=== PATIENT | female | born 1960 | race Caucasian/White ===

== ENCOUNTER → 2018-07-11 13:17 | Outpatient (BNVA) | payer MEDICARE, MEDICAID, SELFPAY | PROVIDERS: PCP Family Medicine; Visit Provider Psychiatry & Neurology Neurology | DX: G40.109 Localization-related (focal) (partial) symptomatic epilepsy and epileptic syndromes with simple partial seizures, not intractable, without status epilepticus (principal); Q04.6 Congenital cerebral cysts; N20.0 Calculus of kidney | CPT/HCPCS: 99214 ==

== ENCOUNTER 2018-10-03 09:11 | Outpatient (CLI) | payer MEDICARE, MEDICAID, SELFPAY ==
--- NOTE | 2018-10-03 13:34 | DI.RAD_ITS ---
SYMPTOMS/DIAGNOSIS: MONITOR KIDNEY STONE, CALCULUS OF KIDNEY, NEPHROLITHIASIS, N20.0 FLAT PLATE ABDOMEN: Comparison is 05/04/16. The kidneys are largely obscured by overlying bowel. No urinary tract calculi are identified. Calcifications in the pelvis appear stable compared to 2016 and likely are vascular in nature. There is a moderate amount of retained stool in the colon. There is again seen a mild left convex scoliosis of the lumbar spine. The bones appear intact. IMPRESSION: 1. No obvious urinary tract calculi. 2. Moderate amount of retained stool.
== END 2018-10-03 09:31 ==
PROVIDERS: PCP Family Medicine; Visit Provider Psychiatry & Neurology Neurology
DX: N20.0 Calculus of kidney (principal); K59.00 Constipation, unspecified
CPT/HCPCS: 74018

== ENCOUNTER 2018-10-10 16:51 | Outpatient (REF) | payer MEDICARE, MEDICAID, SELFPAY ==
--- NOTE | 2018-10-10 15:30 | PAPFT_PTH ---
PATIENT: Navya Barron LOC: [facility] U#:[id number] AGE/SX: 58/F ROOM: RE10/10/[address]: Angelique Cardona MD : 1960 BED: DIS: 10/10/2018 SPEC #: [id number] RECD: 10/11/18 12:47 STATUS: LOU GOLDMAN #: [id number] SRIRAM: 10/10/18 15:[address]: Angelique Cardona DEPT: [facility] Cytology RECD BY: Esthela Escobar Tissues: 1 - CX/ENDOCX FOR PAP SMEARS Procedures: PAP THIN PREP/UVM Screening HPV DNA PROBE Comments: [id number]
== END 2018-10-10 17:11 ==
LOC: LBN 16:51
PROVIDERS: PCP Family Medicine; Visit Provider Family Medicine
DX: Z12.4 Encounter for screening for malignant neoplasm of cervix (principal); Z11.51 Encounter for screening for human papillomavirus (HPV)
CPT/HCPCS: 88142; 87624

== ENCOUNTER 2018-10-15 00:19 | Outpatient (CLI) | payer MEDICARE, MEDICAID, SELFPAY ==
--- NOTE | 2018-10-15 15:30 | DI.MAMMO_ITS ---
SYMPTOM/DIAGNOSIS: SCREENING MAMMOGRAMS: Mammograms were interpreted according to the usual protocol including computer analysis with CAD system, tomosynthesis and C view imaging. Comparison is made with exams from [id number]. The breasts are composed of scattered fibroglandular densities, breast density, Category B. The patient was difficult to position due to immobility of the right arm and shoulder. The pectoral muscle was unable to sufficiently included on the right MLO view. No suspicious masses or suspicious microcalcifications are seen. There has been no significant change. IMPRESSION: Category 1, negative mammogram. Yearly screening mammography is recommended. [facility] ASSESSMENT OF FINDINGS: Negative. Category 1. Patient will receive a letter notifying them of these results. BI-RADS category B. There are scattered areas of fibroglandular density.
== END 2018-10-15 00:39 ==
PROVIDERS: PCP Family Medicine; Visit Provider Family Medicine
DX: Z12.31 Encounter for screening mammogram for malignant neoplasm of breast (principal)
CPT/HCPCS: 77063; 77067

== ENCOUNTER → 2019-01-14 13:59 | Outpatient (BNVA) | payer MEDICARE, MEDICAID, SELFPAY | PROVIDERS: PCP Family Medicine; Visit Provider Psychiatry & Neurology Neurology | DX: G40.109 Localization-related (focal) (partial) symptomatic epilepsy and epileptic syndromes with simple partial seizures, not intractable, without status epilepticus (principal); N20.0 Calculus of kidney; R25.2 Cramp and spasm | CPT/HCPCS: 99214 ==

== ENCOUNTER → 2019-01-21 11:30 | Outpatient (BNVA) | payer MEDICARE, MEDICAID, SELFPAY | PROVIDERS: PCP Family Medicine; Referring Provider Family Medicine; Visit Provider Physical Therapy Assistant | DX: K21.9 Gastro-esophageal reflux disease without esophagitis (principal); Z12.11 Encounter for screening for malignant neoplasm of colon | CPT/HCPCS: 99213 ==

== ENCOUNTER 2019-02-26 06:44 | Day surgery (SDC) | payer MEDICARE, MEDICAID, SELFPAY ==
--- NOTE | 2019-02-26 06:50 | ENDO_ITS ---
Date of service: 02/26/19 Time of Service: :43 Endoscopy Report DATE OF PROCEDURE: 02/26/19 PRE-OP DIAGNOSIS: Colon CAncer Screening/ Breakthrough GERD symptoms POST-OP DIAGNOSIS: other (Gastritis and esophagitis, normal colonoscopy) PROCEDURE: 1. EGD with bx 2. Colonoscopy SURGEON: Marly Sterling ANESTHESIA: other (General/ ASA 2/Harris Carlos CRNA and Valente Bolton CRNA) ESTIMATED BLOOD LOSS: 3 PATHOLOGY: other (Antrum bx, GE junction bx) COMPLICATIONS: None DISPOSITION: same day INDICATIONS: Mrs. Barron is a pleasant 58 year old female seen in the office for a screening colonoscopy as well as an EGD for Breakthrough GERD symptoms. She is on 40 mg of omeprazole per day. Risks, benefits and complications have been reviewed. Complications include but are not limited to bleeding, pain, perforation, missed small lesion/polyp, sore throat, aspiration and adverse reaction to the medications. Questions were entertained and answered to their satisfaction and they wished to proceed. No guarantees were given or implied. PREP: Miralax/Dulcolax PROCEDURE START TIME: PROCEDURE END TIME: 08:15 FINDINGS: Moderate GAstritis and esophagitis Small Hiatral hernia Normal colonoscopy PROCEDURE DESCRIPTION: After informed consent was obtained the patient was take to the procedure room and placed in a supine position. Monitors were applied and a time out was done. The patients name, date of , procedure type, allergies to medications and metal in their body was reviewed. A bite block was placed and the patient was sedated. Once sedated and comfortable the gastroscope was advanced through the oropharynx which was grossly normal into the esophagus. The proximal and mid- esophagus were normal. In the distal esophagus there was mild inflammation noted. The scope was advanced into the stomach and through the pylorus into the 3rd portion of the duodenum. The duodenum was noted to be normal. The scope was retracted back into the stomach and biopsies were done to rule out H. pylori. There were no ulcers. The scope was retro-flexed. The cardia and fundus were noted to be normal. There was a small hiatal hernia noted. The scope was retracted back into the esophagus and biopsies were done of the GE junction to rule out Delgado's. The Z line was regular. The GE junction was at 33 cm. While the patient was still sedated they were placed in a left decubitous position. A rectal exam was done. External exam was normal. Internal exam revealed a normal sphincter tone and no palpable masses. The scope was then introduced and retro-flexed. No internal hemorrhoids, masses or polyps were identified. The scope was then advanced to the cecum without difficulty. The TI and appendiceal orifice were identified. The prep was adequate. The scope was then slowly retracted over 15 minutes back into the rec anupama. The scope was removed and the patient was woken up and taken back to Same day surgery in stable condition. The patient tolerated the procedure well and there were no immediate complications. Follow up: with PCP in 2 weeks. I will add Ranitidine at night.
--- NOTE | 2019-02-26 06:53 | W.PM.HP.N ---
Date of service: 02/26/19 Assessment and Plan Assessment and plan (1) Encounter for colonoscopy due to history of adenomatous colonic polyps: Status: Acute Assessment and plan: P\\ Colonoscopy under sedation Risks, benefits and complications have been reviewed. Complications include but are not limited to bleeding, pain, perforation, missed small lesion/polyp, sore throat, aspiration and adverse reaction to the medications. Questions were entertained and answered to their satisfaction and they wished to proceed. No guarantees were given or implied. (2) GERD (gastroesophageal reflux disease): Status: Chronic Assessment and plan: P\\ EGD Risks, benefits and complications have been reviewed. Complications include but are not limited to bleeding, pain, perforation, sore throat, aspiration, and adverse reaction to the medications. Questions were entertained and answered to their satisfaction and they wished to proceed. No guarantees were given or implied. Qualifiers: Esophagitis presence: esophagitis presence not specified Qualified Code(s): K21.9 - Gastro-esophageal reflux disease without esophagitis History of Present Illness Narrative: 58 y/o female with history of cerebral palsy, partial epilepsy and right hemiparesis presents for colonoscopy screening pre-op. Her last screening was in 2008, which was unremarkable. She denies a family history of colon cancer. She denies any changes in bowel habits including bloody or black tarry stools, abdominal pain, diarrhea or constipation. She denies constitutional symptoms. Denies use of marijuana or any other recreational or illegal drugs. Of note she does reports complaints of burning in the throat at times. She has been taking Omeprazole with mild improvement in her symptoms. She denies dysphagia. She denies chest pain, palpitations, dyspnea or dyspnea with exertion. She denies family history of adverse reactions or complications with anesthesia. Of note she reports following a procedure under sedation for the excision of a lipoma, while recovering from anesthesia she had seizures. Review of Systems Constitutional Constitutional: Denies fever(s) Cardiovascular Cardiovascular: Denies chest pain, Denies palpitations and Denies dyspnea Respiratory Respiratory: Denies dyspnea Endocrine Endocrine: Denies palpitations [facility] Medical History (Updated 02/26/19 @ 06:56 by Marly Sterling MD) Anxiety Cerebral palsy Depression GERD (gastroesophageal reflux disease) (Chronic) Nephrolithiasis (Chronic) Seizure disorder Surgical History BENIGN-tumor removed (04/14/15) Bilateral salpingectomy with oophorectomy bilateral salpingo oophorectomy (benign tumor) -2014 [facility] [place] Breast, Cyst Aspiration (11/22/04) CLAVICLE FX (06/05/06) LEFT Colonoscopy - MAC 10/20/08 Ligation of fallopian tube RIB FX (06/27/07) 10TH RIGHT RIB Family History Mother , AGE 65 Substance abuse Diabetes Heart disease Father Heart disease Alcohol abuse Stroke Sister Diabetes Depression Sister Alcohol abuse Daughter No problems noted. Daughter Asthma Social History Smoking/Tobacco Use Status: Never Alcohol Intake: former Drug use: Never Substance use type: does not use Duration: 30-45 minutes/day Frequency: 3-4 times per week Cherelle/Quaker: None Special cherelle needs: No Do you feel safe at home: Yes Do you feel safe in your relationship?: Yes Meds Home Medications and Allergies Home Medications Medication Instructions Recorded Confirmed Type calcium citrate-vitamin D3 1 ea PO BID #90 tab-cap 02/20/14 02/21/19 History [Calcitrate-Vitamin D] folic acid 1 mg tablet 1 mg PO DAILY #90 tab-cap 04/12/18 02/21/19 Rx paroxetine HCl 30 mg tablet 60 mg PO DAILY #180 tab-cap 04/12/18 02/21/19 Rx omeprazole 40 mg capsule,delayed 20 mg PO DAILY tab-cap 07/11/18 02/21/19 History release zonisamide 100 mg capsule 400 mg PO HS #360 tab-cap 01/14/19 02/21/19 Rx bisacodyl 5 mg tablet,delayed 5 mg PO ONCE #4 tab 01/21/19 01/21/19 Rx release magnesium hydroxide 400 mg (170 mg mg PO DAILY tab 01/21/19 01/21/19 History magnesium) chewable tablet polyethylene glycol 3350 17 238 g PO ONCE #238 gm 01/21/19 01/21/19 Rx gram/dose oral powder Allergies Allergy/AdvReac Type Severity Reaction Status Date / Time rizatriptan benzoate Allergy Unknown Verified 02/21/19 15:34 [From [facility]] Silk Tape AdvReac Unknown Skin Rash Uncoded 02/21/19 15:34 Exam HENMT Head: normocephalic and atraumatic Resp Effort & Inspection: normal respiratory effort Auscultation: clear to auscultation bilaterally Cardio Rate: regular rate Rhythm: regular rhythm
[2019-02-26 06:54] VITALS: BP 99/66; PULSE 81; RESP 18; TEMP 36.6; O2SAT 95
--- NOTE | 2019-02-26 06:58 | W.PM.DSUDISC ---
Discharge Plan Disposition Patient Disposition: HOME Condition: Good Discharge Details Reason For Visit: Colon Cancer Screening/ GERD Attending Provider: Marly Sterling Primary Care Provider: Angelique Cardona Home Meds and New Rx's Prescriptions: New omeprazole 40 mg capsule,delayed release(DR/EC) 40 mg PO QAM Qty: 30 RF: 0 ranitidine HCl [Heartburn Relief (ranitidine)] 150 mg tablet 150 mg PO QHS Qty: 30 RF: 0 Continued zonisamide [Zonegran] 100 mg capsule 400 mg PO HS Qty: 360 RF: 3 paroxetine HCl [Paxil] 30 mg tablet 60 mg PO DAILY Qty: 180 RF: 3 folic acid 1 mg tablet 1 mg PO DAILY Qty: 90 RF: 4 magnesium hydroxide 400 mg (170 mg magnesium) tablet,chewable PO DAILY RF: 0 calcium citrate-vitamin D3 [Calcitrate-Vitamin D] 1 EACH tablet 1 ea PO BID Qty: 90 RF: 11 Discontinued omeprazole 40 mg capsule,delayed release(DR/EC) 20 mg PO DAILY RF: 0 polyethylene glycol 3350 17 gram/dose powder 238 g PO ONCE Qty: 238 RF: 0 bisacodyl [Dulcolax (bisacodyl)] 5 mg tablet,delayed release (DR/EC) 5 mg PO ONCE Qty: 4 RF: 0 Discharge Instructions Instructions: Colonoscopy (DC), Upper Endoscopy (DC), Diet for Stomach Ulcers and Gastritis (GEN), Gastritis (DC) Additional Instructions: Findings: mild to moderate gastritis and esophagitis Follow up: with PCP in 2 weeks Colonoscopy in 10 years Please call if you develop: fevers >101.5 Nausea or Vomiting Abdominal pain that is not transient DAY SURGERY UNIT POST ENDOSCOPY INSTRUCTIONS 1. Because there will be medication in your system for the next 24 hours, you may feel a little sleepy. Your coordination will be affected. Therefore: a. Do not drive or operate dangerous equipment for 24 hours. b. Do not drink alcohol beverages for 24 hours (not even beer). c. Plan to go home and rest for the day. 2. Generally there are no restrictions on your activity after a day or so has gone by, but you may feel a bit fatigued for a few days. 3 After you arrive home you may have a light meal and return to a normal diet as you can tolerate it without feeling sick to your stomach. 4. After surgery, you may feel pain or discomfort. This should be only transient, but if it persists please contact your doctor. 5. If there are any questions regarding the findings of your procedure, please feel free to contact your doctor. 6. If you are unable to contact your doctor with a problem, contact the hospital at [phone]. 7. Continue all your regular medications unless directed otherwise. I understand the above instructions and have no questions. Signature of Patient or Responsible Adult Escort Date/Time Name of Responsible Adult Escort Signature of Nurse Date/Time Referrals: Angelique Cardona MD [Primary Care Provider] - (2 weeks) Activity:: Activity as Tolerated Diet:: low acid Discharge Orders Discharge Orders: Discharge Order (Routine); Ordered 02/26/19 Ordered By: Marly Sterling DS: Diagnosis Discharge Diagnosis (1) Encounter for colonoscopy due to history of adenomatous colonic polyps: Status: Acute (2) GERD (gastroesophageal reflux disease): Status: Chronic (3) Gastritis: Status: Acute (4) Esophagitis: Status: Acute (5) H/O esophagogastroduodenoscopy: Status: Chronic
[2019-02-26] MEDS: Lactated Ringers 1,000 ML 80 ML IV (07:30)
--- NOTE | 2019-02-26 07:45 | STOM_PTH ---
PATIENT: Navya Barron LOC: [facility] U#:[id number] AGE/SX: 58/F ROOM: RE02/26/[address]: Marly Sterling MD : 1960 BED: DIS: 02/26/2019 SPEC #: [id number] RECD: 02/26/19 12:42 STATUS: LOU RE #: [id number] SRIRAM: 02/26/19 07:[address]: Marly Sterling DEPT: Surgical Specimen RECD BY: Esthela Escobar ENTERED: 02/26/19 12:43 SP TYPE: STOMACH OTHR DR: Angelique Cardona MD Tissues: 1 - STOMACH BIOPSY 2 - ESOPHAGUS BIOPSY Procedures: GROSS AND MICRO LEVEL 4 Comments: [id number]
[2019-02-26 09:01] VITALS: BP 113/71; PULSE 78; RESP 16; TEMP 36.3; O2SAT 99
== END 2019-02-26 09:20 | disposition home or self-care (01) ==
PROVIDERS: PCP Family Medicine; Visit Provider Surgery
PROC: (CPT 43239; principal; 2019-02-26 07:30)
DX: Z12.11 Encounter for screening for malignant neoplasm of colon (principal); K21.0 Gastro-esophageal reflux disease with esophagitis; K31.89 Other diseases of stomach and duodenum; K44.9 Diaphragmatic hernia without obstruction or gangrene; G80.9 Cerebral palsy, unspecified
CPT/HCPCS: 43239; G0121; 88305; NC

== ENCOUNTER 2019-03-16 14:44 | Emergency (ER) | payer MEDICARE, MEDICAID, SELFPAY ==
--- NOTE | 2019-03-16 15:55 | DI.RAD_ITS ---
EXAM: XR FOOT LT COMPLETE INDICATION: left foot pain. COMPARISON: No exams were available for comparison TECHNIQUE: 2D digital imaging was performed. FINDINGS: Three views were obtained. There is a fracture of the 5th metatarsal with moderate displacement. Th e fracture involves the distal diaphysis and metaphysis. The articulation with the proximal phalanx of the 5th toe appears intact. No additional fracture seen. IMPRESSION:
--- NOTE | 2019-03-16 17:11 | DI.VRAD_ITS ---
PROCEDURE INFORMATION: Exam: XR Left Foot Complete Exam date and time: 03/16/2019 4:51 PM Clinical history: 58 years old, female; Injury or trauma; Fall; Initial encounter; Blunt trauma; Foot; Left TECHNIQUE: Imaging protocol: XR Left foot. Views: 3 or more views. COMPARISON: No relevant prior studies available. FINDINGS: Bones/joints: Fracture dislocation left fifth distal metatarsal. Soft tissues: Soft tissue swelling left foot. IMPRESSION: Fracture dislocation of the left metatarsal. Dictated and Authenticated by: Cherrie Moseley MD. Ordering:ELBERT Boyd MD
--- NOTE | 2019-03-16 17:12 | W.ED.GENAD ---
Discharge Plan Discharge Details Chief Complaint: Orthopedic Clinical Impression: Closed fracture of fifth metatarsal bone of left foot Primary Care Provider: Angelique Cardona ED Provider: Tru Leong Home Meds and New Rx's Prescriptions: No Action zonisamide [Zonegran] 100 mg capsule 400 mg PO HS Qty: 360 RF: 3 paroxetine HCl [Paxil] 30 mg tablet 60 mg PO DAILY Qty: 180 RF: 3 folic acid 1 mg tablet 1 mg PO DAILY Qty: 90 RF: 4 magnesium hydroxide 400 mg (170 mg magnesium) tablet,chewable 400 mg PO DAILY RF: 0 calcium citrate-vitamin D3 [Calcitrate-Vitamin D] 1 EACH tablet 1 ea PO BID Qty: 90 RF: 11 ranitidine HCl [Heartburn Relief (ranitidine)] 150 mg tablet 150 mg PO QHS Qty: 30 RF: 0 omeprazole 40 mg capsule,delayed release(DR/EC) 20 mg PO QAM RF: 0 Discharge Instructions Additional Instructions: Your x-rays confirm a fracture of the outside bone in your left foot. I spoke to Dr. Lyle from orthopedics who recommends girish taping the fifth and fourth toes together and wearing a orthopedic boot until follow-up. You can weight-bear over the left foot as tolerated while using a cane and/or walker. Take Tylenol and/or Motrin for pain. Ice and elevate the limb for swelling. Return should symptoms of pain or swelling significantly increased. Referrals: Sameer Lyle MD [ [facility] STAFF PHYSICIAN] - 3 days Discharge Data Discharge Date/Time-TO BE ENTERED AT DEPARTURE: 03/16/19 17:43 Medical Decision Making This is a nontoxic-appearing 4-year-old female with a significant history for cerebral palsy who presents to the emergency department with left foot injury. X-rays confirm distal fifth metatarsal fracture. Minimal displacement. No significant angulation. No tenting or open lesion on exam. Discussed case with Dr. Lyle from orthopedics who states based on the x-ray read girish taping of the fifth and fourth digit along with stiff soled shoe and/or orthopedic boot with weight bearing as tolerated indicated. We will follow-up with the office in the next 1 to 2 weeks. HPI General Date/Time Provider Initiated Documentation: 03/16/19 15:10. HPI Narrative: Patient is a 58-year-old female with a significant history for cerebral palsy who presents to the emergency department status post left foot injury. Patient states that she struck her left foot on the hot tub at home. She had pain and swelling along the distal lateral aspect of the left foot. She denies any numbness or tingling. She is been unable to place full weight over the area since the injury. Related Data Home Medications Medication Instructions Recorded Confirmed calcium citrate-vitamin D3 1 ea PO BID #90 tab-cap 02/20/03/16/19 [Calcitrate-Vitamin D] folic acid 1 mg tablet 1 mg PO DAILY #90 tab-cap 04/12/18 03/16/19 paroxetine HCl 30 mg tablet 60 mg PO DAILY #180 tab-cap 04/12/18 03/16/19 zonisamide 100 mg capsule 400 mg PO HS #360 tab-cap 01/14/19 03/16/19 magnesium hydroxide 400 mg (170 mg 400 mg PO DAILY tab 01/21/19 03/16/19 magnesium) chewable tablet ranitidine HCl [Heartburn Relief 150 mg PO QHS #30 tab 02/26/19 03/16/19 (ranitidine)] omeprazole 20 mg PO QAM 03/16/19 03/16/19 Previous Rx's Medication Instructions Recorded folic acid 1 mg tablet 1 mg PO DAILY #90 tab-cap 04/12/18 paroxetine HCl 30 mg tablet 60 mg PO DAILY #180 tab-cap 04/12/18 zonisamide 100 mg capsule 400 mg PO HS #360 tab-cap 01/14/19 ranitidine HCl [Heartburn Relief 150 mg PO QHS #30 tab 02/26/19 (ranitidine)] Allergies Allergy/AdvReac Type Severity Reaction Status Date / Time rizatriptan benzoate Allergy Unknown Verified 03/16/19 14:56 [From [facility]] Silk Tape AdvReac Unknown Skin Rash Uncoded 03/16/19 14:56 General Stated Complaint: Orthopedic CORY: 4 Review of Systems Constitutional Constitutional: Denies lethargy and Denies weakness ENT Ears, Nose, Mouth, and Throat: Denies dizziness Musculoskeletal Musculoskeletal: Reports abnormal gait, Reports deformity, Denies muscle weakness, Denies numbness and Denies stiffness Neurologic Neurologic: Reports abnormal gait, Denies dizziness, Denies focal weakness, Denies numbness and Denies weakness [facility] Medical History Anxiety Cerebral palsy Depression GERD (gastroesophageal reflux disease) (Chronic) Nephrolithiasis (Chronic) Seizure disorder Surgical History BENIGN-tumor removed (04/14/15) Bilateral salpingectomy with oophorectomy bilateral salpingo oophorectomy (benign tumor) [facility] [place] Breast, Cyst Aspiration (11/22/04) CLAVICLE FX (06/05/06) LEFT Colonoscopy - MAC (~02/26/19) 10/20/08 H/O esophagogastroduodenoscopy (Chronic ~02/26/19) Ligation of fallopian tube RIB FX (06/27/07) 10TH RIGHT RIB Family History Mother , AGE 65 Substance abuse Diabetes Heart disease Father Heart disease Alcohol abuse Stroke Sister Diabetes Depression Sister Alcohol abuse Daughter No problems noted. Daughter Asthma Social History Smoking/Tobacco Use Status: Never Alcohol Intake: former Drug use: Never Substance use type: does not use Duration: 30-45 minutes/day Frequency: 3-4 times per week Cherelle/Baptism: None Special cherelle needs: No Do you feel safe at home: Yes Exam Const General: cooperative, healthy appearing, comfortable and no acute distress Orientation: alert, awake and oriented x3 HENMT Head: normal to inspection Resp Effort & Inspection: normal respiratory effort Extrem Left lower extremity: foot Details: tenderness and ecchymosis (distal dorsal lateral left foot) Course Vital Signs Vital signs: Respiratory Effort Non-Labored 03/16/19 14:52
[2019-03-16 17:24] VITALS: BP 110/61; PULSE 66; RESP 16; TEMP 36.6
== END 2019-03-16 17:43 ==
PROVIDERS: Emergency Provider Physician Assistant; PCP Family Medicine
DX: S92.352A Displaced fracture of fifth metatarsal bone, left foot, initial encounter for closed fracture (principal); W22.8XXA Striking against or struck by other objects, initial encounter
CPT/HCPCS: 26600; 28470; 73630; L4361

== ENCOUNTER 2019-04-09 10:11 | Outpatient (CLI) | payer MEDICARE, MEDICAID, SELFPAY ==
--- NOTE | 2019-04-09 09:23 | DI.RAD_ITS ---
EXAM: XR FOOT LT COMPLETE INDICATION: F/U FRACTURE. TECHNIQUE: 2D digital imaging was performed. FINDINGS: There has been no change in alignment of the distal 5th metatarsal fracture.
== END 2019-04-09 10:31 ==
PROVIDERS: PCP Family Medicine; Visit Provider Student in an Organized Health Care Education/Training Program
DX: S92.352A Displaced fracture of fifth metatarsal bone, left foot, initial encounter for closed fracture (principal); W19.XXXA Unspecified fall, initial encounter; G40.909 Epilepsy, unspecified, not intractable, without status epilepticus; Z79.899 Other long term (current) drug therapy; G80.9 Cerebral palsy, unspecified
CPT/HCPCS: 99204; 99215; 73630

== ENCOUNTER 2019-04-23 08:39 | Outpatient (CLI) | payer MEDICARE, MEDICAID, SELFPAY ==
--- NOTE | 2019-04-23 14:00 | DI.US_ITS ---
EXAM: US LOWER EXTREMITY VENOUS RT US LOWER EXTREMITY VENOUS RT CLINICAL HISTORY: injury right leg R60.9 EDEMA, R22.9 SWELLING. injury right leg R60.9 EDEMA, R22.9 SWELLING TECHNIQUE: Lower extremity venous ultrasound performed using grayscale, color-flow, and spectral Dop pler analysis. COMPARISON: No exams were available for comparison FINDINGS: The common femoral, femoral and popliteal veins demonstrate normal compressibility, augmentation, and color Doppler. The posterior tibial veins are patent. The saphenous vein appears free of thrombus. No Leiva's cyst or hematoma is seen. IMPRESSION: No evidence of DVT.
== END 2019-04-23 08:59 ==
PROVIDERS: PCP Family Medicine; Visit Provider Nurse Practitioner
DX: R22.41 Localized swelling, mass and lump, right lower limb (principal); R60.0 Localized edema; S89.91XA Unspecified injury of right lower leg, initial encounter
CPT/HCPCS: 93971

== ENCOUNTER 2019-05-14 09:09 | Outpatient (CLI) | payer MEDICARE, MEDICAID, SELFPAY ==
--- NOTE | 2019-05-14 09:30 | DI.RAD_ITS ---
EXAM: XR FOOT LT COMPLETE INDICATION: f/u left fifth metatarsal bone of left foot.. COMPARISON: XR FOOT LT COMPLETE from 04/09/2019 TECHNIQUE: 2D digital imaging was performed. FINDINGS: There has been no change in the alignment of the previously noted fracture at the distal 5th metatars al. There is increased callus formation when compared with the previous exam. No new abnormalities a re seen. IMPRESSION
== END 2019-05-14 09:29 ==
PROVIDERS: PCP Family Medicine; Referring Provider Family Medicine; Visit Provider Student in an Organized Health Care Education/Training Program
DX: S92.352D Displaced fracture of fifth metatarsal bone, left foot, subsequent encounter for fracture with routine healing (principal); W01.0XXD Fall on same level from slipping, tripping and stumbling without subsequent striking against object, subsequent encounter
CPT/HCPCS: 99213; 73630

== ENCOUNTER → 2019-07-15 12:09 | Outpatient (BNVA) | payer MEDICARE, MEDICAID, SELFPAY | PROVIDERS: PCP Family Medicine; Referring Provider Family Medicine; Visit Provider Psychiatry & Neurology Neurology | DX: R69 Illness, unspecified (principal) | CPT/HCPCS: 99213 ==

== ENCOUNTER 2019-07-15 14:05 | Outpatient (CLI) | payer MEDICARE, MEDICAID, SELFPAY ==
--- NOTE | 2019-07-15 12:57 | DI.RAD_ITS ---
EXAM: XR ABDOMEN FLAT PLATE INDICATION: NEPHROLITHIASIS, N20.0, MONITORING WHILE ON ZONEGRAN. COMPARISON: No exams were available for comparison TECHNIQUE: 2D digital imaging was performed. FINDINGS: The lung bases are clear. There is stool seen throughout the colon. There is no bowel distension or air-fluid levels. No urinary tract calculi are visible; however, stones could be obscured due to th e quantity of stool. Scoliosis and degenerative changes are seen in the spine. Hip joints are unrem arkable. IMPRESSION: Increased quantity of fecal material. No visible urinary tract calculi.
== END 2019-07-15 14:25 ==
PROVIDERS: PCP Family Medicine; Visit Provider Psychiatry & Neurology Neurology
DX: N20.0 Calculus of kidney (principal); K59.00 Constipation, unspecified; G40.109 Localization-related (focal) (partial) symptomatic epilepsy and epileptic syndromes with simple partial seizures, not intractable, without status epilepticus
CPT/HCPCS: 99213; 74018

== ENCOUNTER 2019-07-30 02:29 | Outpatient (CLI) | payer MEDICARE, MEDICAID, SELFPAY ==
[2019-07-30 12:57] LABS: ALT 19 U/L (14-59); AST 12 U/L (15-37); Albumin 3.8 g/dL (3.4-5.0); Alkaline Phosphatase 58 U/L (46-116); BUN 13 mg/dL (7-18); Bilirubin, Total 0.4 mg/dL (0.2-1.0); CREATININE 1.08 mg/dL (0.55-1.02); Calcium 9.1 mg/dL (8.5-10.1); Calculated LDL 164 mg/dL (<100); Chloride 107 mmol/L (98-107); Cholesterol 261 mg/dL (<200); Estimated GFR 51.58 (mL/min/1.73m2); Glucose 87 mg/dL (74-106); HDL Cholesterol 79 mg/dL (40-60); Potassium 3.9 mmol/L (3.5-5.1); Sodium 143 mmol/L (136-145); Triglyceride 93 mg/dL (<150)
== END 2019-07-30 02:49 ==
PROVIDERS: PCP Family Medicine; Visit Provider Family Medicine
DX: E78.5 Hyperlipidemia, unspecified (principal); E83.42 Hypomagnesemia
CPT/HCPCS: 36415; 80053; 80061; 83735

== ENCOUNTER → 2020-01-13 10:35 | Outpatient (BNVA) | payer MEDICARE, MEDICAID, SELFPAY | PROVIDERS: PCP Family Medicine; Referring Provider Family Medicine; Visit Provider Psychiatry & Neurology Neurology | DX: G40.109 Localization-related (focal) (partial) symptomatic epilepsy and epileptic syndromes with simple partial seizures, not intractable, without status epilepticus (principal); N20.0 Calculus of kidney | CPT/HCPCS: 99213 ==

== ENCOUNTER 2020-06-29 02:35 | Outpatient (CLI) | payer MEDICARE, MEDICAID, SELFPAY ==
--- NOTE | 2020-06-29 08:45 | DI.RAD_ITS ---
EXAM: XR ABDOMEN FLAT PLATE CLINICAL HISTORY: monitoring for renal stones,NEPHROLITHIASIS,N20.0. TECHNIQUE: 2D digital imaging was performed. COMPARISON: CR XR ABDOMEN FLAT PLATE from 07/15/2019 FINDINGS: Bowel gas pattern is nonspecific in the supine position. Visualized lung bases are clear. There is scoliosis convex left in the lumbar spine again noted. Does not appear progressed when compared to 1 year ago. No calcifications seen over the right kidney. There may be a tiny 1 millimeter calcifica tion at the midpole of the left kidney. Phleboliths are again noted in the lower pelvis, unchanged. Sacroiliac joints unremarkable. IMPRESSION: Possible tiny 1 millimeter calculus at the midpole level of the left kidney. No obvious calculi evid ent within the ureters. Scoliosis again noted, unchanged from 1 year ago. DATA REPOSITORY: RADIATION DOSE DELIVERED:
== END 2020-06-29 02:55 ==
PROVIDERS: PCP Family Medicine; Visit Provider Psychiatry & Neurology Neurology
DX: N20.0 Calculus of kidney (principal)
CPT/HCPCS: 74018

== ENCOUNTER → 2020-07-06 11:14 | Outpatient (BNVA) | payer MEDICARE, MEDICAID, SELFPAY | PROVIDERS: PCP Family Medicine; Referring Provider Family Medicine; Visit Provider Psychiatry & Neurology Neurology | DX: G40.109 Localization-related (focal) (partial) symptomatic epilepsy and epileptic syndromes with simple partial seizures, not intractable, without status epilepticus (principal); N20.0 Calculus of kidney | CPT/HCPCS: 99213 ==

== ENCOUNTER 2021-01-04 01:22 | Outpatient (CLI) | payer MEDICARE, MEDICAID, SELFPAY ==
--- NOTE | 2021-01-04 08:15 | DI.MAMMO_ITS ---
Exam(s) MAMMO SCREENING EXAM: MAMMO SCREENING CLINICAL HISTORY: screening,Z12.39. TECHNIQUE: Bilateral full field digital CC and MLO mammographic images were obtained with 3D tomosyn thesis and utilizing computer aided detection (CAD). COMPARISON: Prior mammograms dating back to 2011, the most recent being October 2018.. FINDINGS: There has been no significant change in the appearance and distribution of the fibroglandular tissue. Asymmetric tissue in the upper-outer quadrant of the left breast is unchanged from prior studies. There is no significant architectural distortion nor skin thickening-retraction. IMPRESSION: No radiographic evidence of malignancy. BI-RADS Category 1 - Negative Breast Density - Category C - Heterogeneously dense Breast density Category C or D implies that the patient has dense breast tissue. Dense breast tissue can make it harder to find cancer on a mammogram. Dense breast tissue is also associated with an incr eased risk of breast cancer. This information about the result of the mammogram report was provided to the patient to raise their awareness. Use this report when you speak with the patient about their risks for breast cancer, which includes their family history. At that time, you may recommend additional screening tests (Ultrasoun d or MRI) as these tests may add significant information. A negative radiographic report should not delay biopsy if a dominant or clinically suspicious mass is present. Up to ten percent of cancers are not identified on mammography. A negative report may reinforce clinical impression. Adenosis and dense breasts may obscure an underlying neoplasm. False positive reports average 6 to 10%. Patient will receive a letter notifying them of these results.
== END 2021-01-04 01:42 ==
PROVIDERS: PCP Family Medicine
DX: Z12.31 Encounter for screening mammogram for malignant neoplasm of breast (principal)
CPT/HCPCS: 77063; 77067

== ENCOUNTER 2021-01-28 18:38 | Outpatient (CLI) | payer MEDICARE, MEDICAID, SELFPAY ==
--- NOTE | 2021-01-28 | DI.US_ITS ---
Exam(s) US RENAL EXAM: US RENAL CLINICAL HISTORY: R flank pain, blood in urine TECHNIQUE: Ultrasound performed using standard protocol. COMPARISON: CT RENAL COLIC WO CONTRAST from 10/31/2017 CT RENAL COLIC WO CONTRAST from 10/31/2017 US US LOWER EXTREMITY VENOUS RT from 04/23/2019 FINDINGS: The left kidney is normal in appearance with no evidence of hydronephrosis or nephrolithiasis. On the right there is moderate hydronephrosis. There is a nonobstructing upper pole renal calculus m easuring about 2-3 millimeters. Urinary bladder is essentially empty. Ureteral jets were noted bilaterally. IMPRESSION: Right hydronephrosis of uncertain etiology. Additional evaluation with CT urogram may be considered if clinically appropriate. DATA REPOSITORY:
--- NOTE | 2021-01-28 19:42 | DI.VRAD_ITS ---
PROCEDURE INFORMATION: Exam: US Retroperitoneal; Complete; Kidneys and Bladder Exam date and time: 01/28/2021 6:49 PM Age: 60 years old Clinical indication: Other: R flank pain; Patient HX: Blood in urine TECHNIQUE: Imaging protocol: Real-time ultrasound of the retroperitoneum with image documentation. Complete exam focused on the kidneys and bladder. COMPARISON: CT RENAL COLIC WO CONTRAST 10/31/2017 7:55 PM FINDINGS: Right kidney: Right kidney is 11 x 3.6 x 7.8 cm. There appears to be prominent dilatation of the right renal pelvis. This is also evident on a previous CT from 2018. There also appears to be caliectasis of the right kidney suggesting severe hydronephrosis. Some echogenic foci are seen within calyceal structures of the upper collecting system the right kidney suggesting stones. One measuring 2.[address] does show a distal obstructing ureteral calculus. Recurrent stone disease and obstructive changes suggested by this ultrasound. Left kidney: Left kidney is 8 x 3.4 x 3 cm. No hydronephrosis. No calculi. Urinary bladder: Urinary bladder is under distended. IMPRESSION: 1. Right hydronephrosis with severe renal pelvis distension. This is also seen on prior CT from 2018. There are current calculi seen in the upper pole calyx of the right kidney measuring up to approximately 2 mm. Patient does have a history of obstructive ureteral calculi. There is a obstructing calculus on prior CT in the intramural portion of the distal right ureter. Patient may have a recurrent right obstructive ureteral calculus. 2. Left kidney unremarkable in contour and echogenicity. No hydronephrosis. No calculi. 3. Urinary bladder is under distended. Limited evaluation. Grossly normal as visualized. Dictated and Authenticated by: Marshall Henry MD. Ordering:JOSE Darling MD
== END 2021-01-28 18:58 ==
LOC: NCHCN 18:46 → DI 18:48
PROVIDERS: PCP Family Medicine; Visit Provider Nurse Practitioner Family
DX: N13.2 Hydronephrosis with renal and ureteral calculous obstruction (principal); R10.9 Unspecified abdominal pain; R31.9 Hematuria, unspecified; Z87.442 Personal history of urinary calculi
CPT/HCPCS: 76770

== ENCOUNTER 2021-02-01 02:00 | Outpatient (CLI) | payer MEDICARE, MEDICAID, SELFPAY ==
--- NOTE | 2021-02-01 07:37 | DI.CT_ITS ---
Exam(s) CT ABDOMEN PELVIS WO/W EXAM: CT ABDOMEN PELVIS WO/W CLINICAL HISTORY: Hydronephrosis unknown etiology,n13.30 TECHNIQUE: Imaging Protocol: Axial computed tomography images with coronal and sagittal reformatted images were created and reviewed CONTRAST MATERIAL: Intravenous: Omnipaque 350 Contrast volume:100 mL Oral: No COMPARISON: CT ABD PELVIS WITH CONTRAST from 03/09/2015 CT ABD PELVIS WITH CONTRAST from 03/09/2015 CT RENAL COLIC WO CONTRAST from 10/31/2017 FINDINGS: ABDOMEN: Lung Bases: Normal where visualized. Liver: Normal density. Stable bilateral cysts. Portal, Superior Mesenteric, and Splenic Veins: Unremarkable. Gallbladder and Biliary Tract: No radiodense calculus or dilation. Pancreas: Normal density, no abnormal calcifications or inflammatory process. Spleen: Normal. Adrenals: No masses seen. Kidneys: Normal size, contour and axis. Left nephrolithiasis. No left ureterolithiasis or hydronephr osis. No masses seen. There is mild dilatation of the right renal collecting system throughout its entire length. There is thickening and enhancement of the wall of the collecting system throughout. There is mild infiltration of the fat surrounding the renal collecting system on the right. On the delayed images, there is IJ to contrast in the right renal pelvis. Abdominal Aorta: Abdominal portion non-dilated. Bowel: No obstruction or bowel wall thickening. Appendix is unremarkable. Peritoneal Cavity: No ascites, collection or mesenteric inflammatory response. No free air. Lymph Nodes: Within normal limits. Bones: Within normal limits for the patient's age. Soft Tissues: Unremarkable. PELVIS: Bladder: There is diffuse thickening of the wall of the urinary bladder. No intraluminal mass is see n Reproductive Organs: Unremarkable as visualized. Lymph Nodes: Within normal limits. Bones: Within normal limits for the patient's age. IMPRESSION: 1. Left nephrolithiasis but no evidence of hydronephrosis. 2. No evidence of right nephrolithiasis or ureterolithiasis. 3. [id number] dilatation of the right renal collecting system with thickening and enhancement o f the wall throughout its entire length. A non radiopaque stone may be considered. A mass or an inf ectious or inflammatory process cannot be excluded. A nuclear medicine renal scan may be considered for further evaluation. 4. Diffuse thickening of the wall of the urinary bladder without evident mass. This may be due to un derdistention. An infectious or inflammatory process cannot be excluded. Cystoscopy may be consider ed for further evaluation. RADIATION DOSE DELIVERED: 2,317.41mGy.cm Total DLP 2,317.41mGy.cm Total DLP DATA REPOSITORY: All CT scans at this facility are submitted to the National Radiology Data Registry (NRDR) Dose Index Registry (DIR) with the [employer] ([employer]). RADIATION OPTIMIZATION: All CT scans at this facility use at least one of these dose optimization te chniques: automated exposure control; mA and/or kV adjustment per patient size (includes targeted exa ms where dose is matched to clinical indication); or iterative reconstruction.
[2021-02-01 10:35] LABS: ALT 29 U/L (14-59); AST 17 U/L (15-37); Albumin 3.3 g/dL (3.4-5.0); Alkaline Phosphatase 63 U/L (46-116); Anion Gap 10.1 mmol/L (3-11); BUN 11 mg/dL (7-18); Bilirubin, Total 0.3 mg/dL (0.2-1.0); CO2 27.9 mmol/L (21.0-32.0); CREATININE 1.2 mg/dL (0.55-1.02); Calcium 9.6 mg/dL (8.5-10.1); Chloride 106 mmol/L (98-107); Estimated GFR 45.52 (mL/min/1.73m2); Glucose 91 mg/dL (74-106); Potassium 3.5 mmol/L (3.5-5.1); Sodium 144 mmol/L (136-145); Total Protein 7.8 g/dL (6.4-8.2)
[2021-02-01] MEDS: Omnipaque 350 MG/ML 100 ML BTL IV (11:27)
== END 2021-02-01 02:20 ==
PROVIDERS: PCP Family Medicine; Visit Provider Nurse Practitioner Family
DX: N13.30 Unspecified hydronephrosis; N20.0 Calculus of kidney; R93.5 Abnormal findings on diagnostic imaging of other abdominal regions, including retroperitoneum
CPT/HCPCS: 80053; 74178; J3490

== ENCOUNTER 2021-02-01 11:14 | Outpatient (CLI) | payer MEDICARE, MEDICAID, SELFPAY ==
--- NOTE | 2021-02-01 09:00 | DI.RAD_ITS ---
Exam(s) XR ABDOMEN FLAT PLATE EXAM: 2D digital imaging was performed. CLINICAL HISTORY: new kidney stone; on zonisamide; Ca rich?, N20.0. COMPARISON: CR XR ABDOMEN FLAT PLATE from 06/29/2020 TECHNIQUE: Supine views of the abdomen performed. FINDINGS: BOWEL GAS PATTERN: Nondistended. CALCIFICATIONS: The 1 mm calcification overlying the left renal shadow is unchanged. No other urinar y tract calculi are seen. Stable phleboliths are seen in the pelvis. OSSEOUS STRUCTURES: Stable left convex scoliosis of the lumbar spine. OTHER FINDINGS: None. IMPRESSION: 1. Nonobstructive bowel gas pattern. 2. Stable possible left nephrolithiasis. DATA REPOSITORY: RADIATION DOSE DELIVERED:
== END 2021-02-01 11:34 ==
PROVIDERS: PCP Family Medicine; Visit Provider Psychiatry & Neurology Neurology
DX: N20.0 Calculus of kidney (principal); R14.0 Abdominal distension (gaseous)
CPT/HCPCS: 80053; 74018; 74178; J3490

== ENCOUNTER → 2021-02-16 15:15 | Outpatient (BNVA) | payer MEDICARE, MEDICAID, SELFPAY | PROVIDERS: PCP Family Medicine; Referring Provider Family Medicine; Visit Provider Urology | DX: R31.29 Other microscopic hematuria (principal); R10.31 Right lower quadrant pain; N13.30 Unspecified hydronephrosis | CPT/HCPCS: 81003; 99204; 99215 ==

== ENCOUNTER → 2021-02-24 14:47 | Outpatient (BNVA) | payer MEDICARE, MEDICAID, SELFPAY | PROVIDERS: PCP Family Medicine; Referring Provider Family Medicine; Visit Provider Psychiatry & Neurology Neurology | DX: G40.109 Localization-related (focal) (partial) symptomatic epilepsy and epileptic syndromes with simple partial seizures, not intractable, without status epilepticus (principal); N20.0 Calculus of kidney | CPT/HCPCS: 99213 ==

== ENCOUNTER 2021-03-01 02:21 | Outpatient (CLI) | payer MEDICARE, MEDICAID, SELFPAY ==
--- NOTE | 2021-03-01 08:15 | DI.US_ITS ---
Exam(s) US RENAL EXAM: US RENAL CLINICAL HISTORY: check for resolution of hydronephrosis, FLANK PAIN, N13.30, R10.9 TECHNIQUE: Ultrasound of both kidneys performed using standard protocol. COMPARISON: CT CT ABDOMEN PELVIS WO/W from 02/01/2021 FINDINGS: RIGHT KIDNEY: Measures 8.8 cm in length. No cysts evident. Normal cortical thickness and corticomedullary different iation .No solid masses No intrarenal calculi nor hydronephrosis. LEFT KIDNEY: Measures 9.5 cm in length. No cysts evident. Normal cortical thickness and corticomedullary differen tiaion. No solids masses. There are 3 small calculi in the lower pole region of the left kidney, the largest measuring 3 millimeters. No hydronephrosis. URINARY BLADDER: Prevoid volume is 25 cc Postvoid volume is 8-9 cc Bladder cannot be adequately study because patient was not adequately prepped. Only 25 cc intraluminal time of this exam. IMPRESSION: 1. No significant ultrasound findings in the kidneys. 2. DATA REPOSITORY:
== END 2021-03-01 02:41 ==
PROVIDERS: PCP Family Medicine; Visit Provider Urology
DX: N13.39 Other hydronephrosis (principal); R10.32 Left lower quadrant pain
CPT/HCPCS: 76770

== ENCOUNTER → 2021-04-13 07:20 | Outpatient (BNVA) | payer MEDICARE, MEDICAID, SELFPAY | PROVIDERS: PCP Family Medicine; Referring Provider Family Medicine; Visit Provider Nurse Practitioner Gerontology | DX: N20.0 Calculus of kidney (principal) | CPT/HCPCS: 99443 ==

== ENCOUNTER → 2021-05-05 14:12 | Outpatient (BNVA) | payer MEDICARE, MEDICAID, SELFPAY | PROVIDERS: PCP Family Medicine; Referring Provider Family Medicine; Visit Provider Psychiatry & Neurology Neurology | DX: G40.109 Localization-related (focal) (partial) symptomatic epilepsy and epileptic syndromes with simple partial seizures, not intractable, without status epilepticus (principal); N20.0 Calculus of kidney | CPT/HCPCS: 99214 ==

== ENCOUNTER → 2021-06-30 13:48 | Outpatient (BNVA) | payer MEDICARE, MEDICAID, SELFPAY | PROVIDERS: PCP Family Medicine; Referring Provider Family Medicine; Visit Provider Psychiatry & Neurology Neurology | DX: G40.109 Localization-related (focal) (partial) symptomatic epilepsy and epileptic syndromes with simple partial seizures, not intractable, without status epilepticus (principal); N20.0 Calculus of kidney; L29.9 Pruritus, unspecified | CPT/HCPCS: 99213 ==

== ENCOUNTER 2021-08-20 10:56 | Emergency (ER) | payer MEDICARE, MEDICAID, SELFPAY ==
[2021-08-20] VITALS (31 sets, daily range): BP systolic 98–139; BP diastolic 59–91; PULSE 66–100; RESP 10–28; TEMP 36.7; O2SAT 92–98
--- NOTE | 2021-08-20 10:45 | RT.EKG_ITS ---
APPROVED REPORT Exam: Resting ECG Reason for Exam: SEIZURE Patient Location: E HR:81 bpm ECG Measurements Heart Rate 81 AXIS CA 141 P 25 QRSd 89 QRS 15 QT 394 T 52 QTc 457 Conclusion Sinus rhythm...normal P axis, V-rate 60- 99 normal sinus rhtyhm, normal axis, normal intervals, nonischemic
--- NOTE | 2021-08-20 11:15 | DI.CT_ITS ---
Exam(s) CT HEAD WO EXAM: CT HEAD WO CLINICAL HISTORY: seizure TECHNIQUE: COMPARISON: CT HEAD WITHOUT CONTRAST from 02/13/2017 FINDINGS: Noncontrast cranial CT was performed. 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 No change in appearance comparison with prior examination. No evidence of acute intracranial he morrhage, mass effect, or midline shift. IMPRESSION: No evidence of acute intracranial process. RADIATION DOSE DELIVERED: 603.8mGy.cm Total DLP !Error CTDIvol RADIATION OPTIMIZATION: All CT scans at this facility use at least one of these dose optimization te chniques: automated exposure control; mA and/or kV adjustment per patient size (includes targeted exa ms where dose is matched to clinical indication); or iterative reconstruction.
[2021-08-20 11:40] LABS: Abs Immature Grans 0.01 10^3/uL (0.0-0.06); Absolute Basophil Count 0.08 10^3/uL (0.0-0.2); Absolute Eosinophil Count 0.14 10^3/uL (0.0-0.7); Absolute Monocyte Count 0.28 10^3/uL (0.1-0.8); Absolute Neutrophil Count 2.86 10^3/uL (1.2-6.7); Basophils % 1.7; HCT 42.6 % (36.0-46.0); HGB 13.7 g/dL (11.2-15.7); Immature Grans % 0.2; Lymphocytes % 27.8; MCH 28.9 pg (27.0-33.0); MCHC 32.2 % (32.0-36.0); MCV 89.9 fL (80-95); MPV 9.4 fL (8.0-11.0); Neutrophils % 61.3; Nucleated RBC 0 %; Platelet Count 269 10^3/uL (130-400); RBC 4.74 10^6/uL (3.93-5.22); RDW 12.5 % (11.7-14.6); RDW-SD 41.3 fL; WBC 4.67 10^3/uL (4.4-10.8)
[2021-08-20] MEDS: diazePAM 10 MG/2 ML SYR (11:55)
[2021-08-20] MEDS: Normal Saline 1,000 ML 1000 ML IV (12:00)
[2021-08-20 12:14] LABS: INR 1.1 (0.9-1.1); PTT Activated 22.7 sec (21.0-27.5); Prothrombin Time 10.7 sec (9.3-11.0)
[2021-08-20] MEDS: Midazolam 2 MG/2 ML VIAL 5 MG IVP (12:17)
[2021-08-20 12:27] LABS: ALT 26 U/L (14-59); AST 22 U/L (15-37); Albumin 4.1 g/dL (3.4-5.0); Alkaline Phosphatase 58 U/L (46-116); Anion Gap 9.1 mmol/L (3-11); BUN 14 mg/dL (7-18); Bilirubin, Total 0.5 mg/dL (0.2-1.0); CO2 27.9 mmol/L (21.0-32.0); CREATININE 1.3 mg/dL (0.55-1.02); Calcium 9.7 mg/dL (8.5-10.1); Chloride 106 mmol/L (98-107); ETHANOL BLOOD < 3.0 mg/dL (<10); Estimated GFR 41.37 (mL/min/1.73m2); Glucose 95 mg/dL (74-106); Lipase 122 U/L (73-393); Magnesium 2.5 mg/dL (1.8-2.4); Potassium 4.3 mmol/L (3.5-5.1); Sodium 143 mmol/L (136-145); TSH (W/Ref FT4) 1.82 uIU/mL (0.36-3.74); Total Protein 7.8 g/dL (6.4-8.2)
[2021-08-20 12:41] LABS: Bilirubin Negative (Negative); Blood Negative (Negative); Clarity Clear (Clear); Glucose Negative (Negative); Ketones Negative (Negative); Leukocyte Esterase Negative (Negative); Nitrite Negative (Negative); Specific Gravity >= 1.030 (1.005-1.025); Urobilinogen 0.2 EU/dL (Up TO 0.2)
[2021-08-20 12:48] LABS: Bacteria Negative HPF (Negative); C & S Indicated? No; Casts 0-2 Hyaline LPF (Negative); Crystals Negative HPF (Negative); Epithelial Cells Few HPF (Negative); Mucus Negative (Negative); RBC Negative HPF (0-2); WBC Negative HPF (0-5)
[2021-08-20 12:52] LABS: *AMPHETAMINES SCREEN URINE Negative (Negative); *BARBITURATES SCREEN URINE Negative (Negative); *BENZODIAZEPINES SCREEN URINE Positive (Negative); Cannabinoids THC Negative (Negative); Cocaine Screen,Urine Negative (Negative); METHADONE URINE SCREEN Negative (Negative); OPIATES URINE SCREEN Negative (Negative); Tricyclic Antidepressants Negative (Negative)
--- NOTE | 2021-08-20 12:53 | NUR.NOTE ---
1155 radiology called to say pt was having a seizure, started when ct was finished. legs shaking. brought back to her room. valium -5 mg given. legs continued to shake. gave her versed at approx 1215-legs, arms and head were shaking. stopped after 4mg of versed. Nursing Note:
[2021-08-20] MEDS: Acetaminophen 325 MG TAB 650 MG PO (13:18)
--- NOTE | 2021-08-20 13:29 | NUR.NOTE ---
Nursing Note: PT INFO FAXED TO NEUROLOGY FOR BREAKTHROUGH SEIZURES. STEPHANY, ED
--- NOTE | 2021-08-20 13:36 | ED.GENADUL_ITS ---
Discharge Plan Disposition Patient Disposition: HOME Condition: Improving Discharge Details Clinical Impression: Seizure Primary Care Provider: Rhianna Garrett ED Provider: Jeffrey Davis Home Meds and New Rx's Prescriptions: Continued lamotrigine 100 mg tablet 100 mg PO BID Qty: 180 3RF Rx Instructions: with 25mg tabs magnesium hydroxide 400 mg (170 mg magnesium) tablet,chewable 400 mg PO DAILY 0RF polyethylene glycol 3350 [Miralax] 17 gram/dose powder 17 g PO DAILY PRN (Reason: constipation) Qty: 850 5RF Rx Instructions: twice a day for 2 days, then once a day. paroxetine HCl [Paxil] 30 mg tablet 60 mg PO DAILY Qty: 180 3RF calcium citrate-vitamin D3 [Calcitrate-Vitamin D] 1 EACH tablet 1 ea PO BID Qty: 90 11RF omeprazole 20 mg capsule,delayed release(DR/EC) 20 mg PO DAILY Qty: 90 3RF Rx Instructions: take one capsule at bedtime folic acid 1 mg tablet 1 mg PO DAILY Qty: 90 4RF Discharge Instructions Instructions: Recurrent Seizures in Adults (ED) Additional Instructions: Work-up in the ER does not reveal any obvious emergent process. You responded well to the medication given to you through the IV. I personally spoke with our neurologist, Dr. Cruz. The plan is to increase your lamotrigine dose, 100 mg in the morning and 200 mg at night. You have been given an extra dose here in the ER now. I would like you to watch for new or worsening symptoms and return to the ER for any concerns. Otherwise I placed you on the neurology list, their office should be contacting you to set up an outpatient appointment. Discharge Data Discharge Date/Time-TO BE ENTERED AT DEPARTURE: 08/20/21 14:23 Medical Decision Making 61-year-old female, past medical history of cerebral palsy, partial epilepsy, had a medication change at the end of June which was a 5-week taper. Reports increased stress and anxiety over the past week given her family situation. Reports having had a small seizure 1 week ago and then intermittent seizure activity for 1 hour today. Given 5 of Versed via EMS and asymptomatic upon arrival. Patient had had very well controlled partial epilepsy up until the last week or so. Given her seizure activity, will obtain head CT, obtain IV access, seizure precautions, and obtain laboratory values. No meningeal signs, no evidence of infection. Patient given 5 of Versed via EMS and upon arrival was asymptomatic. I was called from CT, patient was having a seizure after her CT imaging of her brain. I evaluated the patient in CT she was awake and alert but her lower extremities were jerking [id number]. She was brought back to room 6 and given 5 mg of Valium without change. She subsequently began having left arm movement and her torso was lifting off of the stretcher. Patient was awake, alert, calling for her sister. The jerking in her upper extremities resolved without any medication but she continued having movement in her torso and her bilateral lower extremities. She was then subsequently given 4 of Versed and again was asymptomatic. She now reports that she feels sore, requesting something for her discomfort. [address] imaging and laboratory values are grossly unremarkable. There has been no more seizure activity and patient remains asymptomatic. The seizure activity that I did witness was quite atypical. Case was discussed with Dr. Cruz at 1324. We discussed work-up thus far which has been unremarkable except for her atypical seizure. Patient is now asymptomatic. Plan is to give a 100 mg dose of lamotrigine now and will initiate increasing dose of 100 in the morning and then 200 in the evening. I will place her on the neurology list and she will have her office contact her to follow-up sometime next week. Strict discharge and return precautions were provided. Both patient and her training manager are comfortable with this plan. This documentation was generated using [employer] dictation system, please disregard any oddities of phrase or misspellings. Medical Records Medical records reviewed: Yes I reviewed the patient's medical records. Imaging Data Radiologic Study: Attestation: I personally reviewed and interpreted this imaging study as follows: Imaging: CT Scan Radiologist's impression: Exam(s) CT HEAD WO EXAM: CT HEAD WO CLINICAL HISTORY: seizure TECHNIQUE: COMPARISON: CT HEAD WITHOUT CONTRAST from 02/13/2017 FINDINGS: Noncontrast cranial CT was performed. 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 No change in appearance comparison with prior examination. No evidence of acute intracranial hemorrhage, mass effect, or midline shift. IMPRESSION: No evidence of acute intracranial process. Lab Data Lab results reviewed: Yes I reviewed the patient's lab results. Labs: Laboratory Tests Range/Units 08/20/21 08/20/21 08/20/21 11:05 11:05 11:40 WBC (4.4-10.8) 10^3/uL 4.67 RBC (3.93-5.22) 10^6/uL 4.74 Hgb (11.2-15.7) g/dL 13.7 Hct (36.0-46.0) % 42.6 MCV (80-95) fL 89.9 MCH (27.0-33.0) pg 28.9 MCHC (32.0-36.0) % 32.2 RDW (11.7-14.6) % 12.5 Plt Count (130-400) 10^3/uL 269 MPV (8.0-11.0) fL 9.4 Immature Gran % 0.2 Neutrophils % 61.3 Lymphocytes % 27.8 Monocytes % 6.0 Eosinophils % 3.0 Basophils % 1.7 Nucleated RBC % % 0 Absolute Neutrophils (1.2-6.7) 10^3/uL 2.86 Absolute Lymphocytes (1.2-3.4) 10^3/uL 1.30 Absolute Monocytes (0.1-0.8) 10^3/uL 0.28 Absolute Eosinophils (0.0-0.7) 10^3/uL 0.14 Absolute Basophils (0.0-0.2) 10^3/uL 0.08 PT (9.3-11.0) sec 10.7 INR (0.9-1.1) 1.1 APTT (21.0-27.5) sec 22.7 Sodium Cancelled Potassium Cancelled Chloride Cancelled Carbon Dioxide Cancelled Anion Gap Cancelled BUN Cancelled Creatinine Cancelled Estimated GFR/1.73 m2 Cancelled Glucose Cancelled Calcium Cancelled Magnesium Cancelled Total Bilirubin Cancelled AST Cancelled ALT Cancelled Alkaline Phosphatase Cancelled Total Protein Cancelled Albumin Cancelled Lipase Cancelled TSH Cancelled Urine Color (Yellow) Urine Clarity (Clear) Urine pH (5-8) Ur Specific [place] (1.005-1.025) Urine Protein (Negative) mg/dL Urine Ketones (Negative) mg/dL Urine Blood (Negative) Urine Nitrite (Negative) Urine Bilirubin (Negative) Urine Urobilinogen (Up TO 0.2) EU/dL Ur Leukocyte Esterase (Negative) Urine RBC (0-2) HPF Urine WBC (0-5) HPF Ur Epithelial Cells (Negative) HPF Urine Crystals (Negative) HPF Urine Bacteria (Negative) HPF Urine Casts (Negative) LPF Urine Mucus (Negative) Ur Culture Indicated? Urine Glucose (Negative) mg/dL Urine Opiates Screen (Negative) Urine Methadone Screen (Negative) Ur Barbiturates Screen (Negative) Ur Tricyclics Screen (Negative) Ur Amphetamines Screen (Negative) U Benzodiazepines Scrn (Negative) Urine Cocaine Screen (Negative) Ur THC Screen (Negative) Ethyl Alcohol Cancelled Range/Units 08/20/21 08/20/21 08/20/21 11:58 12:30 12:30 WBC (4.4-10.8) 10^3/uL RBC (3.93-5.22) 10^6/uL Hgb (11.2-15.7) g/dL Hct (36.0-46.0) % MCV (80-95) fL MCH (27.0-33.0) pg MCHC (32.0-36.0) % RDW (11.7-14.6) % Plt Count (130-400) 10^3/uL MPV (8.0-11.0) fL Immature Gran % Neutrophils % Lymphocytes % Monocytes % Eosinophils % Basophils % Nucleated RBC % % Absolute Neutrophils (1.2-6.7) 10^3/uL Absolute Lymphocytes (1.2-3.4) 10^3/uL Absolute Monocytes (0.1-0.8) 10^3/uL Absolute Eosinophils (0.0-0.7) 10^3/uL Absolute Basophils (0.0-0.2) 10^3/uL PT (9.3-11.0) sec INR (0.9-1.1) APTT (21.0-27.5) sec Sodium 143 Potassium 4.3 Chloride 106 Carbon Dioxide 27.9 Anion Gap 9.1 BUN 14 Creatinine 1.3 H Estimated GFR/1.73 m2 41.37 Glucose 95 Calcium 9.7 Magnesium 2.5 H Total Bilirubin 0.5 AST 22 ALT 26 Alkaline Phosphatase 58 Total Protein 7.8 Albumin 4.1 Lipase 122 TSH 1.82 Urine Color (Yellow) Yellow Urine Clarity (Clear) Clear Urine pH (5-8) 7.0 Ur Specific [place] (1.005-1.025) >= 1.030 H Urine Protein (Negative) mg/dL Trace H Urine Ketones (Negative) mg/dL Negative Urine Blood (Negative) Negative Urine Nitrite (Negative) Negative Urine Bilirubin (Negative) Negative Urine Urobilinogen (Up TO 0.2) EU/dL 0.2 Ur Leukocyte Esterase (Negative) Negative Urine RBC (0-2) HPF Negative Urine WBC (0-5) HPF Negative Ur Epithelial Cells (Negative) HPF Few Urine Crystals (Negative) HPF Negative Urine Bacteria (Negative) HPF Negative Urine Casts (Negative) LPF 0-2 Hyaline Urine Mucus (Negative) Negative Ur Culture Indicated? No Urine Glucose (Negative) mg/dL Negative Urine Opiates Screen (Negative) Negative Urine Methadone Screen (Negative) Negative Ur Barbiturates Screen (Negative) Negative Ur Tricyclics Screen (Negative) Negative Ur Amphetamines Screen (Negative) Negative U Benzodiazepines Scrn (Negative) Positive A Urine Cocaine Screen (Negative) Negative Ur THC Screen (Negative) Negative Ethyl Alcohol < 3.0 ECG Data Attestation: I personally reviewed and interpreted this ECG (s) as follows: Interpretation: Sinus rhythm, ventricular rate of 81, no STEMI HPI General Mode of arrival: EMS . Date/Time Provider Initiated Documentation: 08/20/21 11:15 . Limitations to Documentation: no limitations . Information obtained by: patient (And training manager) . HPI Narrative: Is a 61-year-old female, past history of cerebral palsy, partial epilepsy, GERD, depression, anxiety, presenting to the ER via EMS for seizure activity. Patient states that she had a small seizure 1 week ago but did not seek medical attention. Today she had what was described as witnessed seizure activity on and off for approximately 1 hour. During this time she was awake and was able to talk. Intermittently she had a bilateral leg shaking, coarse fastening, and then at times bilateral arm shaking as well. EMS gave 5 of Versed and she is asymptomatic upon arrival. Patient had her medication changed on 06-30-21, 5- week taper off of zonisamide and onto lamotrigine. Denies recent illness or trauma. Patient's training manager is present as well and she reports that the patient's sister was recently hospitalized and she has been unable to see her over the past week or so, this has caused increased stress and anxiety. Related Data Home Medications Medication Instructions Recorded Confirmed calcium citrate 315 mg 1 ea PO BID #90 tab-cap 02/20/14 08/21/21 calcium-vitamin D3 6.25 mcg (250 unit) tablet (Calcitrate) magnesium hydroxide 400 mg (170 mg 400 mg PO DAILY tab 01/21/19 08/21/21 magnesium) chewable tablet paroxetine HCl 30 mg tablet (Paxil) 60 mg PO DAILY #180 tab-cap 12/15/20 08/21/21 polyethylene glycol 3350 17 17 g PO DAILY PRN #850 g 12/15/20 08/21/21 gram/dose oral powder (Miralax) omeprazole 20 mg capsule,delayed 20 mg PO DAILY #90 cap 06/23/21 08/21/21 release lamotrigine 100 mg tablet 100 mg PO BID #180 tab 06/30/21 08/21/21 folic acid 1 mg tablet 1 mg PO DAILY #90 tab-cap 08/18/21 08/21/21 Previous Rx's Medication Instructions Recorded paroxetine HCl 30 mg tablet (Paxil) 60 mg PO DAILY #180 tab-cap 12/15/20 polyethylene glycol 3350 17 17 g PO DAILY PRN #850 g 12/15/20 gram/dose oral powder (Miralax) omeprazole 20 mg capsule,delayed 20 mg PO DAILY #90 cap 06/23/21 release lamotrigine 100 mg tablet 100 mg PO BID #180 tab 06/30/21 folic acid 1 mg tablet 1 mg PO DAILY #90 tab-cap 08/18/21 Allergies Allergy/AdvReac Type Severity Reaction Status Date / Time rizatriptan benzoate Allergy Unknown Verified 08/21/21 00:02 [From [facility]] Silk Tape AdvReac Unknown Skin Rash Uncoded 08/21/21 00:02 General Stated Complaint: Seizure CORY: 2 Review of Systems Constitutional Constitutional: Denies fatigue, Denies fever(s), Denies headache(s) and Denies weakness Eyes Eyes: Denies change in vision ENT Ears, Nose, Mouth, and Throat: Denies headache(s) and Denies neck pain Cardiovascular Cardiovascular: Denies chest pain and Denies dyspnea Respiratory Respiratory: Denies cough and Denies dyspnea Gastrointestinal Gastrointestinal: Denies abdominal pain, Denies nausea and Denies vomiting Genitourinary Genitourinary: Denies dysuria Musculoskeletal Musculoskeletal: Denies back pain, Denies neck pain, Denies numbness and Denies tingling Integumentary/Breasts Skin/Breast: Denies rash Neurologic Neurologic: Denies headache(s), Denies numbness, Denies tingling and Denies weakness Endocrine Endocrine: Denies fatigue Hematologic/Lymphatic Hematologic/Lymphatic: Denies easy bleeding and Denies easy bruising PFSH All Active Problems Seizure (Acute) Esophagitis (Acute 03/08/16) 03/08/16 COUNTS INCLUDE 234 BEDS AT THE [facility]~GRADE 2 Constipation, chronic (Acute 02/11/15) -2015 : gastroscopy: oesophagitis and gastritis- Omeprazole x 8 weeks and taper/no nsaids 01-17/colono. 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/14) Cerebral palsy (Acute) right hemiparesis Gastritis (Acute) GERD (gastroesophageal reflux disease) (Chronic) Nephrolithiasis (Chronic) [place]ute[place] [facility] [id number] Nonintractable headache (Acute 08/13/15) Depressive disorder (Acute 05/08/07) Anxiety (Acute 04/28/13) Medical History Anxiety Depression Porencephalic cyst, congenital Left Surgical History Breast, Cyst Aspiration (11/22/04) CLAVICLE FX (06/05/06) LEFT Colonoscopy - MAC (~02/26/19) 10/20/08 Ligation of fallopian tube RIB FX (06/27/07) 10TH RIGHT RIB S/P hysterectomy with oophorectomy Family History Mother , AGE 65 Substance abuse Diabetes Heart disease Father Heart disease Alcohol abuse Stroke Sister Diabetes Depression Sister Alcohol abuse Daughter No problems noted. Daughter Asthma Social History Smoking/Tobacco Use Status: Never Smoking risk assessment performed?: Yes Alcohol Intake: former Drug use: Never Substance use type: does not use Housing: assisted living facility Number of Children: 2 Pets and animals: Yes Pets and animals: dog(s) What is your relationship status?: Panel score (0-1 are the most socially isolated patients): 0 Duration: 30-45 minutes/day Frequency: 3-4 times per week Cherelle/Jew: None Special cherelle needs: No Do you feel safe at home: Yes Additional Social history: Moved with caregiver Tiki in Fall 2018 (sister Cristal was too old to be caring for her but I believe is still her guardian). WIL Juarez. Exam Const General: cooperative, healthy appearing, comfortable and no acute distress Orientation: alert, awake and oriented x3 HENMT Head: normal to inspection, normocephalic and atraumatic Face and sinus: normal facial exam Mouth: moist mucous membranes Eyes General: appearance normal, both eyes and all related structures Conjunctivae: conjunctivae normal Neck Neck: normal visual inspection, full ROM, no meningeal signs, trachea midline, supple and nontender Resp Effort & Inspection: normal respiratory effort and able to speak in complete sentences Auscultation: clear to auscultation bilaterally Cardio Rate: regular rate Rhythm: regular rhythm GI Inspection: normal to inspection Palpation: soft and nontender Back/Spine/Pelvis Back: No back tenderness Skin General skin exam: no rashes or lesions noted Neuro General: patient alert, patient awake, patient oriented x3, moves all extremities and no focal motor deficits Cognition: normal cognition Speech: speech normal Gait: other (Patient with mild right ankle contractures, ambulates at baseline now) Motor: no fasciculations Sensory Exam: no sensory deficits noted Extrem General: capillary refill normal Other: Baseline right wrist-hand, right ankle contracture otherwise unremarkable. Psych Appearance: grossly normal Mental Status: mental status grossly normal Course Vital Signs Vital signs: Vital Signs Temperature 36.7 C 08/20/21 11:02 Pulse 88 08/20/21 11:02 Respiratory Rate 16 08/20/21 11:02 Blood Pressure 112/73 08/20/21 11:02 Pulse Oximetry 96 08/20/21 11:02 Temperature 36.7 C 08/20/21 11:02 Temperature Source Skin 08/20/21 11:02 Pulse 79 08/20/21 12:30 Pulse 76 08/20/21 12:31 Respiratory Rate 17 08/20/21 12:31 Respiratory Effort 08/20/21 12:08 Respiratory Depth Normal 08/20/21 12:08 Respiratory Pattern Normal 08/20/21 12:08 Blood Pressure 111/76 08/20/21 12:30 Blood Pressure Mean 84 08/20/21 12:30 Blood Pressure Position Supine 08/20/21 11:02 Pulse Oximetry 96 08/20/21 12:31 Oxygen Delivery Method Room Air 08/20/21 11:02 Oxygen Flow Rate 0 08/20/21 11:02 Lab/Test Results Lab/Test Results: Laboratory Tests Range/Units 08/20/21 08/20/21 08/20/21 11:05 11:05 11:40 WBC (4.4-10.8) 10^3/uL 4.67 RBC (3.93-5.22) 10^6/uL 4.74 Hgb (11.2-15.7) g/dL 13.7 Hct (36.0-46.0) % 42.6 MCV (80-95) fL 89.9 MCH (27.0-33.0) pg 28.9 MCHC (32.0-36.0) % 32.2 RDW (11.7-14.6) % 12.5 Plt Count (130-400) 10^3/uL 269 MPV (8.0-11.0) fL 9.4 Immature Gran % 0.2 Neutrophils % 61.3 Lymphocytes % 27.8 Monocytes % 6.0 Eosinophils % 3.0 Basophils % 1.7 Nucleated RBC % % 0 Absolute Neutrophils (1.2-6.7) 10^3/uL 2.86 Absolute Lymphocytes (1.2-3.4) 10^3/uL 1.30 Absolute Monocytes (0.1-0.8) 10^3/uL 0.28 Absolute Eosinophils (0.0-0.7) 10^3/uL 0.14 Absolute Basophils (0.0-0.2) 10^3/uL 0.08 PT (9.3-11.0) sec 10.7 INR (0.9-1.1) 1.1 APTT (21.0-27.5) sec 22.7 Sodium Cancelled Potassium Cancelled Chloride Cancelled Carbon Dioxide Cancelled Anion Gap Cancelled BUN Cancelled Creatinine Cancelled Estimated GFR/1.73 m2 Cancelled Glucose Cancelled Calcium Cancelled Magnesium Cancelled Total Bilirubin Cancelled AST Cancelled ALT Cancelled Alkaline Phosphatase Cancelled Total Protein Cancelled Albumin Cancelled Lipase Cancelled TSH Cancelled Urine Color (Yellow) Urine Clarity (Clear) Urine pH (5-8) Ur Specific [place] (1.005-1.025) Urine Protein (Negative) mg/dL Urine Ketones (Negative) mg/dL Urine Blood (Negative) Urine Nitrite (Negative) Urine Bilirubin (Negative) Urine Urobilinogen (Up TO 0.2) EU/dL Ur Leukocyte Esterase (Negative) Urine RBC (0-2) HPF Urine WBC (0-5) HPF Ur Epithelial Cells (Negative) HPF Urine Crystals (Negative) HPF Urine Bacteria (Negative) HPF Urine Casts (Negative) LPF Urine Mucus (Negative) Ur Culture Indicated? Urine Glucose (Negative) mg/dL Urine Opiates Screen (Negative) Urine Methadone Screen (Negative) Ur Barbiturates Screen (Negative) Ur Tricyclics Screen (Negative) Ur Amphetamines Screen (Negative) U Benzodiazepines Scrn (Negative) Urine Cocaine Screen (Negative) Ur THC Screen (Negative) Ethyl Alcohol Cancelled Range/Units 08/20/21 08/20/21 08/20/21 11:58 12:30 12:30 WBC (4.4-10.8) 10^3/uL RBC (3.93-5.22) 10^6/uL Hgb (11.2-15.7) g/dL Hct (36.0-46.0) % MCV (80-95) fL MCH (27.0-33.0) pg MCHC (32.0-36.0) % RDW (11.7-14.6) % Plt Count (130-400) 10^3/uL MPV (8.0-11.0) fL Immature Gran % Neutrophils % Lymphocytes % Monocytes % Eosinophils % Basophils % Nucleated RBC % % Absolute Neutrophils (1.2-6.7) 10^3/uL Absolute Lymphocytes (1.2-3.4) 10^3/uL Absolute Monocytes (0.1-0.8) 10^3/uL Absolute Eosinophils (0.0-0.7) 10^3/uL Absolute Basophils (0.0-0.2) 10^3/uL PT (9.3-11.0) sec INR (0.9-1.1) APTT (21.0-27.5) sec Sodium 143 Potassium 4.3 Chloride 106 Carbon Dioxide 27.9 Anion Gap 9.1 BUN 14 Creatinine 1.3 H Estimated GFR/1.73 m2 41.37 Glucose 95 Calcium 9.7 Magnesium 2.5 H Total Bilirubin 0.5 AST 22 ALT 26 Alkaline Phosphatase 58 Total Protein 7.8 Albumin 4.1 Lipase 122 TSH 1.82 Urine Color (Yellow) Yellow Urine Clarity (Clear) Clear Urine pH (5-8) 7.0 Ur Specific [place] (1.005-1.025) >= 1.030 H Urine Protein (Negative) mg/dL Trace H Urine Ketones (Negative) mg/dL Negative Urine Blood (Negative) Negative Urine Nitrite (Negative) Negative Urine Bilirubin (Negative) Negative Urine Urobilinogen (Up TO 0.2) EU/dL 0.2 Ur Leukocyte Esterase (Negative) Negative Urine RBC (0-2) HPF Negative Urine WBC (0-5) HPF Negative Ur Epithelial Cells (Negative) HPF Few Urine Crystals (Negative) HPF Negative Urine Bacteria (Negative) HPF Negative Urine Casts (Negative) LPF 0-2 Hyaline Urine Mucus (Negative) Negative Ur Culture Indicated? No Urine Glucose (Negative) mg/dL Negative Urine Opiates Screen (Negative) Negative Urine Methadone Screen (Negative) Negative Ur Barbiturates Screen (Negative) Negative Ur Tricyclics Screen (Negative) Negative Ur Amphetamines Screen (Negative) Negative U Benzodiazepines Scrn (Negative) Positive A Urine Cocaine Screen (Negative) Negative Ur THC Screen (Negative) Negative Ethyl Alcohol < 3.0 Critical Care Time Critical Care Time Critical Care Time: Yes Total Critical Care Time: 35 Attestation: Upon my evaluation, this patient had a high probability of clinically significant, life-threatening deterioration due to their current medical conditions, which required my direct attention, intervention, and personal management. I have personally provided greater than 30 minutes of critical care time exclusive of the time spend on separately billable procedures. Time includes obtaining a history, examining the patient, pulse oximetry, review of laboratory data, radiology results, discussion with consultants, arranging urgent treatment with development of a management plan, evaluation of patient's response to treatment, and monitoring for potential decompensation. Interventions were performed as documented above.
[2021-08-20] MEDS: lamoTRIgine 100 MG TAB PO (13:55)
[2021-08-21 17:59] LABS: Lamotrigine 7.7 mcg/mL (2.5 - 15.0)
== END 2021-08-20 14:23 | disposition home or self-care (01) ==
PROVIDERS: Emergency Provider Physician Assistant; PCP Family Medicine
DX: G40.909 Epilepsy, unspecified, not intractable, without status epilepticus (principal); Z79.899 Other long term (current) drug therapy; R40.2412 Glasgow coma scale score 13-15, at arrival to emergency department
CPT/HCPCS: 36415; 51701; 80053; 80175; 80307; 83690; 93005; 96361; 96374; 96375; 99284; 70450; 80320; 81003; 81015; 83735; 84443; 85025; 85610; 85730; 93010; J2250; J3360

== ENCOUNTER 2021-08-20 23:49 | Observation (INO) | payer MEDICARE, MEDICAID, SELFPAY ==
[2021-08-20 23:53] VITALS: BP 107/72; PULSE 87; RESP 18; TEMP 36.6; O2SAT 100
[2021-08-21] VITALS (108 sets, daily range): BP systolic 89–118; BP diastolic 54–79; PULSE 8–101; RESP 9–40; TEMP 36.3–37.3; O2SAT 18–100
[2021-08-21] MEDS: Midazolam 5 MG/5 ML VIAL (00:22)
[2021-08-21] MEDS: levETIRAcetam 2,000 MG in Normal Saline 100 ML 400 MG IVPB (00:22)
--- NOTE | 2021-08-21 00:25 | ED.GENADUL_ITS ---
Discharge Plan Disposition Patient Disposition: [facility] INPATIENT Condition: Stable Discharge Details Chief Complaint: Seizure Clinical Impression: Seizure Primary Care Provider: Rhianna Garrett ED Provider: Oliver Shukla Home Meds and New Rx's Prescriptions: No Action lamotrigine 100 mg tablet 100 mg PO BID Qty: 180 3RF Rx Instructions: with 25mg tabs magnesium hydroxide 400 mg (170 mg magnesium) tablet,chewable 400 mg PO DAILY 0RF polyethylene glycol 3350 [Miralax] 17 gram/dose powder 17 g PO DAILY PRN (Reason: constipation) Qty: 850 5RF Rx Instructions: twice a day for 2 days, then once a day. 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 In late June/early July the patient was titrated from zonisamide to lamotrigine, and had been relatively stable up until today. Today she had 1-2 seizures at her senior care. She came to the emergency department and had an additional seizure while in CAT scan. Her work-up at that time was negative. Dr. Cruz was contacted, it is recommended that she increase her lamotrigine dose to 200 mg at night. When the patient got home at 9 PM she took her 200 mg lamotrigine dose, and had no problems until midnight when she had a repeat seizure. EMS gave 5 mg of Versed and this resolved the seizure at that time. During that episode the patient was able to slightly converse, and had tonic-clonic movements of all 4 extremities. It appears that this is her normal presentation for this type of seizure. Patient denies any other medication changes. She denies any headache or chest pain or shortness of breath or fever or chills or neck pain. No other complaints at this time. No other modifying factors. Physical exam demonstrates a stable patient, no focal neurologic deficits that appear to be new compared to baseline. With a repeat seizure in spite of the increase lamotrigine dose I do feel that prolonged observation would be better than repeat discharge at this time. Review of the patient's CAT scan, laboratory work-up demonstrates no evidence of significant abnormality or acute findings. We will give 2 g of Keppra, monitor closely, and admit for further observation. I discussed the case with Dr. Bangura, he agrees with the assessment and plan. I will place bridging orders on his behalf. Patient will be admitted as MedSurg overflow to the ICU. Of note just prior to the Keppra being administered the patient did have 1 repeat seizures here. She had a spasm and undulating tonic-clonic movement of her legs. She was able to communicate during the episode. 5 mg of Versed were given in this stated the seizure within 1 minute. Repeat assessment after cessation of seizure and Versed administration demonstrates no significant focal neurologic deficit. Patient is somewhat sleepy. She had no urinary incontinence. She feels well otherwise. Patient stable for admission to the ICU. I have extensively reviewed the treatment plan with the patient. I have addressed all patient concerns at this time. I have also discussed the plan with the admitting physician and they agree with the current assessment and plan and have agreed to assume responsibility for the patient. All parties demonstrate verbal understanding and agreement with our assessment and plan at this time. The documentation in this chart was dictated using [employer] dictation software. Please excuse any dictation errors. HPI General Date/Time Provider Initiated Documentation: 08/21/21 00:03 . 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 In late June/early July the patient was titrated from zonisamide to lamotrigine, and had been relatively stable up until today. Today she had 1-2 seizures at her senior care. She came to the emergency department and had an additional seizure while in CAT scan. Her work-up at that time was negative. Dr. Cruz was contacted, it is recommended that she increase her lamotrigine dose to 200 mg at night. When the patient got home at 9 PM she took her 200 mg lamotrigine dose, and had no problems until midnight when she had a repeat seizure. EMS gave 5 mg of Versed and this resolved the seizure at that time. During that episode the patient was able to slightly converse, and had tonic-clonic movements of all 4 extremities. It appears that this is her normal presentation for this type of seizure. Patient denies any other medication changes. She denies any headache or chest pain or shortness of breath or fever or chills or neck pain. No other complaints at this time. No other modifying factors. Related Data Home Medications Medication Instructions Recorded Confirmed calcium citrate 315 mg 1 ea PO BID #90 tab-cap 02/20/14 08/21/21 calcium-vitamin D3 6.25 mcg (250 unit) tablet (Calcitrate) magnesium hydroxide 400 mg (170 mg 400 mg PO DAILY tab 01/21/19 08/21/21 magnesium) chewable tablet paroxetine HCl 30 mg tablet (Paxil) 60 mg PO DAILY #180 tab-cap 12/15/20 08/21/21 polyethylene glycol 3350 17 17 g PO DAILY PRN #850 g 12/15/20 08/21/21 gram/dose oral powder (Miralax) omeprazole 20 mg capsule,delayed 20 mg PO DAILY #90 cap 06/23/21 08/21/21 release lamotrigine 100 mg tablet 100 mg PO BID #180 tab 06/30/21 08/21/21 folic acid 1 mg tablet 1 mg PO DAILY #90 tab-cap 08/18/21 08/21/21 Previous Rx's Medication Instructions Recorded paroxetine HCl 30 mg tablet (Paxil) 60 mg PO DAILY #180 tab-cap 12/15/20 polyethylene glycol 3350 17 17 g PO DAILY PRN #850 g 12/15/20 gram/dose oral powder (Miralax) omeprazole 20 mg capsule,delayed 20 mg PO DAILY #90 cap 06/23/21 release lamotrigine 100 mg tablet 100 mg PO BID #180 tab 06/30/21 folic acid 1 mg tablet 1 mg PO DAILY #90 tab-cap 08/18/21 Allergies Allergy/AdvReac Type Severity Reaction Status Date / Time rizatriptan benzoate Allergy Unknown Verified 08/21/21 00:02 [From [facility]] Silk Tape AdvReac Unknown Skin Rash Uncoded 08/21/21 00:02 General Stated Complaint: Seizure CORY: 3 Review of Systems All systems reviewed & are unremarkable except as noted in HPI and below PFSH All Active Problems (Updated 08/21/21 @ 00:48 by Oliver Shukla DO) Seizure (Acute) Esophagitis (Acute 03/08/16) 03/08/16 [facility]~GRADE 2 Constipation, chronic (Acute 02/11/15) -2015 : gastroscopy: oesophagitis and gastritis- Omeprazole x 8 weeks and taper/no nsaids 01-17/colono. 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 [id number][place]ign [place] Nonintractable headache (Acute 08/13/15) Depressive disorder (Acute 05/08/07) Anxiety (Acute 04/28/13) Medical History Anxiety Depression Porencephalic cyst, congenital Left Surgical History Breast, Cyst Aspiration (11/22/04) CLAVICLE FX (06/05/06) LEFT Colonoscopy - MAC (~02/26/19) 10/20/08 Ligation of fallopian tube RIB FX (06/27/07) 10TH RIGHT RIB S/P hysterectomy with oophorectomy Family History Mother , AGE 65 Substance abuse Diabetes Heart disease Father Heart disease Alcohol abuse Stroke Sister Diabetes Depression Sister Alcohol abuse Daughter No problems noted. Daughter Asthma Social History Smoking/Tobacco Use Status: Never Smoking risk assessment performed?: Yes Alcohol Intake: former Drug use: Never Substance use type: does not use Housing: assisted living facility Number of Children: 2 Pets and animals: Yes Pets and animals: dog(s) What is your relationship status?: Panel score (0-1 are the most socially isolated patients): 0 Duration: 30-45 minutes/day Frequency: 3-4 times per week Cherelle/Adventism: None Special cherelle needs: No Do you feel safe at home: Yes Additional Social history: Moved with caregiver Tiki in Fall 2018 (sister Cristal was too old to be caring for her but I believe is still her guardian). CM Ann. Exam Narrative Exam Narrative: 1.Const: Well-nourished, Well-developed, appearing stated age 2.Eyes: PERRL, no conjunctival injection, and symmetrical lids. 3.ENT: Atraumatic external nose and ears. Moist MM. Neck: Symmetric, trachea midline, No thyromegaly. No nuchal rigidity. 4.CVS: +S1/S2, No murmurs or gallops. Peripheral pulses 2+ and equal in all extremities. Brisk capillary refill in all extremities. 5.RESP: Unlabored respiratory effort. Clear to auscultation bilaterally. No wheezes rales or rhonchi 6.GI: Soft, Nontender/Nondistended, No hepatosplenomegaly. No guarding or rebound. 7.MSK: Normocephalic/Atraumatic, Extremities w/o deformity or ttp No cyanosis or clubbing, patient is able to move all 4 extremities, she has some chronic contractures of the right hand. Right upper and lower extremities slightly weaker than the left which patient states is her baseline. 8.Skin: Warm, Dry. No rashes or lesions. 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 Sensation grossly intact, no focal neurologic deficits compared to baseline 10.Psych: (AAO) x3. Appropriate mood and affect Course Vital Signs Vital signs: Vital Signs Temperature 36.6 C 08/20/21 23:53 Pulse 87 08/20/21 23:53 Respiratory Rate 18 08/20/21 23:53 Blood Pressure 107/72 08/20/21 23:53 Pulse Oximetry 100 08/20/21 23:53 Temperature 36.6 C 08/20/21 23:53 Temperature Source Skin 08/20/21 23:53 Pulse 87 08/20/21 23:53 Respiratory Rate 18 08/20/21 23:53 Respiratory Effort 08/20/21 23:59 Respiratory Depth Normal 08/20/21 23:59 Respiratory Pattern Normal 08/20/21 23:59 Blood Pressure 107/72 08/20/21 23:53 Blood Pressure Position Supine 08/20/21 23:53 Pulse Oximetry 100 08/20/21 23:53 Oxygen Delivery Method Room Air 08/20/21 23:53 Oxygen Flow Rate 0 08/20/21 23:53 Pain Level 9 08/20/21 23:53
[2021-08-21 00:34] LABS: Abs Immature Grans 0.02 10^3/uL (0.0-0.06); Absolute Basophil Count 0.08 10^3/uL (0.0-0.2); Absolute Eosinophil Count 0.23 10^3/uL (0.0-0.7); Absolute Monocyte Count 0.47 10^3/uL (0.1-0.8); Absolute Neutrophil Count 3.51 10^3/uL (1.2-6.7); Basophils % 1.3; Eosinophils % 3.6; HCT 39.1 % (36.0-46.0); HGB 12.3 g/dL (11.2-15.7); Immature Grans % 0.3; Lymphocytes % 31.7; MCH 28.7 pg (27.0-33.0); MCHC 31.5 % (32.0-36.0); MCV 91.4 fL (80-95); MPV 9.4 fL (8.0-11.0); Monocytes % 7.4; Neutrophils % 55.7; Nucleated RBC 0 %; Platelet Count 250 10^3/uL (130-400); RBC 4.28 10^6/uL (3.93-5.22); RDW 12.7 % (11.7-14.6); RDW-SD 42.7 fL; WBC 6.31 10^3/uL (4.4-10.8)
[2021-08-21 01:05] LABS: ALT 27 U/L (14-59); AST 51 U/L (15-37); Albumin 3.3 g/dL (3.4-5.0); Alkaline Phosphatase 47 U/L (46-116); Anion Gap 6.7 mmol/L (3-11); BUN 12 mg/dL (7-18); Bilirubin, Total 0.3 mg/dL (0.2-1.0); CO2 26.3 mmol/L (21.0-32.0); CREATININE 1.1 mg/dL (0.55-1.02); Calcium 8.4 mg/dL (8.5-10.1); Chloride 110 mmol/L (98-107); Estimated GFR 50.17 (mL/min/1.73m2); Glucose 91 mg/dL (74-106); Potassium 3.6 mmol/L (3.5-5.1); Sodium 143 mmol/L (136-145); Total Protein 6.3 g/dL (6.4-8.2)
[2021-08-21 02:05] LABS: Source Nasal/Nares
[2021-08-21 02:43] LABS: COVID-19 PCR Negative (Negative)
--- NOTE | 2021-08-21 06:53 | NUR.NOTE ---
Nursing Note: MD informed at 214 that Pt. was on the unit and there were limited orders with no PRN meds in case of a seizure. No MD visit for the rest of my shift. Days were informed of this.
--- NOTE | 2021-08-21 08:20 | PDOC.CMIN ---
- If Service Date Differs Date of service: 08/21/21 Time of Service: 08:20 Care Management Initial Assess REASON FOR HOSPITALIZATION:: Seizure PAST MEDICAL HISTORY/PAST SURGICAL HISTORY:: All Active Problems (Updated 08/21/21 @ 00:48 by Oliver Shukla DO). Seizure (Acute). Esophagitis (Acute 03/08/16). 03/08/16 [facility]~GRADE 2. Constipation, chronic (Acute 02/11/15). : gastroscopy: oesophagitis and gastritis- Omeprazole x 8 weeks and taper/no nsaids. 01-17/colono. normal 2009/chronic laxatives. 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 Cerebral palsy (Acute). right hemiparesis. Gastritis (Acute). GERD (gastroesophageal reflux disease) (Chronic). Nephrolithiasis (Chronic). Ovarian mass (Acute). [facility] [place] [id number]-benign mass. Nonintractable headache (Acute 08/13/15). Depressive disorder (Acute 05/08/07). Anxiety (Acute 04/28/13). Medical History . Anxiety. Depression. Porencephalic cyst, congenital. Left. Surgical History . Breast, Cyst Aspiration (11/22/04). CLAVICLE FX (06/05/06). LEFT. Colonoscopy - MAC (~02/26/19). 10/20/08. Ligation of fallopian tube. RIB FX (06/27/07). 10TH RIGHT RIB. S/P hysterectomy with oophorectomy PREVIOUS FUNCTIONAL STATUS/SOCIAL/FAMILY SUPPORTS:: Navya is and has lived in [facility] with her caregiver's Tiki and Dennis Wade since the Fall 2018. Her guardian is Abi Cook and her sister Donna is her HCA. Navya shares that she enjoys music and dancing in her spare time. CURRENT FUNCTIONAL STATUS:: Navya was alert, oriented, pleasant and easy to engage in conversation. She was happily listening to a music tablet when CM met with her and discussed her love of music and dancing with CM. Navya has many favorite bands and singers, one of her favorites being Ramón. Navya had some questions for her sister Azul and CM helped her connect with Donna using her room phone. Navya is content with staying the night for additional monitoring and medication management. Sesar provided updates to both her caregiver and guardian this morning. ADVANCE DIRECTIVES:: On file at [facility], HCA is Donna Fazal (sister), Alt. agent is Abi Cornelius (Guardian). Has patient been provided with info about the portal/API?: Yes Did the patient sign up for the portal?: Yes (Prior to admission) CODE STATUS:: Full Code INSURANCE COVERAGE / FINANCIAL ISSUES:: Medicaid. Medicare CURRENT HOME/COMMUNITY SERVICES/EQUIPMENT:: Roxana Wade (Home providers): . Abi Cook(Guardian): . Donna Diehl (sister/HCA): . Joseline Piedra (Cryptographic Machine Operator @ [facility] Support Services): . PRIMARY CARE PHYSICIAN:: Rhianna Garrett POTENTIAL DISCHARGE NEEDS:: Follow up with Neurology and PCP. Discharge summary faxed to community providers, including [facility]. PATIENT/FAMILY EDUCATION NEEDS:: Review discharge instructions, limitations, medications and plan to follow up with community providers. ask me three. TRANSPORTATION:: via private vehicle with home provider or alternate support person identified by Navya's guardian. PLAN:: Anticipate Navya will discharge home via private vehicle when medically ready. New [facility] RN/PT/OT/ST, if indicated. She will follow up with her community providers and discharge plan of care as prescribed. CM will continue to support discharge planning needs.
--- NOTE | 2021-08-21 08:44 | HPE_ITS ---
Assessment and Plan Assessment and plan (1) Seizure: Status: Acute Assessment and plan: She started on lamotrigine in May of last year. She is currently taking 100 mg twice a day. I have discussed the situation with Dr. Moreno. We will keep her lamotrigine at 100 mg bid and continue the keppra. We should try to get an EEG but not sure if we can get it today since it is Monday. These spells that she is having may not be epileptic seizures. History of Present Illness History of Present Illness Chief Complaint: seizure Narrative: This 61-year-old female is here because of seizure. She has a long history of seizures and history of cerebral palsy and has a large cyst of her left hemisphere that has been fairly functional at home. She lives with a caregiver. She was switched from zonisamide to lamotrigine last May. She says she takes her medicines as directed. She came in with new seizures. She was treated emergency department with Keppra although that the past had caused agitation and sedation. She was on phenytoin for many years in addition to having primidone and phenobarbital in the past also. I reviewed Dr. Cruz's notes regarding her treatment. She has been immunized to Covid. She was but her ex- . She denies any tobacco or alcohol. Review of Systems Constitutional Constitutional: Denies chills, Denies fever(s) and Denies malaise Cardiovascular Cardiovascular: Denies chest pain, Denies radiating jaw, neck or arm pain and Denies palpitations Respiratory Respiratory: Denies cough Gastrointestinal Gastrointestinal: Denies constipation, Denies diarrhea, Denies nausea and Denies vomiting Genitourinary Genitourinary: Denies urinary frequency and Denies difficulty voiding Musculoskeletal Musculoskeletal: Denies abnormal gait and Denies numbness Neurologic Neurologic: Denies abnormal gait, Reports localized weakness, Denies numbness and Reports convulsions Endocrine Endocrine: Denies palpitations PFSH All Active Problems (Updated 08/21/21 @ 00:48 by Oliver Shukla DO) Seizure (Acute) Esophagitis (Acute 03/08/16) 03/08/16 [facility]~GRADE 2 Constipation, chronic (Acute 02/11/15) -2015 : gastroscopy: oesophagitis and gastritis- Omeprazole x 8 weeks and taper/no nsaids 01-17/colono. 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/14) Cerebral palsy (Acute) right hemiparesis Gastritis (Acute) GERD (gastroesophageal reflux disease) (Chronic) Nephrolithiasis (Chronic) Ovarian mass (Acute) [facility] [place] [id number]-benign mass Nonintractable headache (Acute 08/13/15) Depressive disorder (Acute 05/08/07) Anxiety (Acute 04/28/13) Medical History Anxiety Depression Porencephalic cyst, congenital Left Surgical History Breast, Cyst Aspiration (11/22/04) CLAVICLE FX (06/05/06) LEFT Colonoscopy - MAC (~02/26/19) 10/20/08 Ligation of fallopian tube RIB FX (06/27/07) 10TH RIGHT RIB S/P hysterectomy with oophorectomy Family History Mother , AGE 65 Substance abuse Diabetes Heart disease Father Heart disease Alcohol abuse Stroke Sister Diabetes Depression Sister Alcohol abuse Daughter No problems noted. Daughter Asthma Social History Smoking/Tobacco Use Status: Never Smoking risk assessment performed?: Yes Alcohol Intake: former Drug use: Never Substance use type: does not use Housing: assisted living facility Number of Children: 2 Pets and animals: Yes Pets and animals: dog(s) What is your relationship status?: Panel score (0-1 are the most socially isolated patients): 0 Duration: 30-45 minutes/day Frequency: 3-4 times per week Cherelle/Religious: None Special cherelle needs: No Do you feel safe at home: Yes Additional Social history: Moved with caregiver Tiki in Fall 2018 (sister Cristal was too old to be caring for her but I believe is still her guardian). WIL Juarez. Meds Allergies and Home Medications Allergies Allergy/AdvReac Type Severity Reaction Status Date / Time rizatriptan benzoate Allergy Unknown Verified 08/21/21 00:02 [From [facility]] Silk Tape AdvReac Unknown Skin Rash Uncoded 08/21/21 00:02 Home Medications Medication Instructions Recorded Confirmed Type calcium citrate 315 mg 1 ea PO BID #90 tab-cap 02/20/14 08/21/21 History calcium-vitamin D3 6.25 mcg (250 unit) tablet (Calcitrate) magnesium hydroxide 400 mg (170 mg 400 mg PO DAILY tab 01/21/19 08/21/21 History magnesium) chewable tablet paroxetine HCl 30 mg tablet (Paxil) 60 mg PO DAILY #180 tab-cap 12/15/20 08/21/21 Rx polyethylene glycol 3350 17 17 g PO DAILY PRN #850 g 12/15/20 08/21/21 Rx gram/dose oral powder (Miralax) omeprazole 20 mg capsule,delayed 20 mg PO DAILY #90 cap 06/23/21 08/21/21 Rx release lamotrigine 100 mg tablet 100 mg PO BID #180 tab 06/30/21 08/21/21 Rx folic acid 1 mg tablet 1 mg PO DAILY #90 tab-cap 08/18/21 08/21/21 Rx Exam Const General: cooperative and no acute distress Nutritional Appearance: average body habitus Eyes General: appearance normal, both eyes and all related structures Neck Neck: normal visual inspection and no lymphadenopathy Resp Auscultation: clear to auscultation bilaterally, no rales and no wheezes Cardio Rate: regular rate Rhythm: regular rhythm Heart Sounds: S1 normal, S2 normal, no gallops and no murmurs GI Palpation: soft, no hepatosplenomegaly, not firm and nontender Neuro General: patient alert, patient awake and patient oriented x3 Cognition: normal cognition Speech: speech normal Other: She can raise both arms but the right arm that is weak compared to the left. She has a normal squeeze stars coordinator strength on the left at 4 on the right. She can elevate both legs against gravity without difficulty. She has intact sensation over both legs. There is no hyperreflexia. Extrem General: normal to inspection, no cyanosis and no edema Results Labs Result diagrams: 08/21/21 00:14 08/21/21 00:45 Labs: Laboratory Results - last 24 hr 08/21/21 08/21/21 08/21/21 00:14 00:45 00:55 WBC 6.31 D RBC 4.28 Hgb 12.3 Hct 39.1 MCV 91.4 MCH 28.7 MCHC 31.5 L RDW 12.7 Plt Count 250 MPV 9.4 Immature Gran % 0.3 Neutrophils % 55.7 Lymphocytes % 31.7 Monocytes % 7.4 Eosinophils % 3.6 Basophils % 1.3 Nucleated RBC % 0 Absolute Neutrophils 3.51 Absolute Lymphocytes 2.00 Absolute Monocytes 0.47 Absolute Eosinophils 0.23 Absolute Basophils 0.08 Sodium 143 Potassium 3.6 Chloride 110 H Carbon Dioxide 26.3 Anion Gap 6.7 BUN 12 Creatinine 1.1 H Estimated GFR/1.73 m2 50.17 Glucose 91 Calcium 8.4 L Total Bilirubin 0.3 AST 51 H ALT 27 Alkaline Phosphatase 47 Total Protein 6.3 L Albumin 3.3 L COVID-19 Source Nasal/Nares SARS-CoV-2 (PCR) Negative Last Vital Signs Temp 36.3 C L 08/21/21 07:15 Pulse 63 08/21/21 07:15 Resp 15 08/21/21 07:15 BP 96/57 L 08/21/21 07:15 Pulse Ox 97 08/21/21 07:15
[2021-08-21] MEDS: lamoTRIgine 100 MG TAB PO ×2 (10:53→19:30)
[2021-08-21] MEDS: Polyethylene Glycol 3350 17 GM PACKET PO (11:25)
--- NOTE | 2021-08-21 11:29 | NUR.NOTE ---
RN speaks to Respiratory therapist about setting up an EEG, but respiratory therapist tells RN that same is not possible to be set up until Monday. Nursing Note:
--- NOTE | 2021-08-21 11:34 | NUR.NOTE ---
No evidene of seizures. Patient alert and feeling better.Nursing Note:
--- NOTE | 2021-08-21 11:59 | W.PM.PROGNOT ---
Date of Service Date of service: 08/21/21 Time of Service: 11:59 Assessment and Plan Assessment and plan (1) Seizure: Status: Acute Assessment and plan: Continue current AEDs including Lamictal 100 mg twice daily and Keppra 500 mg twice daily. Plan for EEG and neurology follow-up next week. If no further seizures while hospitalized then will discharge her home to her caregiver tomorrow. (2) Partial epilepsy: Status: Acute Exam Narrative Exam Narrative: Patient is alert sitting up in her bed listening to music able to communicate with me. She requested that I call her caregiver Tiki Gurrola and I also called her I also called her legal guardian Abi Rod and updated her on Navya's condition. I told him that I spoke with Dr. Knox who had spoken with the patient's neurologist Dr. Debra Cruz who recommended not increasing the Lamictal to 3 times a day but keep it at 100 mg twice a day but to continue on the Keppra at 500 mg twice daily. Plan is to get a EEG next week and have the patient follow-up with Dr. Cruz next week. If the patient has further breakthrough seizures while hospitalized today we will reach out to either Dr. Cruz if she is available or to [facility] neurology for further guidance. Objective Last Vital Signs Temp 36.4 C L 08/21/21 11:28 Pulse 72 08/21/21 11:28 Resp 22 08/21/21 11:28 BP 103/59 L 08/21/21 11:28 Pulse Ox 93 08/21/21 11:28 Laboratory Results - last 24 hr 08/21/21 08/21/21 08/21/21 00:14 00:45 00:55 WBC 6.31 D RBC 4.28 Hgb 12.3 Hct 39.1 MCV 91.4 MCH 28.7 MCHC 31.5 L RDW 12.7 Plt Count 250 MPV 9.4 Immature Gran % 0.3 Neutrophils % 55.7 Lymphocytes % 31.7 Monocytes % 7.4 Eosinophils % 3.6 Basophils % 1.3 Nucleated RBC % 0 Absolute Neutrophils 3.51 Absolute Lymphocytes 2.00 Absolute Monocytes 0.47 Absolute Eosinophils 0.23 Absolute Basophils 0.08 Sodium 143 Potassium 3.6 Chloride 110 H Carbon Dioxide 26.3 Anion Gap 6.7 BUN 12 Creatinine 1.1 H Estimated GFR/1.73 m2 50.17 Glucose 91 Calcium 8.4 L Total Bilirubin 0.3 AST 51 H ALT 27 Alkaline Phosphatase 47 Total Protein 6.3 L Albumin 3.3 L COVID-19 Source Nasal/Nares SARS-CoV-2 (PCR) Negative
[2021-08-21] MEDS: Acetaminophen 325 MG TAB PO (13:26)
[2021-08-21] MEDS: Normal Saline Flush 10 ML SYR IVP (13:30)
[2021-08-21] MEDS: diphenhydrAMINE 50 MG/ML VIAL IVP (13:33)
[2021-08-21] MEDS: levETIRAcetam 500 MG TAB PO (19:30)
[2021-08-22 04:18] VITALS: BP 102/58; PULSE 71; RESP 17; TEMP 37.1; O2SAT 94
[2021-08-22] MEDS: Folic Acid 1 MG TAB PO (08:53)
[2021-08-22] MEDS: PARoxetine 20 MG TAB 60 MG PO (08:53)
[2021-08-22] MEDS: levETIRAcetam 500 MG TAB PO (08:53)
[2021-08-22] MEDS: lamoTRIgine 100 MG TAB PO (08:54)
--- NOTE | 2021-08-22 09:18 | DSE_ITS ---
Date of service: 08/22/21 Time of Service: 09:18 DS: Diagnosis Discharge Diagnosis (1) Seizure: Status: Acute (2) Partial epilepsy: Status: Acute Discharge Plan Disposition Patient Disposition: HOME Condition: Improving Discharge Details Reason For Visit: seizure Admit Date/Time: 08/21/21 00:13 Admit Provider: Joe Knox Attending Provider: Joe Knox Primary Care Provider: Rhianna Garrett Hospital Course Hospital Course: This 61-year-old female is here because of seizure.? She has a long history of seizures and history of cerebral palsy and has a large cyst of her left hemisphere that has been fairly functional at home.? She lives with a caregiver.? She was switched from zonisamide to lamotrigine last May.? She says she takes her medicines as directed.? She came in with new seizures.? She was treated emergency department with Keppra although that the past had caused a gitation and sedation.? She was on phenytoin for many years in addition to having primidone and phenobarbital in the past also.? Dr. Knox reviewed Dr. Cruz's notes regarding her treatment.? She has been immunized to Covid.? She was but her ex- .? She denies any tobacco or alcohol Dr. Knox had a phone discussion with Dr. Cruz regarding the patient's seizure medications. It was decided to keep the lamotrigine at 100 mg twice a day and continue the Keppra that was started in the emergency department. Patient was kept on Keppra 500 mg twice a day and lamotrigine 100 mg twice a day. And she had no further seizures. She did have an episode on the morning of her admission in which she had rhythmic bilateral leg movement that had the appearance of akathisia or restless leg syndrome. She was treated with Benadryl and her symptoms resolved. During this episode she had no loss of consciousness and was talking throughout the episode. Overnight from 08/21/2021 to 08/22/2021 patient had no neurologic episodes on the morning of 08/22/2021 she was feeling fine and tolerating the Keppra well. Patient will be discharged home to her caregiver Tiki Georgejeniffer who was updated on the patient's condition. Patient's legal guardian was also updated on the patient's condition and discharge. Patient will have a follow-up EEG next week and should follow-up with her PCP within the next week and with Dr. Cruz within the next 2 weeks. Work-up during this hospitalization included routine labs including CBC CMP, TSH, magnesium, CT scan of the head, urine for drugs of abuse, blood alcohol level. All of her labs are essentially normal with the exception that her urine drug screen did show benzodiazepines however the patient had been treated with lorazepam for her seizure. CT scan of the head was performed without contrast and showed a stable large area of left hemispheric encephalomalacia with no change in appearance compared to prior exam dated February 2017. Home Meds and New Rx's Prescriptions: New levetiracetam [Keppra] 500 mg tablet 500 mg PO Q12H Qty: 60 1RF Continued lamotrigine 100 mg tablet 100 mg PO BID Qty: 180 3RF Rx Instructions: with 25mg tabs magnesium hydroxide 400 mg (170 mg magnesium) tablet,chewable 400 mg PO DAILY 0RF polyethylene glycol 3350 [Miralax] 17 gram/dose powder 17 g PO DAILY PRN (Reason: constipation) Qty: 850 5RF Rx Instructions: twice a day for 2 days, then once a day. paroxetine HCl [Paxil] 30 mg tablet 60 mg PO DAILY Qty: 180 3RF calcium citrate-vitamin D3 [Calcitrate-Vitamin D] 1 EACH tablet 1 ea PO BID Qty: 90 11RF omeprazole 20 mg capsule,delayed release(DR/EC) 20 mg PO DAILY Qty: 90 3RF Rx Instructions: take one capsule at bedtime folic acid 1 mg tablet 1 mg PO DAILY Qty: 90 4RF Discharge Instructions Instructions: Levetiracetam (By mouth), Epilepsy (DC) Referrals: Rhianna Garrett MD [Primary Care Provider] - (call the office for follow up in the next week) Debra Cruz MD [ [facility] STAFF PHYSICIAN] - (call the office on Monday for appointment in the next 2 weeks) Activity:: Activity as Tolerated Equipment/Supplies:: No Equipment Needed Diet:: Normal Diet Discharge Orders Discharge Orders: Discharge Order (Routine); Ordered 08/22/21 Ordered By: Jeffrey Murphy Other Ambulatory Orders: EEG(Regular) (Routine) Timeframe: 1 Week Location: None Selected Ordered By: Jeffrey Murphy DS: Summary Time Spent with Patient providing and/or coordinating discharge services: Less than 30 minutes Specific discharge activities: Exam and interview with the patient. Updating the patient's caregiver, prescribing Keppra Status at Discharge Functional status at discharge: uses cane/walker Overall status at discharge: patient is back to baseline Mental Status: mental status grossly normal Speech and Movement: speech clear and other (Normal strength and movement on the left side limited use of the right arm ) Mood: congruent mood Affect: normal affect Exam Narrative Exam Narrative: Patient is sitting up in bed watching TV she is alert and oriented and eating a popsicle. Per nursing patient slept well and had no further seizures. Patient herself is not noticed any more restless leg movements. Lungs are clear Heart is regular rate and rhythm Right arm and hand are in a chronic contracted flexion however she is able to raise her arm and resist me. 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 Psych Mental Status: mental status grossly normal Speech and Movement: speech clear and other (Normal strength and movement on the left side limited use of the right arm ) Mood: congruent mood Affect: normal affect DS: Data Vitals/I&O Vitals and I&O: Vital Signs Temperature 37.1 C 08/22/21 04:18 Temperature Source Temporal Artery Scan 08/22/21 04:18 Pulse 71 08/22/21 04:18 Pulse Rhythm Regular 08/21/21 20:15 Pulse 71 08/21/21 15:40 Respiratory Rate 17 08/22/21 04:18 Respiratory Effort Non-Labored 08/21/21 20:15 Respiratory Depth Normal 08/21/21 20:15 Respiratory Pattern Normal 08/21/21 20:15 Blood Pressure 102/58 L 08/22/21 04:18 Blood Pressure Mean 72 08/21/21 14:00 Blood Pressure Position Supine 08/20/21 23:53 Pulse Oximetry 94 08/22/21 04:18 Oxygen Delivery Method Room Air 08/22/21 04:18 Oxygen Flow Rate 0 08/22/21 04:18 Pain Level 0 08/22/21 04:18 Comment 08/21/21 06:42 Intake & Output 08/21/21 08/21/21 08/22/21 11:59 23:59 11:59 Intake Total 470 / 920 450 / 920 Output Total 400 / 925 525 / 925 Balance 70 / -5 -75 / -5 Weight 61.3 kg 61.7 kg Intake: IV 120 / 120 Oral 350 / 800 450 / 800 Output: Urine 400 / 925 525 / 925 Other: Urine Color Yellow Straw Urine Appearance Clear Clear Urine Odor None Strong Stool Size Small Small Stool Characteristics Hard Formed Voiding Methods Bedside Commode Bedside Commode [facility] All Active Problems Seizure (Acute) Esophagitis (Acute 03/08/16) 03/08/16 [facility]~GRADE 2 Constipation, chronic (Acute 02/11/15) : gastroscopy: oesophagitis and gastritis- Omeprazole x 8 weeks and taper/no nsaids 01-17/colono. 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/14) Cerebral palsy (Acute) right hemiparesis Gastritis (Acute) GERD (gastroesophageal reflux disease) (Chronic) Nephrolithiasis (Chronic) Ovarian mass (Acute) [facility] [place] [id number]-benign mass Nonintractable headache (Acute 08/13/15) Depressive disorder (Acute 05/08/07) Anxiety (Acute 04/28/13) Medical History Anxiety Depression Porencephalic cyst, congenital Left Surgical History Breast, Cyst Aspiration (11/22/04) CLAVICLE FX (06/05/06) LEFT Colonoscopy - MAC (~02/26/19) 10/20/08 Ligation of fallopian tube RIB FX (06/27/07) 10TH RIGHT RIB S/P hysterectomy with oophorectomy Family History Mother , AGE 65 Substance abuse Diabetes Heart disease Father Heart disease Alcohol abuse Stroke Sister Diabetes Depression Sister Alcohol abuse Daughter No problems noted. Daughter Asthma Social History Smoking/Tobacco Use Status: Never Smoking risk assessment performed?: Yes Alcohol Intake: former Drug use: Never Substance use type: does not use Housing: assisted living facility Number of Children: 2 Pets and animals: Yes Pets and animals: dog(s) What is your relationship status?: Panel score (0-1 are the most socially isolated patients): 0 Duration: 30-45 minutes/day Frequency: 3-4 times per week Cherelle/Mormonism: None Special cherelle needs: No Do you feel safe at home: Yes Additional Social history: Moved with caregiver Tiki in Fall 2018 (sister Cristal was too old to be caring for her but I believe is still her guardian). WIL Juarez.
[2021-08-22 09:41] VITALS: RESP 18; O2SAT 96
[2021-08-22 09:53] VITALS: BP 90/67; RESP 18; O2SAT 96
--- NOTE | 2021-08-22 10:15 | PDOC.CMDIS ---
- If Service Date Differs Date of service: 08/22/21 Time of Service: 10:15 LACE Index Scoring Tool - Questions: Length of Stay (in days): 1 Acuity (Admit via E.D.?): Yes E.D. Visits: 2 - Answers: Total Score: 6 Risk of Readmission: Low Risk Care Management Discharge Reason for Hospitalization: Seizure Discharge Plan: Navya will discharge home via private vehicle with her caregiver. She will have a follow up EEG and PCP appointment next week. Navya will follow up with Dr. Cruz in neurology within 2 weeks. Patient/Family Education Needs: Review discharge instructions, medications, limitations and plan to follow up with community providers. ask me three.
== END 2021-08-22 11:30 | disposition home or self-care (01) ==
LOC: ER 08-21 01:23 → ICU 08-21 01:25
PROVIDERS: Admitting Provider Family Medicine; Emergency Provider Student in an Organized Health Care Education/Training Program; PCP Family Medicine; Visit Provider Family Medicine
DX: G40.109 Localization-related (focal) (partial) symptomatic epilepsy and epileptic syndromes with simple partial seizures, not intractable, without status epilepticus (principal); G80.8 Other cerebral palsy; K21.9 Gastro-esophageal reflux disease without esophagitis; K59.09 Other constipation; F41.9 Anxiety disorder, unspecified; Q04.6 Congenital cerebral cysts; Z79.899 Other long term (current) drug therapy; Z20.822 Contact with and (suspected) exposure to COVID-19
CPT/HCPCS: 36415; 51701; 80053; 80175; 80307; 83690; 87635; 93005; 96361; 96365; 96374; 96375; 99284; 99285; 70450; 80320; 81003; 81015; 83735; 84443; 85025; 85610; 85730; 99217; 99219; G0378; J1200; J1953; J2250; J3360; J3490

== ENCOUNTER 2021-08-27 10:37 | Inpatient (IN) | payer MEDICARE, MEDICAID, SELFPAY ==
[2021-08-27] VITALS (30 sets, daily range): BP systolic 92–117; BP diastolic 57–73; PULSE 60–89; RESP 12–30; TEMP 35.9–36.8; O2SAT 94–99
--- NOTE | 2021-08-27 10:40 | W.ED.GENAD ---
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 Patient describes it as shaking initially in her left leg and then progressed to her entire body. Home provider notes that she has cared for her for the past 2 years and has not seen any previous seizure activity during this timeframe until her zonisamide was stopped by neurology last month. Patient was admitted here last week for seizure activity and started on Keppra in addition to her Lamictal which she states she has been taking regularly. Vitals within normal limits. Patient appears comfortable and nontoxic. She is moving all extremities at her baseline considering her right-sided hemiparesis. She is oriented x 3 and able to answer questions appropriately. She denies any pain. No evidence of trauma on exam. History and presentation does not appear consistent with acute CVA, or a toxic process at this time. Will obtain screening labs and discuss with neurology. She had a CT head last week which was negative so do not feel indication for additional imaging at this time. Dr. Cruz's neurology office closed today. Discussed with [facility] neurology who recommended increasing her Keppra from 500 mg twice daily to 1000 mg twice daily. She took her Keppra and Lamictal this morning. We will give an additional 500 mg dose of Keppra now. Labs reviewed and unremarkable. Called to room by nursing for evaluation of shaking. Patient was awake and alert and noted to have shaking of her bilateral lower extremities. As she is awake and talking, question with this is actual seizure-like cavity. Nursing noted that while patient was using her phone, the shaking in her legs stopped. Total time of shaking her legs approximately 10 minutes. Patient remained awake and alert. Patient states she does not feel comfortable going home as she will be with her respite caregiver this weekend and does not feel comfortable being discharged. Case discussed again with home provider Tiki who states that she would not feel comfortable with patient being discharged home. This was discussed with hospitalist who recommended discussion with [facility] neurology for questionable transfer for EEG or neurology monitoring as neurology unavailable here this weekend. Case discussed again with [facility] neurology Dr. 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 Recommends again to increase her Keppra from 500 mg twice daily to 1000 mg twice daily. Case discussed again with hospitalist who accepts patient for admission. Requesting MRI brain which has been ordered and can be done at 315pm today. Medical Records Medical records reviewed: Yes I reviewed the patient's medical records. Lab Data Lab results reviewed: Yes I reviewed the patient's lab results. Labs: Laboratory Tests Range/Units 08/27/21 08/27/21 08/27/21 10:48 10:48 10:48 WBC (4.4-10.8) 10^3/uL 4.71 RBC (3.93-5.22) 10^6/uL 4.63 Hgb (11.2-15.7) g/dL 13.3 Hct (36.0-46.0) % 42.3 MCV (80-95) fL 91.4 MCH (27.0-33.0) pg 28.7 MCHC (32.0-36.0) % 31.4 L RDW (11.7-14.6) % 12.7 Plt Count (130-400) 10^3/uL 275 MPV (8.0-11.0) fL 9.6 Immature Gran % 0.2 Neutrophils % 62.8 Lymphocytes % 25.7 Monocytes % 4.9 Eosinophils % 4.9 Basophils % 1.5 Nucleated RBC % % 0 Absolute Neutrophils (1.2-6.7) 10^3/uL 2.96 Absolute Lymphocytes (1.2-3.4) 10^3/uL 1.21 Absolute Monocytes (0.1-0.8) 10^3/uL 0.23 Absolute Eosinophils (0.0-0.7) 10^3/uL 0.23 Absolute Basophils (0.0-0.2) 10^3/uL 0.07 Sodium Cancelled Potassium Cancelled Chloride Cancelled Carbon Dioxide Cancelled Anion Gap Cancelled BUN Cancelled Creatinine Cancelled Estimated GFR/1.73 m2 Cancelled Glucose Cancelled Calcium Cancelled Total Bilirubin Cancelled AST Cancelled ALT Cancelled Alkaline Phosphatase Cancelled Total Protein Cancelled Albumin Cancelled Urine Color (Yellow) Urine Clarity (Clear) Urine pH (5-8) Ur Specific [place] (1.005-1.025) Urine Protein (Negative) mg/dL Urine Ketones (Negative) mg/dL Urine Blood (Negative) Urine Nitrite (Negative) Urine Bilirubin (Negative) Urine Urobilinogen (Up TO 0.2) EU/dL Ur Leukocyte Esterase (Negative) Urine Glucose (Negative) mg/dL Lamotrigine Cancelled Levetiracetam Cancelled COVID-19 Source Range/Units 08/27/21 08/27/21 08/27/21 11:06 13:00 15:00 WBC (4.4-10.8) 10^3/uL RBC (3.93-5.22) 10^6/uL Hgb (11.2-15.7) g/dL Hct (36.0-46.0) % MCV (80-95) fL MCH (27.0-33.0) pg MCHC (32.0-36.0) % RDW (11.7-14.6) % Plt Count (130-400) 10^3/uL MPV (8.0-11.0) fL Immature Gran % Neutrophils % Lymphocytes % Monocytes % Eosinophils % Basophils % Nucleated RBC % % Absolute Neutrophils (1.2-6.7) 10^3/uL Absolute Lymphocytes (1.2-3.4) 10^3/uL Absolute Monocytes (0.1-0.8) 10^3/uL Absolute Eosinophils (0.0-0.7) 10^3/uL Absolute Basophils (0.0-0.2) 10^3/uL Sodium 142 Potassium 4.2 Chloride 107 Carbon Dioxide 29.4 Anion Gap 5.6 BUN 9 Creatinine 1.1 H Estimated GFR/1.73 m2 50.17 Glucose 74 Calcium 9.2 Total Bilirubin 0.2 AST 16 ALT 27 Alkaline Phosphatase 52 Total Protein 7.2 Albumin 3.6 Urine Color (Yellow) Yellow Urine Clarity (Clear) Clear Urine pH (5-8) 7.5 Ur Specific [place] (1.005-1.025) 1.020 Urine Protein (Negative) mg/dL Negative Urine Ketones (Negative) mg/dL Negative Urine Blood (Negative) Negative Urine Nitrite (Negative) Negative Urine Bilirubin (Negative) Negative Urine Urobilinogen (Up TO 0.2) EU/dL 0.2 Ur Leukocyte Esterase (Negative) Negative Urine Glucose (Negative) mg/dL Negative Lamotrigine Levetiracetam COVID-19 Source Nasal/Nares HPI General Mode of arrival: EMS. Date/Time Provider Initiated Documentation: 08/27/21 10:42. Limitations to Documentation: no limitations. Information obtained by: patient. 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 Patient states around 815 today she developed left leg shaking. She states she then developed shaking her right leg, both arms and then whole body. States she thinks this lasted approximately 30 minutes. Upon EMS arrival, patient was given 5 mg of Versed and then she feels that the shaking stopped. She states she has had similar episodes occurring recently in the last couple weeks. Case discussed with patient home provider Tiki who notes that patient lives alone in her own apartment within the resident but she checks on her regularly. She states patient called her approximately 815 she states that she was having shaking in her left knee. Tiki stated she did not see any shaking initially but then noted shaking in her left leg which then progressed to her right leg, both arms and then her entire body. She states this lasted approximately 60 minutes and then resolved. Tiki states that patient was awake and alert during this entire episode and denies any LOC, injury, fall, nausea, vomiting or other trauma. She states that patient had been on zonisamide which was stopped recently and that patient guardian Abi would like patient to be placed back on the zonisamide. Tiki states that patient had a similar episode occurring a few days ago but this resolved after taking her seizure medication. Patient denies any recent fever, illness, vomiting, diarrhea. Related Data Home Medications Medication Instructions Recorded Confirmed calcium citrate 315 mg 1 ea PO BID #90 tab-cap 02/20/14 08/27/21 calcium-vitamin D3 6.25 mcg (250 unit) tablet (Calcitrate) magnesium hydroxide 400 mg (170 mg 400 mg PO DAILY tab 01/21/19 08/27/21 magnesium) chewable tablet paroxetine HCl 30 mg tablet (Paxil) 60 mg PO DAILY #180 tab-cap 12/15/20 08/27/21 polyethylene glycol 3350 17 17 g PO DAILY PRN #850 g 12/15/20 08/27/21 gram/dose oral powder (Miralax) omeprazole 20 mg capsule,delayed 20 mg PO DAILY #90 cap 06/23/21 08/27/21 release lamotrigine 100 mg tablet 100 mg PO BID #180 tab 06/30/21 08/27/21 folic acid 1 mg tablet 1 mg PO DAILY #90 tab-cap 08/18/21 08/27/21 levetiracetam 500 mg tablet 500 mg PO Q12H #60 tab 08/22/21 08/27/21 (Keppra) Previous Rx's Medication Instructions Recorded paroxetine HCl 30 mg tablet (Paxil) 60 mg PO DAILY #180 tab-cap 12/15/20 polyethylene glycol 3350 17 17 g PO DAILY PRN #850 g 12/15/20 gram/dose oral powder (Miralax) omeprazole 20 mg capsule,delayed 20 mg PO DAILY #90 cap 06/23/21 release lamotrigine 100 mg tablet 100 mg PO BID #180 tab 06/30/21 folic acid 1 mg tablet 1 mg PO DAILY #90 tab-cap 08/18/21 levetiracetam 500 mg tablet 500 mg PO Q12H #60 tab 08/22/21 (Keppra) Allergies Allergy/AdvReac Type Severity Reaction Status Date / Time rizatriptan benzoate Allergy Unknown Verified 08/27/21 10:44 [From [facility]] Silk Tape AdvReac Unknown Skin Rash Uncoded 08/27/21 10:44 General Stated Complaint: Seizure CORY: 3 Review of Systems All systems reviewed & are unremarkable except as noted in HPI and below Constitutional Constitutional: Denies chills, Denies excessive sweating, Denies fatigue, Denies fever(s), Denies weakness and Denies weight loss Eyes Eyes: Reports system reviewed and no additional complaints, except as documented and Denies blurry vision ENT Ears, Nose, Mouth, and Throat: Denies vertigo, Denies dizziness, Denies otalgia, Denies nasal congestion, Denies sore throat and Denies throat swelling Cardiovascular Cardiovascular: Denies chest pain, Denies syncope, Denies rapid heart rate and Denies dyspnea Respiratory Respiratory: Denies chest congestion, Denies cough, Denies pain on inspiration and Denies dyspnea Gastrointestinal Gastrointestinal: Denies abdominal pain, Denies diarrhea and Denies vomiting Genitourinary Genitourinary: Denies hematuria, Denies dysuria and Denies flank pain Musculoskeletal Musculoskeletal: Denies back pain and Denies joint swelling Integumentary/Breasts Skin/Breast: Denies lesions and Denies rash Neurologic Neurologic: Denies behavioral changes, Denies confusion, Denies vertigo, Denies dizziness, Denies syncope, Denies localized weakness, Reports seizure-like activity and Denies weakness Psychiatric Psychiatric: Denies behavioral changes, Denies confusion and Denies depression Endocrine Endocrine: Denies excessive sweating and Denies fatigue Hematologic/Lymphatic Hematologic/Lymphatic: Denies easy bruising and Denies lymphadenopathy Allergic/Immunologic Allergic/Immunologic: Denies throat swelling PFSH All Active Problems (Updated 08/28/21 @ 11:04 by Fariba Barbosa MD) Discharge planning issues (Acute) DVT prophylaxis (Acute) Seizure-like activity (Acute) Seizure (Acute) Partial epilepsy (Acute 04/29/14) Cerebral palsy (Acute) right hemiparesis Depressive disorder (Acute 05/08/07) Anxiety (Acute 04/28/13) Medical History Constipation, chronic (02/11/15) -2015 : gastroscopy: oesophagitis and gastritis- Omeprazole x 8 weeks and taper/no nsaids 01-17/colono. normal 2009/chronic laxatives Esophagitis (03/08/16) 03/08/16 [facility] Nephrolithiasis Porencephalic cyst, congenital Left Surgical History Breast, Cyst Aspiration (11/22/04) CLAVICLE FX (06/05/06) LEFT Colonoscopy - MAC (~02/26/19) 10/20/08 Ligation of fallopian tube RIB FX (06/27/07) 10TH RIGHT RIB S/P hysterectomy with oophorectomy Family History Mother , AGE 65 Substance abuse Diabetes Heart disease Father Heart disease Alcohol abuse Stroke Sister Diabetes Depression Sister Alcohol abuse Daughter No problems noted. 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 WIL Juarez. State appointed guardian Abi. Enjoys knitting, dancing, coloring Exam Const General: cooperative, no acute distress and ill appearing chronically Orientation: alert and awake [facility] Head: normal to inspection Ears: hearing grossly normal bilaterally and external ears normal General nose exam: external nose normal Face and sinus: normal facial exam Mouth: oral mucosae normal Teeth and gingiva: dentition normal Throat: posterior oropharynx normal Eyes General: appearance normal, both eyes and all related structures Eyelids: eyelids normal Pupils: PERRL EOM: EOM intact bilaterally Neck Neck: normal visual inspection Lymphatic: no lymphadenopathy noted Chest Chest: normal inspection of the chest Resp Effort & Inspection: normal respiratory effort and able to speak in complete sentences Auscultation: clear to auscultation bilaterally Cardio Rate: regular rate Rhythm: regular rhythm GI Inspection: normal to inspection Palpation: soft, not firm, no guarding, no hepatosplenomegaly, no masses and nontender Auscultation: normal bowel sounds Back/Spine/Pelvis Back: no CVA tenderness Skin General skin exam: no rashes or lesions noted Neuro General: patient alert, patient awake, moves all extremities and no meningeal signs Cranial Nerves: CN's II-XI intact bilaterally Cognition: normal cognition Speech: speech normal Gait: normal gait Motor: muscle tone normal throughout Sensory Exam: no sensory deficits noted Other: Chronic right-sided hemiparesis, no acute change from baseline Extrem General: normal to inspection, full ROM and capillary refill normal Psych Appearance: grossly normal Mental Status: mental status grossly normal Speech and Movement: speech and movement normal Affect: normal affect Thought Process: normal
[2021-08-27 10:59] LABS: Abs Immature Grans 0.01 10^3/uL (0.0-0.06); Absolute Basophil Count 0.07 10^3/uL (0.0-0.2); Absolute Eosinophil Count 0.23 10^3/uL (0.0-0.7); Absolute Lymphocyte Count 1.21 10^3/uL (1.2-3.4); Absolute Monocyte Count 0.23 10^3/uL (0.1-0.8); Absolute Neutrophil Count 2.96 10^3/uL (1.2-6.7); Basophils % 1.5; Eosinophils % 4.9; HCT 42.3 % (36.0-46.0); HGB 13.3 g/dL (11.2-15.7); Immature Grans % 0.2; Lymphocytes % 25.7; MCH 28.7 pg (27.0-33.0); MCHC 31.4 % (32.0-36.0); MCV 91.4 fL (80-95); MPV 9.6 fL (8.0-11.0); Monocytes % 4.9; Neutrophils % 62.8; Nucleated RBC 0 %; Platelet Count 275 10^3/uL (130-400); RBC 4.63 10^6/uL (3.93-5.22); RDW 12.7 % (11.7-14.6); RDW-SD 42.1 fL; WBC 4.71 10^3/uL (4.4-10.8)
[2021-08-27 11:27] LABS: ALT 27 U/L (14-59); AST 16 U/L (15-37); Albumin 3.6 g/dL (3.4-5.0); Alkaline Phosphatase 52 U/L (46-116); Anion Gap 5.6 mmol/L (3-11); BUN 9 mg/dL (7-18); Bilirubin, Total 0.2 mg/dL (0.2-1.0); CO2 29.4 mmol/L (21.0-32.0); CREATININE 1.1 mg/dL (0.55-1.02); Calcium 9.2 mg/dL (8.5-10.1); Chloride 107 mmol/L (98-107); Estimated GFR 50.17 (mL/min/1.73m2); Glucose 74 mg/dL (74-106); Potassium 4.2 mmol/L (3.5-5.1); Sodium 142 mmol/L (136-145); Total Protein 7.2 g/dL (6.4-8.2)
[2021-08-27] MEDS: levETIRAcetam 250 MG TAB 500 MG PO (12:51)
[2021-08-27 13:30] LABS: Bilirubin Negative (Negative); Blood Negative (Negative); Clarity Clear (Clear); Glucose Negative (Negative); Ketones Negative (Negative); Leukocyte Esterase Negative (Negative); Nitrite Negative (Negative); Urobilinogen 0.2 EU/dL (Up TO 0.2); pH 7.5 (5-8)
--- NOTE | 2021-08-27 14:15 | DI.MRI_ITS ---
Exam(s) MR BRAIN WO EXAM: MR BRAIN WO CLINICAL HISTORY: b/l leg twicthing, possible seizure activity TECHNIQUE: Multiplanar multisequence MRI of the brain was performed. COMPARISON: CT CT HEAD WO from 08/20/2021 FINDINGS: VENTRICLES AND EXTRA AXIAL SPACES: There is again seen a large area of encephalomalacia involving the left parietal and temporal lobes. This is unchanged. MIDLINE SHIFT: None. CEREBRAL PARENCHYMA: No focus of restricted diffusion to suggest acute infarct. No space-occupying le juan identified. There are few foci of hyperintense signal in the white matter on the T2 and FLAIR im ages likely reflecting small vessel ischemic disease. HEMORRHAGE: None. BRAINSTEM/CEREBELLUM: Normal. CALVARIUM: Normal. VISUALIZED PARANASAL SINUSES/MASTOIDS:Clear. [place]: Normal flow void. PITUITARY GLAND: Unremarkable. OTHER FINDINGS: None. IMPRESSION: No acute change in appearance of the brain. No acute abnormality. DATA REPOSITORY:
[2021-08-27 15:05] LABS: Source Nasal/Nares
[2021-08-27 15:44] LABS: COVID-19 PCR Negative (Negative)
--- NOTE | 2021-08-27 16:03 | W.PM.HP.N ---
Date of service: 08/27/21 Time of Service: 16:04 Assessment and Plan Assessment and plan (1) Seizure-like activity: Status: Acute Assessment and plan: Some of her shaking movements are not consistent with a epileptiform activity. They attenuate when she is distracted and with light pressure on her limb. She will need neurologic evaluation to help differentiate between pseudoseizure activity and actual seizure activity. Meanwhile, seizure precautions and monitor closely. (2) Partial epilepsy: Status: Acute Assessment and plan: Patient states she has not reacted well to Keppra in the past. Apparently she had kidney stones while on the Zonegran. She had been stable on the Lamictal. Dr. Cruz recommended increasing Lamictal 200 mg in the a.m. 200 mg in the p.m. We will keep her on the Keppra 500 mg twice daily for now. She will likely need EEG monitoring when it becomes available on 08/30/2021. (3) Cerebral palsy: Status: Acute Assessment and plan: Baseline right-sided hemiparesis. We will ask physical therapy to see her and work with her. (4) Anxiety: Status: Acute Assessment and plan: Patient has a known anxiety and depressive disorder. Will continue on SSRI medication. (5) Porencephalic cyst, congenital: Assessment and plan: Patient has a known porencephalic cyst that has been stable. Check MRI without contrast to look for any other masses or enlargement. History of Present Illness History of Present Illness Chief Complaint: Seizures Narrative: 61-year-old woman with history of cerebral palsy and focal motor seizures. She was here at [facility] 1 week ago with a similar presentation. She and her sister both recall her starting with a focal seizure that then generalizes to her entire left side. Her whole body shakes. She is awake and alert during these episodes. They sent her home last week and she turned around and came back within the hour. She stayed in the hospital 08/20 through 08/22/2021. Keppra was started on that admission and her lamotrigine was continued. She saw Dr. Garrett on 08/25/2021 and reported no seizures recurring at that time. Patient arrived via EMS at 815 this morning with the development of left leg shaking. She states this shaking then spread to the right leg, both arms, then the whole body. She thinks this lasted approximately 30 minutes. When EMS arrived she was given 5 mg of Versed and the shaking stopped. Work-up in the ED showed no significant abnormality. She went on to have another episode. It was at that point that it was decided to admit her to the hospital. The case was discussed with [facility] [place] they suggested increasing the Keppra. I was able to text Dr. Cruz who recommended keeping the Keppra at the same dose increase the Lamictal to 100 mg in the a.m. 200 in the p.m. Patient has continued to have shaking, which appears to be volitional. She is able to talk through these shaking spells. She is quite adamant that she is going to stay in the hospital until these are fixed. Review of Systems Narrative: Patient offers no new or concerning complaints. These shaking spells have been occurring periodically in the last few days. These are distinct from her usual seizures. She says she would normally have a seizure and then feel tired and disoriented for a period of time but there is no post ictal phase with these most recent seizures. She has no respiratory symptoms, no cough, no shortness of breath. She is not having any chest pain. She states she has not eaten anything today but otherwise denies any problems with digestion or her bowels. She has chronic right-sided hemiparesis that is unchanged. No new headaches. No vision changes. No change in her speech. PFSH All Active Problems Seizure-like activity (Acute) Seizure (Acute) Partial epilepsy (Acute 04/29/14) Cerebral palsy (Acute) right hemiparesis Depressive disorder (Acute 05/08/07) Anxiety (Acute 04/28/13) Medical History Constipation, chronic (02/11/15) -2015 : gastroscopy: oesophagitis and gastritis- Omeprazole x 8 weeks and taper/no nsaids 01-17/colono. normal 2009/chronic laxatives Esophagitis (03/08/16) 03/08/16 [facility] Nephrolithiasis Porencephalic cyst, congenital Left Surgical History Breast, Cyst Aspiration (11/22/04) CLAVICLE FX (06/05/06) LEFT Colonoscopy - MAC (~02/26/19) 10/20/08 Ligation of fallopian tube RIB FX (06/27/07) 10TH RIGHT RIB S/P hysterectomy with oophorectomy Family History Mother , AGE 65 Substance abuse Diabetes Heart disease Father Heart disease Alcohol abuse Stroke Sister Diabetes Depression Sister Alcohol abuse Daughter No problems noted. Daughter Asthma Social History Smoking/Tobacco Use Status: Never Smoking risk assessment performed?: Yes Alcohol Intake: former Drug use: Never Substance use type: does not use Caregiver/Support person: Yes (lives in a shared home, has lead caregiver ) Housing: assisted living facility Number of Children: 2 number of grandchildren: 8 Education Level: high school current occupation: disabled Pets and animals: Yes Pets and animals: dog(s) What is your relationship status?: Panel score (0-1 are the most socially isolated patients): 0 Duration: 30-45 minutes/day Frequency: 3-4 times per week Cherelle/Druze: None Special cherelle needs: No Do you feel safe at home: Yes Additional Social history: Moved with caregiver Tiki in Fall 2018 (sister Cristal was too old to be caring for her but I believe is still her guardian). WIL Juarez. State appointed guardian Abi. Enjoys knitting, dancing, coloring Meds Allergies and Home Medications Allergies Allergy/AdvReac Type Severity Reaction Status Date / Time rizatriptan benzoate Allergy Unknown Verified 08/27/21 10:44 [From Maxalt] Silk Tape AdvReac Unknown Skin Rash Uncoded 08/27/21 10:44 Home Medications Medication Instructions Recorded Confirmed Type calcium citrate 315 mg 1 ea PO BID #90 tab-cap 02/20/14 08/27/21 History calcium-vitamin D3 6.25 mcg (250 unit) tablet (Calcitrate) magnesium hydroxide 400 mg (170 mg 400 mg PO DAILY tab 01/21/19 08/27/21 History magnesium) chewable tablet paroxetine HCl 30 mg tablet (Paxil) 60 mg PO DAILY #180 tab-cap 12/15/20 08/27/21 Rx polyethylene glycol 3350 17 17 g PO DAILY PRN #850 g 12/15/20 08/27/21 Rx gram/dose oral powder (Miralax) omeprazole 20 mg capsule,delayed 20 mg PO DAILY #90 cap 06/23/21 08/27/21 Rx release lamotrigine 100 mg tablet 100 mg PO BID #180 tab 06/30/21 08/27/21 Rx folic acid 1 mg tablet 1 mg PO DAILY #90 tab-cap 08/18/21 08/27/21 Rx levetiracetam 500 mg tablet 500 mg PO Q12H #60 tab 08/22/21 08/27/21 Rx (Keppra) Exam Narrative Exam Narrative: On exam she is awake alert and quite talkative. She defers to her sister for some answers. Her communication is sometimes inconsistent when she describes her seizures. She has no facial asymmetry, speech is clear. Neck is supple without any apparent adenopathy her lung sounds are clear on the right and left. Her heart sounds are regular there is no murmur. Her abdomen somewhat rounded but overall soft and nontender. 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 The left leg began shaking uncontrollably when I asked her to move it but then when distracted the shaking subsided. The left arm seem to be able to move freely on command. Patient reminded me a couple of times that she was sweaty. But she did not appear diaphoretic at all. Results Imaging Additional studies: MRI of head is pending Labs Result diagrams: 08/27/21 10:48 08/27/21 11:06 Labs: Laboratory Results - last 24 hr 08/27/21 08/27/21 08/27/21 10:48 10:48 10:48 WBC 4.71 RBC 4.63 Hgb 13.3 Hct 42.3 MCV 91.4 MCH 28.7 MCHC 31.4 L RDW 12.7 Plt Count 275 MPV 9.6 Immature Gran % 0.2 Neutrophils % 62.8 Lymphocytes % 25.7 Monocytes % 4.9 Eosinophils % 4.9 Basophils % 1.5 Nucleated RBC % 0 Absolute Neutrophils 2.96 Absolute Lymphocytes 1.21 Absolute Monocytes 0.23 Absolute Eosinophils 0.23 Absolute Basophils 0.07 Sodium Cancelled Potassium Cancelled Chloride Cancelled Carbon Dioxide Cancelled Anion Gap Cancelled BUN Cancelled Creatinine Cancelled Estimated GFR/1.73 m2 Cancelled Glucose Cancelled Calcium Cancelled Total Bilirubin Cancelled AST Cancelled ALT Cancelled Alkaline Phosphatase Cancelled Total Protein Cancelled Albumin Cancelled Urine Color Urine Clarity Urine pH Ur Specific [place] Urine Protein Urine Ketones Urine Blood Urine Nitrite Urine Bilirubin Urine Urobilinogen Ur Leukocyte Esterase Urine Glucose Lamotrigine Cancelled Levetiracetam Cancelled COVID-19 Source SARS-CoV-2 (PCR) 08/27/21 08/27/21 08/27/21 11:06 13:00 15:00 WBC RBC Hgb Hct MCV MCH MCHC RDW Plt Count MPV Immature Gran % Neutrophils % Lymphocytes % Monocytes % Eosinophils % Basophils % Nucleated RBC % Absolute Neutrophils Absolute Lymphocytes Absolute Monocytes Absolute Eosinophils Absolute Basophils Sodium 142 Potassium 4.2 Chloride 107 Carbon Dioxide 29.4 Anion Gap 5.6 BUN 9 Creatinine 1.1 H Estimated GFR/1.73 m2 50.17 Glucose 74 Calcium 9.2 Total Bilirubin 0.2 AST 16 ALT 27 Alkaline Phosphatase 52 Total Protein 7.2 Albumin 3.6 Urine Color Yellow Urine Clarity Clear Urine pH 7.5 Ur Specific [place] 1.020 Urine Protein Negative Urine Ketones Negative Urine Blood Negative Urine Nitrite Negative Urine Bilirubin Negative Urine Urobilinogen 0.2 Ur Leukocyte Esterase Negative Urine Glucose Negative Lamotrigine Levetiracetam COVID-19 Source Nasal/Nares SARS-CoV-2 (PCR) Negative Last Vital Signs Temp 36.4 C L 08/27/21 16:00 Pulse 79 08/27/21 16:00 Resp 15 08/27/21 16:00 BP 110/67 08/27/21 16:00 Pulse Ox 98 08/27/21 16:00 PAWSS Have you Been Recently Intoxicated or Drunk Within the Last 30 days?: No Result: 0
--- NOTE | 2021-08-27 16:16 | PHA.REVIEW ---
Pharmacy Admission Review - Admission Clinical Review (Last Updated 08/25/21 @ 10:24 by Rhianna Garrett MD) Seizure-like activity (Acute) rizatriptan benzoate [From Maxalt] Allergy (Unknown, Verified 08/27/21 10:44) Silk Tape Adverse Reaction (Unknown, Uncoded 08/27/21 10:44) Skin Rash Resuscitation Status Full Code Height 5 ft 3 in Weight 64.6 kg - Renal Dosing Renal Dosing: BUN 9 mg/dL (7-18) 08/27/21 11:06 Creatinine 1.1 mg/dL (0.55-1.02) H 08/27/21 11:06 Medications needing adjustments: Reviewed (SCr: 1.1. eCrCl: 43.30mL/min. All medications dosed appropriately.) - Anticoagulation Anticoagulation: Hgb 13.3 g/dL (11.2-15.7) 08/27/21 10:48 Hct 42.3 % (36.0-46.0) 08/27/21 10:48 Plt Count 275 10^3/uL (130-400) 08/27/21 10:48 Creatinine 1.1 mg/dL (0.55-1.02) H 08/27/21 11:06 DVT Prophylaxis: Reviewed Medications: Enoxaparin (Enoxaparin 40mg SC Q24H.) - Opiate Usage Evaluate Pain Scale/Pains Meds: N/A (Pain scale ratings: 0. No opiates ordered.) Scheduled Bowel Reg ordered if on Opiates?: No (Miralax PRN ordered.) - Relevant Labs Sodium 142 mmol/L (136-145) 08/27/21 11:06 Potassium 4.2 mmol/L (3.5-5.1) 08/27/21 11:06 Chloride 107 mmol/L (98-107) 08/27/21 11:06 Electrolytes, C-Reactive P, ESR: Reviewed - DM Control DM Control: Glucose 74 mg/dL (74-106) 08/27/21 11:06 - Heart Failure/ID EF%, MARK's, B-Blockers, Diuretics: N/A - BP Control BP Control: Blood Pressure 110/67 Blood Pressure 103/73 Blood Pressure 103/72 Blood Pressure 110/67 Blood Pressure 112/66 Blood Pressure 117/73 Blood Pressure 99/65 Blood Pressure 106/67 Blood Pressure 95/63 Blood Pressure 106/67 Blood Pressure 104/62 Blood Pressure 101/67 Blood Pressure 112/66 Blood Pressure 100/68 Blood Pressure 100/68 If elevated: Reviewed (Blood pressure low so far this admission.) - Qtc Review If Elevated: N/A - IV to PO Switch IV Medications: Reviewed - Home Meds Home Med List reviewed: Reviewed Relevent Home Meds Not ordered & why?: All home meds ordered. - Current meds Current Medication Order Review: Reviewed - Comments Comments/Follow Ups: Continue to monitor labs, vitals and changes in medications.
[2021-08-27] MEDS: Enoxaparin 40 MG/0.4 ML SYR SC (17:05)
--- NOTE | 2021-08-27 17:58 | NUR.NOTE ---
RN speaks to guardian and will have Dr. Barbosa speak to her in the a.m. Dr. Barbosa is made aware of same.Nursing Note:
--- NOTE | 2021-08-27 18:52 | NUR.NOTE ---
Patient given a pitcher of spring water on ice.Nursing Note:
[2021-08-27] MEDS: levETIRAcetam 500 MG TAB PO (20:11)
[2021-08-27] MEDS: Normal Saline Flush 10 ML SYR IVP (20:11)
[2021-08-27] MEDS: lamoTRIgine 100 MG TAB 200 MG PO (21:21)
[2021-08-28] VITALS (104 sets, daily range): BP systolic 94–123; BP diastolic 51–74; PULSE 57–118; RESP 10–34; TEMP 36–36.6; O2SAT 78–98
[2021-08-28 07:08] LABS: Abs Immature Grans 0.01 10^3/uL (0.0-0.06); Absolute Basophil Count 0.08 10^3/uL (0.0-0.2); Absolute Eosinophil Count 0.33 10^3/uL (0.0-0.7); Absolute Lymphocyte Count 2.25 10^3/uL (1.2-3.4); Absolute Monocyte Count 0.36 10^3/uL (0.1-0.8); Absolute Neutrophil Count 2.62 10^3/uL (1.2-6.7); Basophils % 1.4; Eosinophils % 5.8; HGB 13.6 g/dL (11.2-15.7); Immature Grans % 0.2; Lymphocytes % 39.8; MCH 29.2 pg (27.0-33.0); MCHC 32.4 % (32.0-36.0); MCV 90.1 fL (80-95); MPV 9.4 fL (8.0-11.0); Monocytes % 6.4; Neutrophils % 46.4; Nucleated RBC 0 %; Platelet Count 290 10^3/uL (130-400); RBC 4.66 10^6/uL (3.93-5.22); RDW 12.6 % (11.7-14.6); RDW-SD 41.7 fL; WBC 5.65 10^3/uL (4.4-10.8)
[2021-08-28 07:23] LABS: BUN 14 mg/dL (7-18); CREATININE 1.1 mg/dL (0.55-1.02); Calcium 9.7 mg/dL (8.5-10.1); Chloride 106 mmol/L (98-107); Estimated GFR 50.17 (mL/min/1.73m2); Glucose 90 mg/dL (74-106); Magnesium 2.2 mg/dL (1.8-2.4); Potassium 4.1 mmol/L (3.5-5.1); Sodium 141 mmol/L (136-145)
[2021-08-28] MEDS: Omeprazole 20 MG CAPCR PO (08:20)
[2021-08-28] MEDS: PARoxetine 20 MG TAB 60 MG PO (08:20)
[2021-08-28] MEDS: lamoTRIgine 100 MG TAB PO (08:20)
[2021-08-28] MEDS: Magnesium Oxide 400 MG TAB PO (08:20)
[2021-08-28] MEDS: Folic Acid 1 MG TAB PO (08:20)
[2021-08-28] MEDS: levETIRAcetam 500 MG TAB PO ×2 (08:20→20:40)
--- NOTE | 2021-08-28 08:24 | NUR.NOTE ---
Jolanta board report given to Dr. Barbosa and others. Patient's status may be downgraded to Med/Surg level today.Nursing Note:
--- NOTE | 2021-08-28 08:25 | NUR.NOTE ---
Patient is set up with breakfast tray.Nursing Note:
--- NOTE | 2021-08-28 09:08 | NUR.NOTE ---
Physical therapist begins working with patient.Nursing Note:
--- NOTE | 2021-08-28 09:23 | PT.INIE ---
Date of service: 08/28/21 Time of Service: 09:00 PT Notes Visit Reasons: breakthrough seizures Inpatient Physical Therapy Evaluation *Full evaluation not completed today, due to onset of seizure. Ativan allowed for resolution, but also patient became very sleepy. Will resume tomorrow.* Date: 08/28/2021 Referring Doctor: Fariba Barbosa MD PT Orders: PT CONSULT: Limited ability Precautions: Epileptic, fall risk Patient Profile/Admitting Diagnosis: 61-year-old female presenting to [facility] ER via EMS on 08/27/2021 due to seizure activity, admitted medical management. She has been admitted 1 week prior with the same diagnosis. Has a history of epilepsy with focal motor seizures, questionable current pseudoseizures, in the setting of CP with right hemiparesis. PMHX: All Active Problems? Seizure-like activity (Acute) Seizure (Acute) Partial epilepsy (Acute 04/29/14) Cerebral palsy (Acute) right hemiparesis Depressive disorder (Acute 05/08/07) Anxiety (Acute 04/28/13) Medical History? Constipation, chronic (02/11/15) -2015 : gastroscopy: oesophagitis and gastritis- Omeprazole x 8 weeks and taper/no nsaids 01-17/colono. normal 2009/chronic laxatives Esophagitis (03/08/16) 03/08/16 [facility] Nephrolithiasis Porencephalic cyst, congenital Left Surgical History? Breast, Cyst Aspiration (11/22/04) CLAVICLE FX (06/05/06) LEFTColonoscopy - MAC (~02/26/19) 10/20/08Ligation of fallopian tube RIB FX (06/27/07) 10TH RIGHT RIBS/hysterectomy with oophorectomy Social History/Home Situation: Navya stating she lives in [place], [place], with a couple by the name of Tiki and Dennis who are her home providers. She lives in the basement apartment, with 1 flight of stairs to enter the apartment with 2 rails. She is able to do all her basic house chores and ADLs, Tiki does the cooking for her, she does her self-care. She does not drive due to her epilepsy. Talks about her children and grandchildren who live nearby. Current Functional Limitations: Inability to attempt standing due to seizure activity. Independent with supine to sit edge of bed, due to induced seizure activity required assist to return to bed Equipment Owned/DME: None Subjective: Navya reporting some left lower abdominal pain, she is questioning if this was gas related. She has had multiple bowel movements without relief. States she has been able to sit up in bed and transfer to the commode today without any difficulty. Has only had one episode of left leg shaking, in the middle of the night. She is unable to state how long the shaking lasted. She also reports that she has had episodes of this like shaking and trunk shaking, but was immediately relieved when she saw her grandson. She does not have awareness that the seizures happening, with her most recent presentation of seizures, as she has had with her chronic seizure history. Objective: General Observation: Lying supine in hospital bed, head of bed approximately 40 degrees. Blood pressure cuff left arm, telemetry. R UE flexor tone. Developed isolated L quad muscle fasciculations after quad MMT, progressed to trunk ext fasciculations. Patient assisted back to supine, and began to have bilateral leg fasciclations with adduction movement pattern with continued trunk extension fasciculations. She maintained a coherent conversation with me throughout. Time of seizure like activity in my presence was about 10 min, of which remained present upon my exit with Dr. Chelsey sousa. Mental Status: Alert to person and place and time. Pain: Mild left lower abdomen, does not quantify Vital Signs: BP 109/58, HR 70, O2 saturation on room air is 96% ROM: Unable to fully assess today, due to seizure onset - will resume tomorrow. Right Upper Extremity: [] Left Upper Extremity: [] Right Lower Extremity: [] Left Lower Extremity: [] Strength: Unable to full assess today, due to seizure onset - will resume tomorrow. Right Upper Extremity: [] Left Upper Extremity: [] Right Lower Extremity: Globally 5/5 throughout Left Lower Extremity: Globally 5/5 throughout. Left quad MMT initiates quad shaking with progression into bilateral LE shaking and trunk shaking Sensation: Not assessed due to presence of seizure activity Bed Mobility/Transfers: Unable to attempt due to onset of seizure Gait: Unable to attempt due to onset of seizure Balance: Static Sitting: Good Dynamic Sitting: Not evaluated Static Standing: Not evaluated Dynamic Standing: Not evaluated Special Tests: Will assess tomorrow, in hopes of completing mobility components of evaluation. Mobility Limitations Standardized Measure [facility], 6 clicks Basic Mobility Inpatient Short Form: Raw Score: [] Standardized Score: [] CMS Score: [] Informed Consent/Education: Patient instructed in purpose of PT consult and plan of care. Assessment: Patient is a 61 year old female referred to physical therapy services with the diagnosis of epilepsy, with recent exacerbation of condition with questionable pseudoseizures with history of focal motor seizures, in setting of CP with R hemiplegia. Patient presents with epilepsy and CP with R hemiplegia with clinical signs and symptoms consistent with muscle fasiculations, and rigid L UE. Full evaluation not able to be completed today due to seizure onset. Impairments are contributing to the following functional limitations: Inability to complete safe independent ambulation, transfers, and intermittent need for bed mobility assist. Even without completion of full evaluation, it is clear patient will require PT rehab intervention to insure safe transfer and ambulation activities, preventing falls and with hope of returning to baseline activity level. Patient is assessed as a High complexity based on the following: History: See comorbidities Examination: See above impairments and functional limitations Presentation: Unstable Decision Making: moderate Goals: Goals X1 week 1. Supine-Sit independent 2. Sit-Supine independent 3. Sit-Stand independent 4. Stand-Sit independent 5. Bed-Chair independent 6. Chair-Bed independent 7. Gait 50ft, household distance, supervision 8. Stairs full flight, with two rails, supervision 9. Independent with home exercise program 10. Balance Fair with dynamic sitting and standing, good with static standing and sitting Plan of Care/Treatment Plan: 1-2x/day, 7 days/week x 1 week. Plan of care has been reviewed with the SUBSTATION OPERATOR AUTOMATIC providing the service under Physical Therapy direction. Initiate Physical Therapy intervention for strengthening, bed mobility, transfers, gait, stairs, balance training, use of assistive device. DISCHARGE RECOMMENDATIONS: TBD, with possibility of modifications due to patient response to medical control of seizures. Today's recommendations are based on today's limited evaluation. SNF versus LTC based on ability to participate and progress TREATMENT CODE/TIME: 30 min, [id number] Mala Brady, MPT
[2021-08-28] MEDS: LORazepam 2 MG/ML VIAL (09:33)
[2021-08-28] MEDS: LORazepam 2 MG/ML VIAL 0.5 MG IVP (09:34)
--- NOTE | 2021-08-28 09:38 | NUR.NOTE ---
Back to back doses of 0.5mg of Ativan given to patient. Hip movement and bilateral leg movements end. Patient now resting comfortably in bed with no jerking movements.Nursing Note:
--- NOTE | 2021-08-28 10:19 | PGE_ITS ---
Date of Service Date of service: 08/28/21 Time of Service: 10:19 Assessment and Plan Assessment and plan (1) Seizure-like activity: Status: Acute Assessment and plan: What I witnessed today did not look like a seizure. Pseudoseizure activity is most likely. The patient remains on seizure precautions in the ICU with increased lamictal dose and with keppra 500 mg PO BID. Guardian (Abi) is inquiring if it would be reasonable to resume zonisomide if the patient drinks more water. Await neurology consult on Monday. (2) Partial epilepsy: Status: Acute Assessment and plan: As above. The patient did not tolerate increased doses of keppra in the past, so she is going to continue on keppra 500 mg PO BID as well as increased dose (3) Cerebral palsy: Status: Acute Assessment and plan: right-sided hemiparesis is chronic. PT consulted, but the patient had her episode of shaking today during the PT consult. It will be reattempted again tomorrow. (4) Anxiety: Status: Acute Assessment and plan: Continue SSRI (5) Porencephalic cyst, congenital: Assessment and plan: MRI of the brain is stable. Probably not a true factor in the current admission. (6) DVT prophylaxis: Status: Acute Assessment and plan: SC enoxaparin (7) Discharge planning issues: Status: Acute Assessment and plan: Full code Spoke with guardian, Abi, and sister, Donna, to update them on patient's condition. Keep in the ICU for closer monitoring. Subjective Subjective Interval history since last seen: Was called to patient's bedside because the patient started to have an episode of shaking during her PT session. She was sitting at the side of the bed when her left leg started shaking, then her right and her trunk started shaking. PT was able to get her back to the bed and the patient did have control of her feet. There were times during the episode where it appeared like she was shrugging her shoulders, and the truncal activity appeared like pelvic tilts. The patient was awake and appropriately conversant throughout her episode. She was able to answer the phone with her LUE and janes a conversation during the episode. She stated that it made her feel tired and that she had no control over the shaking. Administration of saline flush did not result in resolution of sx. Received 0.5 mg of ativan x 2 with resolution of sx. Overall, episode lasted 25 minutes. The patient denied dizziness, headache, chest pain, shortness of breath, nausea. Reported LLQ pain since waking up this morning like someone gave me a shot. Exam Narrative Exam Narrative: General: Middle-aged female who is A&Ox3 and smiling during the episode of shaking which does not look like a classic tonic clonic seizure - it looks like the patient is doing pelvic tilts in bed. Able to answer questions, answer phone, janes a conversation, watching Dirty Dancing during the episode HEENT: EOMI, MMM Heart: RRR, no m/r/g Lungs: CTAB Abdomen: soft, nontender, nondistended Extremities: no edema BLEs Objective Last Vital Signs Temp 36.0 C L 08/28/21 08:30 Pulse 78 08/28/21 08:30 Resp 16 08/28/21 08:30 BP 110/56 L 08/28/21 08:30 Pulse Ox 94 08/28/21 08:30 Laboratory Results - last 24 hr 08/27/21 08/27/21 08/27/21 10:48 10:48 10:48 WBC 4.71 RBC 4.63 Hgb 13.3 Hct 42.3 MCV 91.4 MCH 28.7 MCHC 31.4 L RDW 12.7 Plt Count 275 MPV 9.6 Immature Gran % 0.2 Neutrophils % 62.8 Lymphocytes % 25.7 Monocytes % 4.9 Eosinophils % 4.9 Basophils % 1.5 Nucleated RBC % 0 Absolute Neutrophils 2.96 Absolute Lymphocytes 1.21 Absolute Monocytes 0.23 Absolute Eosinophils 0.23 Absolute Basophils 0.07 Sodium Cancelled Potassium Cancelled Chloride Cancelled Carbon Dioxide Cancelled Anion Gap Cancelled BUN Cancelled Creatinine Cancelled Estimated GFR/1.73 m2 Cancelled Glucose Cancelled Calcium Cancelled Magnesium Total Bilirubin Cancelled AST Cancelled ALT Cancelled Alkaline Phosphatase Cancelled Total Protein Cancelled Albumin Cancelled Urine Color Urine Clarity Urine pH Ur Specific [place] Urine Protein Urine Ketones Urine Blood Urine Nitrite Urine Bilirubin Urine Urobilinogen Ur Leukocyte Esterase Urine Glucose Lamotrigine Cancelled Levetiracetam Cancelled COVID-19 Source SARS-CoV-2 (PCR) 08/27/21 08/27/21 08/27/21 11:06 13:00 15:00 WBC RBC Hgb Hct MCV MCH MCHC RDW Plt Count MPV Immature Gran % Neutrophils % Lymphocytes % Monocytes % Eosinophils % Basophils % Nucleated RBC % Absolute Neutrophils Absolute Lymphocytes Absolute Monocytes Absolute Eosinophils Absolute Basophils Sodium 142 Potassium 4.2 Chloride 107 Carbon Dioxide 29.4 Anion Gap 5.6 BUN 9 Creatinine 1.1 H Estimated GFR/1.73 m2 50.17 Glucose 74 Calcium 9.2 Magnesium Total Bilirubin 0.2 AST 16 ALT 27 Alkaline Phosphatase 52 Total Protein 7.2 Albumin 3.6 Urine Color Yellow Urine Clarity Clear Urine pH 7.5 Ur Specific [place] 1.020 Urine Protein Negative Urine Ketones Negative Urine Blood Negative Urine Nitrite Negative Urine Bilirubin Negative Urine Urobilinogen 0.2 Ur Leukocyte Esterase Negative Urine Glucose Negative Lamotrigine Levetiracetam COVID-19 Source Nasal/Nares SARS-CoV-2 (PCR) Negative 08/28/21 08/28/21 06:00 06:00 WBC 5.65 RBC 4.66 Hgb 13.6 Hct 42.0 MCV 90.1 MCH 29.2 MCHC 32.4 RDW 12.6 Plt Count 290 MPV 9.4 Immature Gran % 0.2 Neutrophils % 46.4 Lymphocytes % 39.8 Monocytes % 6.4 Eosinophils % 5.8 Basophils % 1.4 Nucleated RBC % 0 Absolute Neutrophils 2.62 Absolute Lymphocytes 2.25 Absolute Monocytes 0.36 Absolute Eosinophils 0.33 Absolute Basophils 0.08 Sodium 141 Potassium 4.1 Chloride 106 Carbon Dioxide 28.0 Anion Gap 7.0 BUN 14 Creatinine 1.1 H Estimated GFR/1.73 m2 50.17 Glucose 90 Calcium 9.7 Magnesium 2.2 Total Bilirubin AST ALT Alkaline Phosphatase Total Protein Albumin Urine Color Urine Clarity Urine pH Ur Specific [place] Urine Protein Urine Ketones Urine Blood Urine Nitrite Urine Bilirubin Urine Urobilinogen Ur Leukocyte Esterase Urine Glucose Lamotrigine Levetiracetam COVID-19 Source SARS-CoV-2 (PCR) Objective Narrative Objective Narrative: MRI brain: No acute change in appearance of the brain.? No acute abnormality. PAWSS Have you Been Recently Intoxicated or Drunk Within the Last 30 days?: No Result: 0
--- NOTE | 2021-08-28 11:37 | INITIAL_ITS ---
- If Service Date Differs Date of service: 08/28/21 Time of Service: 11:37 Care Management Initial Assess REASON FOR HOSPITALIZATION:: Breakthrough Seizures PAST MEDICAL HISTORY/PAST SURGICAL HISTORY:: Medical History . Constipation, chronic (02/11/15). : gastroscopy: oesophagitis and gastritis- Omeprazole x 8 weeks and taper/no nsaids. 01-17/colono. normal 2009/chronic laxatives. Esophagitis (03/08/16). 03/08/16 [facility]. Nephrolithiasis. Porencephalic cyst, congenital. Left. Surgical History . Breast, Cyst Aspiration (11/22/04). CLAVICLE FX (06/05/06). LEFT. Colonoscopy - MAC (~02/26/19). 10/20/08. Ligation of fallopian tube. RIB FX (06/27/07). 10TH RIGHT RIB. S/P hysterectomy with oophorectomy PREVIOUS FUNCTIONAL STATUS/SOCIAL/FAMILY SUPPORTS:: Navya is and has lived in [facility] with her caregiver's Roxana Wade since the Fall 2018. Her guardian is Abi Cook and her sister Donna is her HCA. Navya shares that she enjoys music and dancing in her spare time. CURRENT FUNCTIONAL STATUS:: Navya remains in the ICU and had seizure-like activity this morning; described in MD note for further details. She was evaluated by PT as well, CM continues to follow. ADVANCE DIRECTIVES:: On file at [facility], HCA is Donna Diehl (sister), Alt. agent is Abi Cornelius (Guardian). Has patient been provided with info about the portal/API?: Yes Did the patient sign up for the portal?: Yes CODE STATUS:: Full Code INSURANCE COVERAGE / FINANCIAL ISSUES:: Medicaid. Medicare CURRENT HOME/COMMUNITY SERVICES/EQUIPMENT:: [place] Dennis Grantardt (Home providers): . Abi Cook(Guardian): . Donna Diehl (sister/HCA): . Joseline Piedra (Chrome Cleaner @ [facility] Support Services): . PRIMARY CARE PHYSICIAN:: Rhianna Garrett. POTENTIAL DISCHARGE NEEDS:: Evaluations for discharge considerations; PT and Neurology consults. PATIENT/FAMILY EDUCATION NEEDS:: Review of discharge instructions, discuss Ask Me Three. ANTICIPATED BARRIERS TO DISCHARGE:: Guardian, Abi is advocating for neurology consult prior to discharge, which would delay until Monday at the earliest. TRANSPORTATION:: Via private vehicle with home provider or alternate support person identified by Navya's guardian. PLAN:: Per PT martha, Navya is currently unable to complete safe independent ambulation and transfers. business management associate states standby assist for transfers. Navya will return to her caregiver, Tiki's home when ready per MD, possibly with increased services. She will transport via private vehicle with caregiver or [facility]. CM continues to follow. Readmission - Within the Past 30 Days Yes or No: Y - Date of First Admission Date of 1st Admission: 08/20/21 - Date of this Admission Date of Admission: 08/27/21 This admission was: Through ED - Office Visit Since 1st Admission Have you seen your PCP in the office since discharge?: Yes Date of PCP Appointment: 08/25/21 Had an appointment Been Scheduled?: Yes - Assessment for Readmission Summary of readmission circumstances, based upon interviews: Breakthrough seizures.
--- NOTE | 2021-08-28 12:12 | NUR.NOTE ---
Patient sets up patient with her lunch tray in bed. Nursing Note:
[2021-08-28] MEDS: Normal Saline Flush 10 ML SYR IVP ×2 (13:58→20:41)
[2021-08-28] MEDS: Enoxaparin 40 MG/0.4 ML SYR SC (14:10)
--- NOTE | 2021-08-28 14:24 | NUR.NOTE ---
RN gives patient a popsicle as per her request. Patient at ease and watching t.v.Nursing Note:
[2021-08-28] MEDS: Docusate Sodium 100 MG CAP PO (20:40)
[2021-08-28] MEDS: lamoTRIgine 100 MG TAB 200 MG PO (20:41)
[2021-08-29] VITALS (23 sets, daily range): BP systolic 67–120; BP diastolic 54–84; PULSE 61–89; RESP 11–22; TEMP 35.9–36.6; O2SAT 91–99
--- NOTE | 2021-08-29 08:03 | NUR.NOTE ---
RN sets patient up with breakfast tray. Patient starts to feed herself. No evidence of any seizure like symptoms.Nursing Note:
[2021-08-29] MEDS: Folic Acid 1 MG TAB PO (08:05)
[2021-08-29] MEDS: Docusate Sodium 100 MG CAP PO ×2 (08:05→21:26)
[2021-08-29] MEDS: lamoTRIgine 100 MG TAB PO (08:05)
[2021-08-29] MEDS: Magnesium Oxide 400 MG TAB PO (08:05)
[2021-08-29] MEDS: levETIRAcetam 500 MG TAB PO ×2 (08:05→21:27)
[2021-08-29] MEDS: Omeprazole 20 MG CAPCR PO (08:06)
[2021-08-29] MEDS: PARoxetine 20 MG TAB 60 MG PO (08:06)
--- NOTE | 2021-08-29 08:20 | NUR.NOTE ---
RN participates in white board discussion about patient with Instructional Systems Design Consultant, second nurse and respiratory therapist in attendance.Nursing Note:
[2021-08-29] MEDS: Normal Saline Flush 10 ML SYR IVP ×2 (08:47→21:26)
--- NOTE | 2021-08-29 09:47 | NUR.NOTE ---
Patient working on some crossword puzzles and listening to classic rock with no signs of seizure activity.Nursing Note:
--- NOTE | 2021-08-29 10:43 | NUR.NOTE ---
Physical therapist works with patient ambulating throughout the room. Patient then comes out into the [place] and walks and even does a little dance. Patient's spirits are high today.Nursing Note:
--- NOTE | 2021-08-29 10:54 | PTTR_ITS ---
PT Notes Visit Reasons: Breakthrough Seizures Subjective: If she thinks of her grandson, aBl, she feels she can ease her muscle shakes. Objective: Rx time: 10:25-10:55 a.m., 30 min direct and total Codes: [id number] Functional mobility: Independent bed mobility Close supervision with STS, stand to sit CG with ambulation and dynamic movements Observation: L quad fasciculations began again with quad MMT and initial standing, but with distraction via change in movement and activity demands, we were able to over come this. Patient maintained appropriate conversation and cognitive ability throughout. Strength: UE: L UE: Grossly a5/5 throughout R UE: Nuvia flex 4/5, due to flexor tone unable to perform elbow ext, and wrist ext. Otherwise 5/5 with elbow flex and wirst flex, digit medical recruiter due to tone. Motor control: R UE flexor tone L LE extensor tone Intermittent L quad fasciculations Gait: Extensor tone R ankle, into PF. Mild unsteadiness due to poor motor control of R LE, and inability to use a R arm swing. Small stride length. Stage 4 Balance Test Time (seconds) Feet together 10 Partial tandem 10 Tandem 5 One foot 2 AMPAC: 28% disability Therapeutic activities: To improve performance and steadiness with functional movement patterns. CG required throughout Squat x 20, to improve eccentric control for stand to sit, and stair descention HR x 10 to improve initial step up ability lateral stepping x 5, x 2 bilaterally to improve lateral movement stability Marching x 20, to initiate stair climbing simulation Alt stood tap 6 x 20, to initiate stair climbing simulation Standing hip abd x 10 indira, to initiate brief SLS for stair climbing and ambulation Ambulation of 50 ft x 20 to improve and assess tolerance to household distance ambulation Assessment: Navya demonstrating need for CG for dynamic movements at this time, a she overcomes anxiety provoking pseudoseizure activity. She had a few moments of L quad and LE fasciculations, but were able to overcome with distraction of thinking of her grandson and changing her activity. Continues to require PT to insure safety for return with independent function, with complete resolution of pseudoseizure activity. Recommendations: mental health consultation for counseling on coping techniques to manage anxiety, to ultimately improve assist with functional mobility safety. Plan: Per POC, attempt lengthier ambulation and stair climbing to assess safety, as her pseudoseizure activity lessens.
--- NOTE | 2021-08-29 11:15 | NUR.NOTE ---
RN plays a music guessing game with patient that brightens her spirits and keeps her thinking positive thoughts. Patient relates a certain unpleasant thought concerning not seeing her grandson since 2016. Patient does not know where he lives these days. Grandson's mother was a drug addict and he has disowned her as his mother. Patient has no relationship with her grandson, Bal's mother. Patient said years ago when Bal would visit her, and she was having symptoms like she has had here in the hospital, the symptoms would vanish as he walked thru the door. Nursing Note:
--- NOTE | 2021-08-29 11:23 | NUR.NOTE ---
Patient has a relationship with only one of her daughters. Patient has a relationship with Jessica but not Ale.Nursing Note:
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
--- NOTE | 2021-08-29 11:30 | NUR.NOTE ---
Patient says she still has to prove people she can take care of herself.Nursing Note:
--- NOTE | 2021-08-29 11:41 | W.PM.PROGNOT ---
Date of Service Date of service: 08/29/21 Time of Service: 11:50 Assessment and Plan Assessment and plan (1) Seizure-like activity: Status: Acute Assessment and plan: Episode that hospitalist witness yesterday did not look like a seizure. Pseudoseizure activity is most likely. The patient remains on seizure precautions in the ICU with increased lamictal dose and with keppra 500 mg PO BID. Guardian (Abi) is inquiring if it would be reasonable to resume zonisomide if the patient drinks more water. Await neurology consult on Monday. (2) Partial epilepsy: Status: Acute Assessment and plan: As above. The patient did not tolerate increased doses of keppra in the past, so she is going to continue on keppra 500 mg PO BID as well as increased dose (3) Cerebral palsy: Status: Acute Assessment and plan: right-sided hemiparesis is chronic. PT consulted (4) Anxiety: Status: Acute Assessment and plan: Continue SSRI (5) Porencephalic cyst, congenital: Assessment and plan: MRI of the brain is stable. Probably not a true factor in the current admission. (6) DVT prophylaxis: Status: Acute Assessment and plan: SC enoxaparin (7) Discharge planning issues: Status: Acute Assessment and plan: Full code Keep in the ICU for closer monitoring but can transfer to med-surg unit if remains seizure-free today. Subjective Subjective Patient reports: no new complaints, tolerating a regular diet and afebrile; denies nausea, vomiting or shortness of breath Interval history since last seen: No c/o seizure or seizure-like episode since yesterday. Exam Narrative Exam Narrative: General:Sitting in bed doing word search puzzles and listening to music. Conversant; talks about music and her grandson. HEENT: EOMI, MMM Heart: RRR, no murmur Lungs: CTAB Abdomen: soft, nontender, nondistended Extremities: no edema BLEs Objective Last Vital Signs Temp 36.4 C L 08/29/21 10:57 Pulse 83 08/29/21 10:57 Resp 21 08/29/21 10:57 BP 116/72 08/29/21 10:57 Pulse Ox 97 08/29/21 10:57 PAWSS Have you Been Recently Intoxicated or Drunk Within the Last 30 days?: No Result: 0
--- NOTE | 2021-08-29 12:36 | NUR.NOTE ---
RN speaks to patient about familial issues that involve her daughter Ale who is drug addicted.Nursing Note:
[2021-08-29 13:40] LABS: Levetiracetam 26.9 mcg/mL
[2021-08-29] MEDS: Enoxaparin 40 MG/0.4 ML SYR SC (14:07)
--- NOTE | 2021-08-29 14:10 | NUR.NOTE ---
No signs or symptoms of seizures. Patient quiet in bed listening to classic rock and working on crossword puzzles.Nursing Note:
[2021-08-29] MEDS: lamoTRIgine 100 MG TAB 200 MG PO (21:27)
[2021-08-30] VITALS (7 sets, daily range): BP systolic 95–110; BP diastolic 67–70; PULSE 78–96; RESP 15–24; TEMP 36–36.6
[2021-08-30] MEDS: levETIRAcetam 500 MG TAB PO (08:43)
[2021-08-30] MEDS: lamoTRIgine 100 MG TAB PO (08:43)
[2021-08-30] MEDS: Folic Acid 1 MG TAB PO (08:43)
[2021-08-30] MEDS: Omeprazole 20 MG CAPCR PO (08:43)
[2021-08-30] MEDS: Magnesium Oxide 400 MG TAB PO (08:44)
[2021-08-30] MEDS: PARoxetine 20 MG TAB 60 MG PO (08:44)
--- NOTE | 2021-08-30 11:33 | W.NEUROCONSU ---
Date of service: 08/30/21 Time of Service: 11:34 Assessment and Plan Assessment and plan (1) Pseudoseizure: Status: Acute (2) Partial epilepsy: Status: Acute (3) Cerebral palsy: Status: Acute (4) Anxiety: Status: Acute Assessment and plan: Ms. 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 I discussed this diagnosis with Navya, her sister, and her guardian. We discussed the difference between epileptic and non-epileptic seizures. We discussed that events have no correlation with change in her medicine. We discussed different techniques to treat future events including medication, relaxation. I gave them internet resources on more information. Navya should continue lamotrigine 100mg am and 200mg HS. We discussed use of hydroxyzine 25mg q4hr prn leg shaking. ADRs discussed. She does not need an EEG at this time. She does not drive. She will follow-up with neurology office in 1-2 weeks. History of Present Illness History of Present Illness Chief Complaint: seizures Narrative: Handedness: LEFT. Home Care provider: Tiki and her daughter Farheen (2019- present) Guardian: Abi Blakely (2014-present) Ms. Barron is a 61 year-old woman with epilepsy, porencephalic cyst/CP, developmental delay, nephrolithiasis, depression, and anxiety. I know her and her sister Donna quite well from outpatient clinic. She has 2 seizure types as described below with no known seizure activity since 2016. Seizure Types: #1. CPS: aura of left leg numbness followed by staring off for about 10 seconds. There are no definite automatisms. She has significant postictal fatigue and confusion. None in many years and then 3 in Fall 2013, 1 in 2014 (post-op), 3 in 2016 (one with Strep), 1 in 2017. Last seizure 07/20/16. #2: GTC: begins the same way as #1 but evolves into secondary generalization. She has not had one in more than 10 years, if not longer. In April 2021, due to recurrent renal stones, we began slow transition off zonisamide (400mg HS) to lamotrigine 100mg BID. She has been off ZNS since end of July. She presented to the ER on 08/20/21 with seizure-like activity. I spoke with ER PA Jeffrey Davis at that time. Events sounded non-epileptic: off/on symptoms over 1 hour at home with recurrent activity seen in CT with bilateral LE jerking [id number] with retained consciousness. This then spread to involve arm jerking. Meanwhile she is calling out for her sister and still conversing. She had already been given 5mg IV Versed by EMS. She was given another 5mg IV Valium with no change in activity. She was then given 4mg IV Versed with resolution. (Please note that today, she was able to recall this event and calling out for help, etc). She had a CTH with no acute findings. I reviewed these images personally and this is my personal interpretation. I thought events sounded non-epileptic. She was undergoing increased stress due to her sister in the hospital/ill. I went ahead and recommended increase in LTG to 100mg am and 200mg HS to help with mood and reassurance. She was given an extra 100mg PO LTG in the ER prior to leaving. She presented back to the ER later that night, just after midnight with aging seizure-like activity - confirmed that she took 200mg LTG prior to going to bed around 9pm. She was given another 5mg Versed by EMS and arrived without seizure activity. In the ER, she had another non-epileptic event: She had a spasm and undulating tonic-clonic movement of her legs.? She was able to communicate during the episode. She was given another 5mg Versed as well as 2gm levetiracetam and admitted overnight. She had no further seizure activity. She was discharged to home on LTG 100mg BID and LEV 500mg BID. She was seen by PCP on 08/25/21. Then presented back to ER on 08/27/21 for again ongoing seizure-like activity at home -same description of bilateral leg shaking evolving to whole body shaking without NICOLLE lasting up to an hour. She had another similar event in ER lasting ~10mintues with bilateral LE shaking while awake and alert. ER notes also indicate leg shaking temporarily stopped while she was using her phone. I was contacted and again discussed that these were non-epileptic. Recommended stopping LEV and increasing LTG back to 100mg am and 200mg HS. She had a brain MRI on 08/27/21 with no acute findings. I reviewed these images personally and this is my personal interpretation. During admission, she had another seizure-like event on 08/28/21. Same description and non-epileptic in appearance. She has had no further events since. Today, I was able to meet with Navya, guardian Abi, and sister Donna. Tiki could not be there due to our current limitations on visitors. Navya confirms events. Has recall of all. States no triggers and that she doesn't feel stressed. However, will then discuss how she is worried for her sister. She has a counselor already that she sees once per week. Navya mentions that once she was able to tell her seizure to stop; and it stopped. Review of Systems All systems reviewed & are unremarkable except as noted in HPI and below PFSH All Active Problems (Updated 08/30/21 @ 17:16 by Debra Cruz MD) Pseudoseizure (Acute) Discharge planning issues (Acute) DVT prophylaxis (Acute) Seizure-like activity (Acute) Seizure (Acute) Partial epilepsy (Acute 04/29/14) Cerebral palsy (Acute) right hemiparesis Depressive disorder (Acute 05/08/07) Anxiety (Acute 04/28/13) Medical History Constipation, chronic (02/11/15) -2015 : gastroscopy: oesophagitis and gastritis- Omeprazole x 8 weeks and taper/no nsaids 01-17/colono. normal 2009/chronic laxatives Esophagitis (03/08/16) 03/08/16 [facility]~GRADE 2 Nephrolithiasis Porencephalic cyst, congenital Left Surgical History Breast, Cyst Aspiration (11/22/04) CLAVICLE FX (06/05/06) LEFT Colonoscopy - MAC (~02/26/19) 10/20/08 Ligation of fallopian tube RIB FX (06/27/07) 10TH RIGHT RIB S/P hysterectomy with oophorectomy Family History Mother , AGE 65 Substance abuse Diabetes Heart disease Father Heart disease Alcohol abuse Stroke Sister Diabetes Depression Sister Alcohol abuse Daughter No problems noted. Daughter Asthma Social History Smoking/Tobacco Use Status: Never Smoking risk assessment performed?: Yes Alcohol Intake: former Drug use: Never Substance use type: does not use Caregiver/Support person: Yes (lives in a shared home, has cash applications specialist ) Housing: assisted living facility Number of Children: 2 number of grandchildren: 8 Education Level: high school current occupation: disabled Pets and animals: Yes Pets and animals: dog(s) What is your relationship status?: Panel score (0-1 are the most socially isolated patients): 0 Duration: 30-45 minutes/day Frequency: 3-4 times per week Cherelle/Jehovah'S Witness: None Special cherelle needs: No Do you feel safe at home: Yes Additional Social history: Moved with caregiver Tiki in Fall 2018 (sister Cristal was too old to be caring for her but I believe is still her guardian). WIL Juarez. State appointed guardian Abi. Enjoys knitting, dancing, coloring Visit Medication and Allergies Active Medications Generic Name Dose Route Start Last Admin Trade Name Freq PRN Reason Stop Dose Admin Acetaminophen 0 mg 08/27/21 14:42 Acetaminophen 325 Mg Tab PO Q4H PRN PRN Al Hydrox/Mg Hydrox/Simethicone 30 ml 08/27/21 14:42 Mylanta Suspension 30 Ml Cup PO Q2H PRN PRN Calcium Citrate/Cholecalciferol 1 tab 08/27/21 20:00 08/30/21 08:43 Calcium Citrate/Cholecalciferol 315 Mg/250 Unit Tab PO 1 tab BID AUTUMN Administration Dimethicone/Zinc Oxide 0 gm 08/27/21 14:42 Rosy Protect Cream 142 Gm Tube TP PRN PRN Docusate Sodium 100 mg 08/27/21 14:42 08/29/21 21:26 Docusate Sodium 100 Mg Cap PO 100 mg TID PRN PRN Administration Enoxaparin Sodium 40 mg 08/27/21 15:00 08/29/21 14:07 Enoxaparin 40 Mg/0.4 Ml Syr SC 40 mg Q24H AUTUMN Administration Folic Acid 1 mg 08/28/21 08:30 08/30/21 08:43 Folic Acid 1 Mg Tab PO 1 mg DAILY AUTUMN Administration Sodium Chloride 500 mls @ 0 mls/hr 08/27/21 14:42 Saline 500ml Bag IV PRN PRN As Directed IV Miscellaneous Supplies 1 each 08/27/21 14:45 Iv Access IV DIRECTED AUTUMN Lamotrigine 100 mg 08/28/21 08:30 08/30/21 08:43 Lamotrigine 100 Mg Tab PO 100 mg QAM AUTUMN Administration Lamotrigine 200 mg 08/27/21 22:00 08/29/21 21:27 Lamotrigine 100 Mg Tab PO 200 mg HS AUTUMN Administration Levetiracetam 500 mg 08/27/21 20:00 08/30/21 08:43 Levetiracetam 500 Mg Tab PO 500 mg BID AUTUMN Administration Lorazepam 1 mg 08/28/21 09:28 Lorazepam 2 Mg/Ml Vial IVP Q30 MIN PRN PRN Magnesium Hydroxide 30 ml 08/27/21 14:42 Milk Of Magnesia 30 Ml Cup PO DAILY PRN PRN Magnesium Oxide 400 mg 08/28/21 08:30 08/30/21 08:44 Magnesium Oxide 400 Mg Tab PO 400 mg DAILY AUTUMN Administration Omeprazole 20 mg 08/28/21 07:30 08/30/21 08:43 Omeprazole 20 Mg Capcr PO 20 mg DAILY@0730 AUTUMN Administration Paroxetine HCl 60 mg 08/28/21 08:30 08/30/21 08:44 Paroxetine 20 Mg Tab PO 60 mg DAILY AUTUMN Administration Polyethylene Glycol 17 gm 08/27/21 15:02 Polyethylene Glycol 3350 17 Gm Packet PO DAILY PRN PRN Sodium Chloride 0 ml 08/27/21 14:42 08/29/21 21:26 Normal Saline Flush 10 Ml Syr IVP 10 ml PRN PRN Administration Allergies rizatriptan benzoate [From Maxalt] Allergy (Unknown, Verified 08/27/21 10:44) Silk Tape Adverse Reaction (Unknown, Uncoded 08/27/21 10:44) Skin Rash Exam Narrative Exam Narrative: Physical Exam: Constitutional: Patient of apparent stated age, well nourished, well developed, no acute distress Neck: Supple, no meningismus CV: RRR, S1, S2, no murmur Resp: CTAB Abd: Soft, nontender, nondistended Neuro: MS/Language/Speech: Alert, oriented, clear language (fluency and comprehension), mild dysarthria CN: PERRL, EOMI, visual barron full, trigeminal sensation intact, right nasolabial fold flattening, hearing intact to whisper, palate elevates symmetrically, tongue protrudes midline, SCM and trap strength intact Motor: Right hemiatrophy/hemiparesis with increased spasticity and 0/5 strength distally in UE and LE;?5/5 strength throughout on the left. Sensation: Intact to light touch throughout Reflexes: slightly brisk on R hemibody, downgoing toes Coordination: Finger to nose performed without dysmetria in LUE Gait: not tested Results Last Vital Signs Temp 97.5 F L 08/30/21 04:05 Pulse 84 08/30/21 08:00 Resp 16 08/30/21 08:01 BP 95/67 L 08/30/21 08:00 Pulse Ox 94 08/29/21 20:29 Labs Result diagrams: 08/28/21 06:00 08/28/21 06:00 Labs: Laboratory Results - last 24 hr 08/27/21 12:32 Lamotrigine 9.0 Levetiracetam 26.9
--- NOTE | 2021-08-30 12:39 | DSE_ITS ---
Date of service: 08/30/21 Time of Service: 12:39 DS: Diagnosis Discharge Diagnosis (1) Seizure-like activity: Status: Acute (2) Partial epilepsy: Status: Acute (3) Cerebral palsy: Status: Acute (4) Anxiety: Status: Acute (5) Porencephalic cyst, congenital: (6) DVT prophylaxis: Status: Acute (7) Discharge planning issues: Status: Acute Discharge Plan Disposition Patient Disposition: HOME Condition: Stable Discharge Details Reason For Visit: Pseudoseizures, ,partial epilepsy Admit Date/Time: 08/27/21 14:43 Admit Provider: Fariba Barbosa Attending Provider: Fariba Barbosa Primary Care Provider: Rhianna Garrett Hospital Course Hospital Course: She has a follow up scheduled with Neurology, Dr Cruz. PCP follow up in 1-2 weeks. Home Meds and New Rx's Prescriptions: New lamotrigine 100 mg Tablet 200 mg PO HS Qty: 0 0RF hydroxyzine HCl 25 mg tablet 25 mg PO TID PRNQty: 30 0RF Continued magnesium hydroxide 400 mg (170 mg magnesium) tablet,chewable 400 mg PO DAILY 0RF polyethylene glycol 3350 [Miralax] 17 gram/dose powder 17 g PO DAILY PRN (Reason: constipation) Qty: 850 5RF Rx Instructions: twice a day for 2 days, then once a day. paroxetine HCl [Paxil] 30 mg tablet 60 mg PO DAILY Qty: 180 3RF calcium citrate-vitamin D3 [Calcitrate-Vitamin D] 1 EACH tablet 1 ea PO BID Qty: 90 11RF omeprazole 20 mg capsule,delayed release(DR/EC) 20 mg PO DAILY Qty: 90 3RF Rx Instructions: take one capsule at bedtime folic acid 1 mg tablet 1 mg PO DAILY Qty: 90 4RF Changed lamotrigine 100 mg tablet 100 mg PO DAILY Qty: 180 3RF Rx Instructions: with 25mg tabs Discontinued levetiracetam [Keppra] 500 mg tablet 500 mg PO Q12H Qty: 60 1RF Discharge Instructions Activity:: Activity as Tolerated Equipment/Supplies:: No Equipment Needed Diet:: resume home diet Discharge Orders Discharge Orders: Discharge Order (Routine); Ordered 08/30/21 Ordered By: Jamar Jones DS: Summary Time Spent with Patient providing and/or coordinating discharge services: Greater than 30 minutes Status at Discharge Functional status at discharge: independent ambulation Overall status at discharge: patient is back to baseline Mental Status: mental status grossly normal Speech and Movement: speech clear Mood: congruent mood Affect: anxious affect Exam Narrative Exam Narrative: General:Sitting in bed. Conversant. NAD HEENT: EOMI, MMM Heart: RRR, no murmur Lungs: CTAB Abdomen: soft, nontender, nondistended Extremities: no edema BLEs Psych Mental Status: mental status grossly normal Speech and Movement: speech clear Mood: congruent mood Affect: anxious affect DS: Data Vitals/I&O Vitals and I&O: Vital Signs Temperature 36.6 C 08/30/21 08:00 Temperature Source Temporal Artery Scan 08/30/21 08:00 Pulse 84 08/30/21 08:00 Pulse Rhythm Regular 08/30/21 08:47 Pulse 78 08/30/21 08:01 Respiratory Rate 16 08/30/21 08:01 Respiratory Effort 08/30/21 08:47 Respiratory Depth Normal 08/30/21 08:47 Respiratory Pattern Normal 08/30/21 08:47 Blood Pressure 95/67 L 08/30/21 08:00 Blood Pressure Mean 73 08/30/21 08:00 Blood Pressure Position Right Lateral 08/30/21 04:05 Pulse Oximetry 94 08/29/21 20:29 Oxygen Delivery Method Room Air 08/30/21 04:05 Oxygen Flow Rate 0 08/30/21 04:05 Pain Level 0 08/30/21 04:05 Intake & Output 08/29/21 08/30/21 08/30/21 23:59 11:59 23:59 Intake Total 250 / 410 240 / 240 Output Total 250 / 900 350 / 350 Balance 0 / -490 -110 / -110 Weight 58.4 kg Intake: IV 10 Oral 240 / 400 240 / 240 Output: Urine 250 / 900 350 / 350 Other: Urine Color Yellow Yellow Urine Appearance Clear Clear Urine Odor None None Voiding Methods Bedside Commode Bedside Commode Data Completed and Pending Labs on day of discharge: Labs from last 24 hours 08/27/21 12:32 Lamotrigine 9.0 Levetiracetam 26.9 PFSH All Active Problems Discharge planning issues (Acute) DVT prophylaxis (Acute) Seizure-like activity (Acute) Seizure (Acute) Partial epilepsy (Acute 04/29/14) Cerebral palsy (Acute) right hemiparesis Depressive disorder (Acute 05/08/07) Anxiety (Acute 04/28/13) Medical History Constipation, chronic (02/11/15) -2015 : gastroscopy: oesophagitis and gastritis- Omeprazole x 8 weeks and taper/no nsaids 01-17/colono. normal 2009/chronic laxatives Esophagitis (03/08/16) 03/08/16 [facility]~GRADE 2 Nephrolithiasis Porencephalic cyst, congenital Left Surgical History Breast, Cyst Aspiration (11/22/04) CLAVICLE FX (06/05/06) LEFT Colonoscopy - MAC (~02/26/19) 10/20/08 Ligation of fallopian tube RIB FX (06/27/07) 10TH RIGHT RIB S/P hysterectomy with oophorectomy Family History Mother , AGE 65 Substance abuse Diabetes Heart disease Father Heart disease Alcohol abuse Stroke Sister Diabetes Depression Sister Alcohol abuse Daughter No problems noted. Daughter Asthma Social History Smoking/Tobacco Use Status: Never Smoking risk assessment performed?: Yes Alcohol Intake: former Drug use: Never Substance use type: does not use Caregiver/Support person: Yes (lives in a shared home, has gas dispenser ) Housing: assisted living facility Number of Children: 2 number of grandchildren: 8 Education Level: high school current occupation: disabled Pets and animals: Yes Pets and animals: dog(s) What is your relationship status?: Panel score (0-1 are the most socially isolated patients): 0 Duration: 30-45 minutes/day Frequency: 3-4 times per week Cherelle/Lutheran: None Special cherelle needs: No Do you feel safe at home: Yes Additional Social history: Moved with caregiver Tiki in Fall 2018 (sister Cristal was too old to be caring for her but I believe is still her guardian). CM Ann. State appointed guardian Abi. Enjoys knitting, dancing, coloring
--- NOTE | 2021-08-30 13:03 | PT.INTREAT ---
Date of service: 08/30/21 Time of Service: 09:38 PT Notes Visit Reasons: Pseudoseizures, ,partial epilepsy Inpatient Physical Therapy Treatment Note [facility] Date: 08/30/2021 PRECAUTIONS: Fall, activity as tolerated SUBJECTIVE: Navya is pleasant and agreeable to participating in PT. She states that she feels better walking with a walker, it makes her feel more steady. OBJECTIVE: Issued FWW for at home use. [employer] form completed and submitted to care management. PAIN: No c/o pain BED MOBILITY/TRANSFERS Supine-sit: I Sit-stand: I Stand-sit: I GAIT Assistive Device: FWW Weight bearing: Full Assist: SBA Distance: 200' Deviation: Patient demonstrates unsteady gait and path deviation without use of assitive device THEREX: Patient was instructed in an UE and LE strengthening program, completed in a seated position, as per flow sheet. STAIRS: Up/down 6x4 and 4x6 using U rail and a step-to pattern with SBA ASSESSMENT: Patient tolerated session well, demonstrating improved safety and gait mechancis with use of FWW versus without any assisitive device support. PLAN: Patient to discharge to home later today, per provider. Recommend follow up with PT upon discharge. TREATMENT CODE/TIME: 27 minutes; 35052, [id number] (09:38)
--- NOTE | 2021-08-30 16:33 | PDOC.CMDIS ---
- If Service Date Differs Date of service: 08/30/21 Time of Service: 16:33 LACE Index Scoring Tool - Questions: Length of Stay (in days): 3 Acuity (Admit via E.D.?): Yes E.D. Visits: 3 - Answers: Total Score: 9 Risk of Readmission: Low Risk Care Management Discharge Reason for Hospitalization: Breakthrough Seizures Discharge Plan: Navya returned home today with her caregiver, Tiki. Her guardian, Abi, was present for discharge, as well as her sister. She transported via private vehicle. She will follow up with her PCP and discharge plan of care. Patient/Family Education Needs: Review discharge instructions regarding activity levels and medications, discussion of self care needs and goals of care.
--- NOTE | 2021-08-30 18:50 | INDS_ITS ---
Date of service: 08/30/21 PT Notes Visit Reasons: Pseudoseizures, ,partial epilepsy Inpatient Physical Therapy Evaluation Date: 08/30/2021 Dates of service: 08/28/2021 only Referring Doctor:? Fariba Barbosa MD PT Orders: PT CONSULT: Limited ability Precautions: Epileptic, fall risk Patient Profile/Admitting Diagnosis:? 61-year-old female?presenting to [facility] ER via EMS on 08/27/2021 due to seizure activity, admitted medical management.? She has been admitted 1 week prior with the same diagnosis.? Has a history of epilepsy with focal motor seizures, questionable current pseudoseizures, in the setting of CP with right hemiparesis. PMHX:? All Active Problems? Seizure-like activity (Acute) Seizure (Acute) Partial epilepsy (Acute 04/29/14) Cerebral palsy (Acute) right hemiparesis Depressive disorder (Acute 05/08/07) Anxiety (Acute 04/28/13) Medical History? Constipation, chronic (02/11/15) -2015 : gastroscopy: oesophagitis and gastritis- Omeprazole x 8 weeks and taper/no nsaids 01-17/colono. normal 2009/chronic laxatives Esophagitis (03/08/16) 03/08/16 [facility]~GRADE 2 Nephrolithiasis Porencephalic cyst, congenital Left Surgical History? Breast, Cyst Aspiration (11/22/04) CLAVICLE FX (06/05/06) LEFTColonoscopy - MAC (~02/26/19) 10/20/08 Ligation of fallopian tube RIB FX (06/27/07) 10TH RIGHT RIBS/ hysterectomy with oophorectomy Social History/Home Situation: Navya stating she lives in [place], [place], with a couple by the name of Tiki and Dennis who are her home providers.? She lives in the basement apartment, with 1 flight of stairs to enter the apartment with 2 rails.? She is able to do all her basic house chores and ADLs, Tiki does the cooking for her, she does her self-care.? She does not drive due to her epilepsy.? Talks about her children and grandchildren who live nearby. Current Functional Limitations: Inability to attempt standing due to seizure activity.? Independent with supine to sit edge of bed, due to induced seizure activity required assist to return to bed Equipment Owned/DME: None Subjective: NT. See most recent SENIOR SERVICE TECHNICIAN notes. Objective:? General Observation: NT. See most recent SENIOR SERVICE TECHNICIAN notes. Mental Status: NT. See most recent SENIOR SERVICE TECHNICIAN notes. Pain: NT. See most recent SENIOR SERVICE TECHNICIAN notes. Vital Signs: NT. See most recent SENIOR SERVICE TECHNICIAN notes. ROM: Unable to assess Strength: Unable to assess Bed Mobility/Transfers:? Rolling independent Supine to sit independent Sit to supine independent Sit to stand independent Stand to sit independent Bed to chair independent Chair to bed independent Gait:?Up to 200 feet on level surface ambulation requiring front wheel walker with full weightbearing and standby assist. Without an assistive device patient is able to ambulate 10 feet with path deviation and unsteady gait. Stairs: Up and down 6 x 4 inch steps and 4 x 6 inch steps holding onto 1 rail using step to gait pattern requiring standby assist. Balance:? Static Sitting: Normal Dynamic Sitting: Normal Static Standing: Fair Dynamic Standing: Fair Assessment:??Seen on 08/29/2021 by PT for evalaution and sent home on 08/20/2021 with PT. Patient is a 61 year old female referred to physical therapy services with the diagnosis of epilepsy, with recent exacerbation of condition with questionable pseudoseizures with history of focal motor seizures, in setting of CP with R hemiplegia.? Patient presents with epilepsy and CP with R hemiplegia with clinical signs and symptoms consistent with muscle fasiculations, and rigid L UE.? Goals: Goals X1 week 1. Supine-Sit independent MET 2. Sit-Supine independent MET 3. Sit-Stand independent MET 4. Stand-Sit independent MET 5. Bed-Chair independent MET 6. Chair-Bed independent MET 7. Gait 50ft, household distance, supervision NOT MET 8. Stairs full flight, with two rails, supervision NOT MET 9. Independent with home exercise program NOT MET 10. Balance Fair with dynamic sitting and standing, good with static standing and sitting NOT MET DISCHARGE RECOMMENDATIONS: [] Home with no services [] [X] Home with services. Home when medically cleared by hospitalist. Patient will benefit from home health PT services in order to progress mobility level using least restrictive assistive ambulatory device, assess home safety, identify additional equipment needs, and establish a functional maintenance program that will increase ability of patient to remain at home. [] Home with outpatient PT [] [] SNF for continued rehabilitation [] [] Penitentiary Care [] [] SNF versus LTC based on ability to participate and progress [] TREATMENT CODE/TIME: UT Thank you for the opportunity to participate in the care of this patient. Lucie Chan PT, DPT, CLT [facility] [place], [place]
== END 2021-08-30 13:37 | disposition home or self-care (01) | DRG 101 ==
LOC: ER 15:36 → ICU 16:13
PROVIDERS: Admitting Provider Internal Medicine; Emergency Provider Physician Assistant; PCP Family Medicine; Visit Provider Internal Medicine
DX: R56.9 Unspecified convulsions (principal); G40.109 Localization-related (focal) (partial) symptomatic epilepsy and epileptic syndromes with simple partial seizures, not intractable, without status epilepticus; Q04.6 Congenital cerebral cysts; G81.91 Hemiplegia, unspecified affecting right dominant side; G80.9 Cerebral palsy, unspecified; F41.9 Anxiety disorder, unspecified; F32.9 Major depressive disorder, single episode, unspecified; K59.09 Other constipation
CPT/HCPCS: 36415; 51701; 80048; 80053; 80175; 87635; 96361; 96374; 96375; 97110; 97163; 97530; 99223; 99291; J1650; 70551; 80177; 81003; 83735; 85025; 99222; 99232; 99233; 99239; J2060

== ENCOUNTER → 2021-08-30 07:26 | Outpatient (BNVA) | payer MEDICARE, MEDICAID, SELFPAY | PROVIDERS: PCP Family Medicine; Referring Provider Family Medicine; Visit Provider Psychiatry & Neurology Neurology | DX: R69 Illness, unspecified (principal) ==

== ENCOUNTER → 2021-09-15 13:15 | Outpatient (BNVA) | payer MEDICARE, MEDICAID, SELFPAY | PROVIDERS: PCP Family Medicine; Referring Provider Family Medicine; Visit Provider Psychiatry & Neurology Neurology | DX: G40.109 Localization-related (focal) (partial) symptomatic epilepsy and epileptic syndromes with simple partial seizures, not intractable, without status epilepticus (principal); G81.91 Hemiplegia, unspecified affecting right dominant side | CPT/HCPCS: 99214 ==

== ENCOUNTER → 2021-11-17 10:44 | Outpatient (BNVA) | payer MEDICARE, MEDICAID, SELFPAY | PROVIDERS: PCP Family Medicine; Referring Provider Family Medicine; Visit Provider Psychiatry & Neurology Neurology | DX: G93.0 Cerebral cysts (principal); G40.109 Localization-related (focal) (partial) symptomatic epilepsy and epileptic syndromes with simple partial seizures, not intractable, without status epilepticus; G80.9 Cerebral palsy, unspecified | CPT/HCPCS: 99213 ==

== ENCOUNTER → 2021-12-21 08:15 | Outpatient (BNVA) | payer MEDICARE, MEDICAID, SELFPAY | PROVIDERS: PCP Family Medicine; Referring Provider Family Medicine; Visit Provider Psychiatry & Neurology Neurology | DX: G40.109 Localization-related (focal) (partial) symptomatic epilepsy and epileptic syndromes with simple partial seizures, not intractable, without status epilepticus (principal); G93.0 Cerebral cysts; G81.91 Hemiplegia, unspecified affecting right dominant side | CPT/HCPCS: 99214 ==

== ENCOUNTER → 2022-01-19 10:43 | Outpatient (BNVA) | payer MEDICARE, MEDICAID, SELFPAY | PROVIDERS: PCP Family Medicine; Referring Provider Family Medicine; Visit Provider Psychiatry & Neurology Neurology | DX: G93.0 Cerebral cysts (principal); G40.109 Localization-related (focal) (partial) symptomatic epilepsy and epileptic syndromes with simple partial seizures, not intractable, without status epilepticus; G80.9 Cerebral palsy, unspecified | CPT/HCPCS: 99214 ==

== ENCOUNTER → 2022-03-23 09:44 | Outpatient (BNVA) | payer MEDICARE, MEDICAID, SELFPAY | PROVIDERS: PCP Family Medicine; Referring Provider Family Medicine; Visit Provider Psychiatry & Neurology Neurology | DX: G40.109 Localization-related (focal) (partial) symptomatic epilepsy and epileptic syndromes with simple partial seizures, not intractable, without status epilepticus (principal); G80.9 Cerebral palsy, unspecified | CPT/HCPCS: 99214 ==

== ENCOUNTER → 2022-04-07 02:29 | Outpatient (CLI) | payer MEDICARE, MEDICAID, SELFPAY ==
--- NOTE | 2022-04-07 07:45 | DI.US_ITS ---
Exam(s) US RENAL EXAM: US RENAL CLINICAL HISTORY: monitoring left renal calculi,nephrolithiasis,n20.0 TECHNIQUE: Ultrasound performed using standard protocol. COMPARISON: CT CT ABDOMEN PELVIS WO/W from 02/01/2021 FINDINGS: Renal ultrasound was performed according to the usual protocol. Kidneys are normal in size and shape . There is no evidence of renal mass or hydronephrosis. There is an echogenic focus of the lower po le of the left kidney, no definite posterior acoustic shadowing or twinkle artifact. This may repres ent a small intrarenal nonobstructing calcification. Urinary bladder is nearly empty. Ureteral jets were nonvisualized. IMPRESSION: Possible left lower pole renal calculus. No other significant findings. No evidence of urinary trac t obstruction. DATA REPOSITORY:
== END ==
PROVIDERS: PCP Family Medicine; Visit Provider Nurse Practitioner Gerontology
DX: R93.41 Abnormal radiologic findings on diagnostic imaging of renal pelvis, ureter, or bladder (principal)
CPT/HCPCS: 76770

== ENCOUNTER → 2022-04-12 10:02 | Outpatient (BNVA) | payer MEDICARE, MEDICAID, SELFPAY | PROVIDERS: PCP Family Medicine; Referring Provider Family Medicine; Visit Provider Nurse Practitioner Gerontology | DX: N20.0 Calculus of kidney (principal) | CPT/HCPCS: 81003; 99213 ==

== ENCOUNTER → 2022-07-20 09:33 | Outpatient (BNVA) | payer MEDICARE, MEDICAID, SELFPAY | PROVIDERS: PCP Family Medicine; Referring Provider Family Medicine; Visit Provider Psychiatry & Neurology Neurology | DX: G40.109 Localization-related (focal) (partial) symptomatic epilepsy and epileptic syndromes with simple partial seizures, not intractable, without status epilepticus (principal); G80.9 Cerebral palsy, unspecified; F41.9 Anxiety disorder, unspecified | CPT/HCPCS: 99214 ==

== ENCOUNTER 2022-11-20 12:51 | Emergency (ER) | payer MEDICARE, MEDICAID, SELFPAY ==
[2022-11-20] VITALS (51 sets, daily range): BP systolic 105–119; BP diastolic 64–75; PULSE 69–77; RESP 7–40; TEMP 36.8; O2SAT 91–98
--- NOTE | 2022-11-20 12:53 | ED.GENADUL_ITS ---
Discharge Plan Disposition Patient Disposition: Home Discharge Details Clinical Impression: Convulsions Primary Care Provider: Rhianna Garrett ED Provider: Joe Valentin Home Meds and New Rx's Prescriptions: Continued hydroxyzine HCl 10 mg tablet 10 mg PO Q4H PRN MDD 70mg PRN (Reason: itching, anxiety, or shaking) Qty: 60 5RF polyethylene glycol 3350 [Miralax] 17 gram/dose powder 17 g PO DAILY PRN (Reason: constipation) Qty: 850 5RF Hold Instructions: Home Medication placed on hold at Doctor's office Rx Instructions: twice a day for 2 days, then once a day. bisacodyl [Dulcolax (bisacodyl)] 5 mg tablet,delayed release (DR/EC) 5 mg PO QHS PRN (Reason: constipation > 3 days) Qty: 20 3RF lamotrigine 100 mg tablet See Rx Instructions PO BID Qty: 270 3RF Rx Instructions: 100mg am and 200mg HS PO twice a day; magnesium hydroxide 400 mg (170 mg magnesium) tablet,chewable 400 mg PO DAILY Qty: 90 3RF docusate sodium [Colace] 100 mg capsule 100 mg PO BID Qty: 60 12RF calcium citrate-vitamin D3 [Citracal Regular] 250 mg-5 mcg (200 unit) tablet 1 tab PO BID Qty: 60 5RF paroxetine HCl [Paxil] 30 mg tablet 60 mg PO DAILY Qty: 180 3RF omeprazole 20 mg capsule,delayed release(DR/EC) 20 mg PO DAILY Qty: 90 3RF Rx Instructions: take one capsule at bedtime folic acid 1 mg tablet 1 mg PO DAILY Qty: 90 4RF Discharge Instructions Additional Instructions: Please read all of the information that accompanies these instructions. You were seen in the emergency department for your convulsions. Your blood work showed no sign of any heart attack. Please schedule an appointment with your neurologist later this month. Please return to the emergency department if weakness take any falls or develop a headache. Discharge Data Discharge Date/Time-TO BE ENTERED AT DEPARTURE: 11/20/22 15:36 Medical Decision Making This is an overall very well-appearing normothermic and not tachycardic nor hypoglycemic 62-year-old female with history of partial epilepsy seizure-like activity and pseudoseizures now in the emergency department in setting of convulsions. She had no postictal phase and no loss of bowel nor bladder control nor any tongue biting so my suspicion for breakthrough seizure is low. Will obtain a troponin and ECG to assess for myocardial injury. We will also assess electrolytes and CBC to assess for any acute electrolyte abnormalities and any significant anemia which could have caused syncope. She has no fevers and no nuchal rigidity so my suspicion for meningitis is low. She is not altered to suggest encephalitis. As result I do not feel that she requires a lumbar puncture. She has no head strike and no headache so my suspicion for intracranial hemorrhage and subarachnoid hemorrhage is exceedingly low. As result do not feel that the patient requires a CT head. She is neurologically intact with no aphasic nor does she have any focal neurological abnormalities so I do not feel that the patient is having a CVA nor do I think that she is a tPA candidate. No dysuria no frequency to suggest UTI. 2:07 PM CBC with no anemia thrombocytopenia nor leukocytosis. Basic metabolic panel with no HECTOR and no acute electrolyte abnormalities. Negative troponin. 2:30 PM No recurrent convulsions in the ED. I asked health marketing community liaison Aline to have the patient seen in the next 2 weeks by neurology. I advised patient to return if she developed recurrent convulsions any fevers or any weakness. 338pm I spoke to the patient's guardian, Abi Cornelius. I provided her with an update on the patient's care in the emergency department. Chronic conditions affecting the care of the patient: Epilepsy and pseudoseizures History obtained from an outside historian: Paramedics External record review: [facility] [place] EMR Diagnostic interpretations performed by me: Per my independent interpretation EKG shows: Narrow complex normal sinus rhythm at a rate of 73. Normal axis. Intervals within normal limits. T wave inversion in V2. No ST segment abnormalities. Appears similar to prior dated last year. Medications: N/A Social determinants of health affecting disposition: N/A Management discussed with: Patient's guardian Treatment/interventions considered: Benzodiazepines but deferred given no seizure activity Response to therapies provided: No recurrent convulsions in the ED HPI General Date/Time Provider Initiated Documentation: 11/20/22 12:53 . HPI Narrative: This is a 62-year-old female with a history of partial epilepsy and pseudoseizures now arriving via paramedics in the setting of convulsions. Patient reports being in her usual state of health earlier today. She reports being adherent with her home medications. She reportedly got out of the shower and she began sweating. She noticed that her legs started shaking. She took her rescue medication which is reportedly hydroxyzine. She says that she then developed left leg twitching and this led her to call the paramedics. Paramedics noted bilateral lower extremity shaking for which they administered 2.5 mg of IV midazolam. Patient also had some right lower extremity twitching just before arrival for which they gave an additional 1 mg of IV midazolam. Patient has had no dysuria no chest pain no headaches. She did not fall. She did not bite her tongue. She did not lose control of her bowels nor bladder. She has not missed any doses of her medications. Related Data Home Medications Medication Instructions Recorded Confirmed polyethylene glycol 3350 17 17 g PO DAILY PRN constipation 12/15/20 11/20/22 gram/dose oral powder (Miralax) #850 grams hydroxyzine HCl 10 mg tablet 10 mg PO Q4H PRN PRN itching, 11/17/21 11/20/22 anxiety, or shaking #60 tabs bisacodyl 5 mg tablet,delayed 5 mg PO QHS PRN constipation > 3 12/17/21 07/20/22 release (Dulcolax (bisacodyl)) days #20 tabs magnesium hydroxide 400 mg (170 mg 400 mg PO DAILY #90 tabs 02/10/22 11/20/22 magnesium) chewable tablet docusate sodium 100 mg capsule 100 mg PO BID #60 caps 03/22/22 11/20/22 (Colace) calcium citrate 250 mg 1 tab PO BID #60 tabs 03/30/22 07/20/22 calcium-vitamin D3 5 mcg (200 unit) tablet (Citracal Regular) paroxetine HCl 30 mg tablet (Paxil) 60 mg PO DAILY #180 tab-caps 05/19/22 11/20/22 omeprazole 20 mg capsule,delayed 20 mg PO DAILY #90 caps 06/20/22 11/20/22 release lamotrigine 100 mg tablet See Rx Instructions PO BID #270 07/20/22 11/20/22 tabs folic acid 1 mg tablet 1 mg PO DAILY #90 tab-caps 11/08/22 11/20/22 Previous Rx's Medication Instructions Recorded polyethylene glycol 3350 17 17 g PO DAILY PRN constipation 12/15/20 gram/dose oral powder (Miralax) #850 grams hydroxyzine HCl 10 mg tablet 10 mg PO Q4H PRN PRN itching, 11/17/21 anxiety, or shaking #60 tabs bisacodyl 5 mg tablet,delayed 5 mg PO QHS PRN constipation > 3 12/17/21 release (Dulcolax (bisacodyl)) days #20 tabs magnesium hydroxide 400 mg (170 mg 400 mg PO DAILY #90 tabs 02/10/22 magnesium) chewable tablet docusate sodium 100 mg capsule 100 mg PO BID #60 caps 03/22/22 (Colace) calcium citrate 250 mg 1 tab PO BID #60 tabs 03/30/22 calcium-vitamin D3 5 mcg (200 unit) tablet (Citracal Regular) paroxetine HCl 30 mg tablet (Paxil) 60 mg PO DAILY #180 tab-caps 05/19/22 omeprazole 20 mg capsule,delayed 20 mg PO DAILY #90 caps 06/20/22 release lamotrigine 100 mg tablet See Rx Instructions PO BID #270 07/20/22 tabs folic acid 1 mg tablet 1 mg PO DAILY #90 tab-caps 11/08/22 Allergies Allergy/AdvReac Type Severity Reaction Status Date / Time rizatriptan benzoate Allergy Unknown Verified 07/20/22 09:45 [From Maxalt] aspartame AdvReac Itching Unverified 03/23/22 09:58 [From Metamucil Sugar-Free (aspart)] psyllium AdvReac Itching Unverified 03/23/22 09:58 [From Metamucil Sugar-Free (aspart)] Silk Tape AdvReac Unknown Skin Rash Uncoded 03/23/22 09:56 General CORY: 3 PFSH All Active Problems (Updated 11/20/22 @ 13:02 by Joe Valentin MD) Convulsions (Acute) Pseudoseizure (Acute) Seizure-like activity (Acute) Seizure (Acute) Partial epilepsy (Acute 04/29/14) Cerebral palsy (Acute) right hemiparesis Depressive disorder (Acute 05/08/07) Anxiety (Acute 04/28/13) Medical History Constipation, chronic (02/11/15) -2015 : gastroscopy: oesophagitis and gastritis- Omeprazole x 8 weeks and taper/no nsaids 01-17/colono. normal 2009/chronic laxatives Esophagitis (03/08/16) 03/08/16 [facility]~GRADE 2 Hx of fracture of rib Nephrolithiasis Porencephalic cyst, congenital Left Surgical History S/P breast biopsy cyst aspiration S/P hysterectomy with oophorectomy S/P tubal ligation Family History Mother , AGE 65 Substance abuse Diabetes Heart disease Father Heart disease Alcohol abuse Stroke Sister Diabetes Depression Sister Alcohol abuse Daughter No problems noted. Daughter Asthma Social History Smoking/Tobacco Use Status: Never Smoking risk assessment performed?: Yes Alcohol Intake: former Drug use: Never Substance use type: does not use Caregiver/Support person: Yes (lives in a shared home, has agriculture research director ) Housing: assisted living facility Number of Children: 2 number of grandchildren: 8 Education Level: high school current occupation: disabled Pets and animals: Yes Pets and animals: dog(s) What is your relationship status?: Panel score (0-1 are the most socially isolated patients): 0 Duration: 30-45 minutes/day Frequency: 3-4 times per week Cherelle/Jehovah'S Witness: None Special cherelle needs: No Do you feel safe at home: Yes Additional Social history: Moved with caregiver Tiki in Fall 2018 (sister Cristal was too old to be caring for her but I believe is still her guardian). WIL Juarez. State appointed guardian Abi. Enjoys knitting, dancing, coloring Exam Narrative Exam Narrative: General: Well-appearing in no acute distress speaking in complete sentences. Head: Normocephalic, atraumatic. Eye: Pupils equal, round reactive to light. Extraocular eye movements intact. No conjunctival injection. No scleral icterus. Ear, nose, mouth, throat: Grossly normal inspection. Normal voice, handling secretions normally. Neck: Trachea midline. Cardiovascular: Well-perfused distal extremities. Respiratory: Nonlabored respiration. Gastrointestinal: Nondistended abdomen. Musculoskeletal: No edema. Moving all 4 extremities spontaneously. Skin: Normal for age and race, grossly normal temperature and turgor. No acute rash. Neurologic: Alert and appropriate, no apparent acute deficits. GCS 15. Cranial nerves II through XII intact grossly. No dysmetria. No dysdiadochokinesia. No pronator drift. 5 out of 5 bilateral upper and lower extremity strength. Psychiatric: Mood and manner are appropriate. Grooming and personal hygiene are appropriate.
--- NOTE | 2022-11-20 13:00 | RT.EKG_ITS ---
APPROVED REPORT Exam: Resting ECG Reason for Exam: Convulsions Patient Location: E HR:73 bpm ECG Measurements Heart Rate 73 AXIS MA 146 P 45 QRSd 88 QRS -17 QT 383 T 20 QTc 423 Conclusion Sinus rhythm...normal P axis, V-rate 60- 99 Low voltage, precordial leads...precordial leads <1.0mV Narrow complex normal sinus rhythm at a rate of 73. Normal axis. Intervals within normal limits. T wave inversion in V2. No ST segment abnormalities. Appears similar to prior dated last year.
[2022-11-20 13:35] LABS: Abs Immature Grans 0.02 10^3/uL (0.0-0.06); Absolute Basophil Count 0.06 10^3/uL (0.0-0.2); Absolute Eosinophil Count 0.22 10^3/uL (0.0-0.7); Absolute Lymphocyte Count 2.31 10^3/uL (1.2-3.4); Absolute Monocyte Count 0.38 10^3/uL (0.1-0.8); Absolute Neutrophil Count 2.67 10^3/uL (1.2-6.7); Basophils % 1.1; Eosinophils % 3.9; HCT 39.2 % (36.0-46.0); HGB 13.1 g/dL (11.2-15.7); Immature Grans % 0.4; Lymphocytes % 40.8; MCHC 33.4 % (32.0-36.0); MCV 87 fL (80-95); MPV 9.2 fL (8.0-11.0); Monocytes % 6.7; Neutrophils % 47.1; Platelet Count 285 10^3/uL (130-400); RBC 4.52 10^6/uL (3.93-5.22); RDW 13.2 % (11.7-14.6); RDW-SD 41.3 fL; WBC 5.66 10^3/uL (4.4-10.8)
--- NOTE | 2022-11-20 13:35 | NUR.NOTE ---
Nursing Note: patient stated she felt sweaty, and knees felt wobbly and I had to sit on the floor before she said she felt like she had a seizure.
--- NOTE | 2022-11-20 13:39 | NUR.NOTE ---
Nursing Note: pt spoke of her mother in law dying this year in September
[2022-11-20 14:05] LABS: BUN 15 mg/dL (7-18); Calcium 9.4 mg/dL (8.5-10.1); Chloride 105 mmol/L (98-107); Estimated GFR 62.91 (mL/min/1.73m2); Glucose 94 mg/dL (74-106); Potassium 4.4 mmol/L (3.5-5.1); Sodium 141 mmol/L (136-145); Troponin I < 50 ng/L (<or=60)
--- NOTE | 2022-11-20 14:57 | NUR.NOTE ---
Nursing Note: Referral faxed to Neurology [facility] for convulsions to be ween within next 2 weeks.
--- NOTE | 2022-11-21 11:56 | NUR.NOTE ---
[employer] to reprint for patientNursing Note:
== END 2022-11-20 15:36 | disposition home or self-care (01) ==
PROVIDERS: Emergency Provider Emergency Medicine; PCP Family Medicine
DX: R56.9 Unspecified convulsions (principal)
CPT/HCPCS: 36416; 80048; 82962; 93005; 99283; 84484; 85025; 93010

== ENCOUNTER → 2022-11-23 12:26 | Outpatient (BNVA) | payer MEDICARE, MEDICAID, SELFPAY | PROVIDERS: PCP Family Medicine; Referring Provider Family Medicine; Visit Provider Psychiatry & Neurology Neurology | DX: G40.109 Localization-related (focal) (partial) symptomatic epilepsy and epileptic syndromes with simple partial seizures, not intractable, without status epilepticus (principal); G80.9 Cerebral palsy, unspecified; G93.0 Cerebral cysts | CPT/HCPCS: 99214 ==

== ENCOUNTER 2022-12-30 00:52 | Outpatient (CLI) | payer MEDICARE, MEDICAID, SELFPAY ==
--- NOTE | 2022-12-30 07:15 | DI.MAMMO_ITS ---
Exam(s) MAMMO SCREENING EXAM: MAMMO SCREENING CLINICAL HISTORY: screening,Z12.39 TECHNIQUE: Bilateral full field digital CC and MLO mammographic images were obtained with 3D tomosyn thesis and utilizing computer aided detection (CAD). COMPARISON: Available for comparison. FINDINGS: Masses/Architectural Distortion: None seen. Microcalcifications: No suspicious pleomorphic-type are seen. Skin Thickening/Nipple Retraction: None. IMPRESSION: 1. No significant interval change with no specific features of malignancy noted. 2. Unless there is more urgent need, screening mammography is recommended, as per [place] [employer] guidelines. BI-RADS Category 1 - Negative Breast Density - Category C - Heterogeneously dense Breast density category C or D implies that the patient has dense breast tissue. Dense breast tissue is very common and is not abnormal but dense breast tissue can make it harder to find cancer on a ma mmogram. Also, dense breast tissue may increase their breast cancer risk. This information about the result of the mammogram report was provided to the patient to raise their awareness. Use this report when you speak with the patient about their risks for breast cancer, which includes their family hist ory. At that time, you may recommend for more screening tests (Ultrasound or MRI) as they might be us eful based on their risk. A negative radiographic report should not delay biopsy if a dominant or clinically suspicious mass is present. Up to ten percent of cancers are not identified on mammography. A negative report may reinforce clinical impression. Adenosis and dense breasts may obscure an underlying neoplasm. False positive reports average 6 to 10%. Patient will receive a letter notifying them of these results.
== END 2022-12-30 01:12 ==
PROVIDERS: PCP Family Medicine; Visit Provider Family Medicine
DX: Z12.31 Encounter for screening mammogram for malignant neoplasm of breast (principal)
CPT/HCPCS: 77063; 77067

== ENCOUNTER → 2023-03-27 10:30 | Outpatient (BNVA) | payer MEDICARE, MEDICAID, SELFPAY | PROVIDERS: PCP Family Medicine; Visit Provider Psychiatry & Neurology Neurology | DX: G40.109 Localization-related (focal) (partial) symptomatic epilepsy and epileptic syndromes with simple partial seizures, not intractable, without status epilepticus (principal); G80.9 Cerebral palsy, unspecified; G93.0 Cerebral cysts | CPT/HCPCS: 99214 ==

== ENCOUNTER → 2023-04-10 00:29 | Outpatient (CLI) | payer MEDICARE, MEDICAID, SELFPAY ==
--- NOTE | 2023-04-10 07:30 | DI.US_ITS ---
Exam(s) US RENAL EXAM: US RENAL CLINICAL HISTORY: monitoring left renal calculi,nephrolithiasis,n20.0. TECHNIQUE: Oconnell scale, color and spectral Doppler were used. COMPARISON: US US RENAL from 04/07/2022 FINDINGS: Renal size in cm: Right: 9.5. Left: 9.9. Echogenicity: Normal. Hydronephrosis: No. Cyst or mass: No. Nephrolithiasis: There is a 4 mm echogenic focus in the mid to lower pole of the left kidney which ma y represent a nonobstructing stone. Other findings: None. Bladder:The urinary bladder was incompletely distended with a volume of only 18 cc. Ureteral jets: Right: Not visualized on this examination. Left: Visualized and unremarkable. Prevoid vol:18 cc Postvoid vol:0 cc Renal color flow: Symmetric and within normal limits. IMPRESSION: Echogenic focus in the mid to lower pole of the left kidney which may represent a nonobstructing ston e. DATA REPOSITORY:
== END ==
PROVIDERS: PCP Family Medicine; Visit Provider Nurse Practitioner Gerontology
DX: N20.0 Calculus of kidney (principal)
CPT/HCPCS: 76770

== ENCOUNTER → 2023-04-12 09:53 | Outpatient (BNVA) | payer MEDICARE, MEDICAID, SELFPAY | PROVIDERS: PCP Family Medicine; Referring Provider Family Medicine; Visit Provider Nurse Practitioner Gerontology | DX: N20.0 Calculus of kidney (principal) | CPT/HCPCS: 99213 ==

== ENCOUNTER → 2023-08-30 14:48 | Outpatient (BNVA) | payer MEDICARE, MEDICAID, SELFPAY | PROVIDERS: PCP Family Medicine; Referring Provider Family Medicine; Visit Provider Psychiatry & Neurology Neurology | DX: G40.109 Localization-related (focal) (partial) symptomatic epilepsy and epileptic syndromes with simple partial seizures, not intractable, without status epilepticus (principal); G80.9 Cerebral palsy, unspecified | CPT/HCPCS: 99213 ==

== ENCOUNTER 2023-10-06 10:00 | Outpatient (CLI) | payer MEDICARE, MEDICAID, SELFPAY ==
[2023-10-06 12:11] LABS: Abs Immature Grans 0.01 10^3/uL (0.0-0.06); Absolute Eosinophil Count 0.31 10^3/uL (0.0-0.7); Absolute Monocyte Count 0.41 10^3/uL (0.1-0.8); Absolute Neutrophil Count 3.26 10^3/uL (1.2-6.7); Basophils % 1.7 %; Eosinophils % 5.3 %; HCT 39.7 % (36.0-46.0); HGB 12.9 g/dL (11.2-15.7); Immature Grans % 0.2 %; Lymphocytes % 30.6 %; MCHC 32.5 % (32.0-36.0); MCV 86 fL (80-95); MPV 9.4 fL (8.0-11.0); Neutrophils % 55.2 %; Platelet Count 362 10^3/uL (130-400); RDW 13.2 % (11.7-14.6); WBC 5.89 10^3/uL (4.4-10.8)
[2023-10-06 12:37] LABS: ALT 23 U/L (14-59); AST 17 U/L (15-37); Albumin 3.8 g/dL (3.4-5.0); Alkaline Phosphatase 59 U/L (46-116); Anion Gap 12.5 mmol/L (3-11); BUN 19 mg/dL (7-18); Bilirubin, Total 0.4 mg/dL (0.2-1.0); CO2 24.5 mmol/L (21.0-32.0); CREATININE 1.3 mg/dL (0.55-1.02); Calcium 10.1 mg/dL (8.5-10.1); Chloride 108 mmol/L (98-107); Estimated GFR 45.63 (mL/min/1.73m2); Glucose 102 mg/dL (74-106); Sodium 145 mmol/L (136-145); TSH (W/Ref FT4) 2.13 uIU/mL (0.36-3.74); Total Protein 7.8 g/dL (6.4-8.2)
== END 2023-10-06 10:01 | disposition home or self-care (01) ==
LOC: LOS 10:00
PROVIDERS: PCP Family Medicine; Visit Provider Family Medicine
DX: R61 Generalized hyperhidrosis (principal); L65.9 Nonscarring hair loss, unspecified; Z00.00 Encounter for general adult medical examination without abnormal findings; E03.9 Hypothyroidism, unspecified
CPT/HCPCS: 36415; 80053; 84443; 85025

== ENCOUNTER → 2023-10-18 10:36 | Outpatient (BNVA) | payer MEDICARE, MEDICAID, SELFPAY | PROVIDERS: PCP Family Medicine; Referring Provider Family Medicine; Visit Provider Psychiatry & Neurology Neurology | DX: G80.9 Cerebral palsy, unspecified (principal); M21.41 Flat foot [pes planus] (acquired), right foot; G40.109 Localization-related (focal) (partial) symptomatic epilepsy and epileptic syndromes with simple partial seizures, not intractable, without status epilepticus | CPT/HCPCS: 99213 ==

== ENCOUNTER 2023-10-20 13:46 | Outpatient (REF) | payer MEDICARE, MEDICAID, SELFPAY ==
[2023-10-20 14:22] LABS: Bilirubin Negative (Negative); Blood Negative (Negative); Clarity Cloudy (Clear); Glucose Negative (Negative); Ketones Trace mg/dL (Negative); Leukocyte Esterase Negative (Negative); Nitrite Negative (Negative); Specific Gravity >= 1.030 (1.005-1.025); Urobilinogen 0.2 mg/dL (Up to 0.2); pH 5.5 (5-8)
[2023-10-20 14:50] LABS: COMMENT (LAB VIEW ONLY) 227.71 mg/dL; PROTEIN 25.4 mg/dL; Prot/Crea Ur Ratio 0.11
== END 2023-10-20 13:47 | disposition home or self-care (01) ==
LOC: LBN 13:46
PROVIDERS: PCP Family Medicine; Visit Provider Family Medicine
DX: N18.9 Chronic kidney disease, unspecified (principal)
CPT/HCPCS: 81003; 82565; 84156

== ENCOUNTER 2023-12-19 04:24 | Outpatient (CLI) | payer MEDICARE, MEDICAID, SELFPAY ==
[2023-12-19 09:06] LABS: Anion Gap 7.5 mmol/L (3-11); BUN 14 mg/dL (7-18); CO2 26.5 mmol/L (21.0-32.0); CREATININE 1.1 mg/dL (0.55-1.02); Calcium 9.3 mg/dL (8.5-10.1); Chloride 107 mmol/L (98-107); Estimated GFR 55.76 (mL/min/1.73m2); Glucose 95 mg/dL (74-106); Potassium 3.9 mmol/L (3.5-5.1); Sodium 141 mmol/L (136-145); Uric Acid 3.7 mg/dL (2.6-6.0)
== END 2023-12-19 04:25 | disposition home or self-care (01) ==
LOC: LBO 04:24
PROVIDERS: PCP Family Medicine; Visit Provider Family Medicine
DX: N18.9 Chronic kidney disease, unspecified (principal)
CPT/HCPCS: 36415; 80048; 84550

== ENCOUNTER 2024-02-08 02:42 | Outpatient (CLI) | payer MEDICARE, MEDICAID, SELFPAY ==
--- NOTE | 2024-02-08 06:45 | DI.DEXA_ITS ---
Exam(s) XR DEXA BONE DENSITY W/WO MARINA EXAM: XR DEXA BONE DENSITY W/WO MARINA CLINICAL HISTORY: h/o osteopenia 2013,screening for osteoporosis in postmenopausal woman,z78. TECHNIQUE: COMPARISON: DX DEXA BONE DENSITY WITH MARINA from 05/19/2014 FINDINGS: Lateral Spine Image: Unremarkable. No compression deformities identified. Left hip: Total T-Score: -0.2. This compares to -1.6 on the prior examination. Total Z-Score: -0.8 T- and Z-scores: Findings are consistent with osteopenia. There is osteoporosis in the femoral neck with a T-score of -2.8. Lumbar Spine: Total T-Score: -1.8. This compares to -1.6 on the prior examination. Total Z-Score: 0.0 T- and Z-scores: These are consistent with osteopenia. There is osteoporosis seen in the L3 vertebra l body with a T-score of -2.5. IMPRESSION: Osteoporosis in the left femoral neck and the L3 vertebral body.
--- NOTE | 2024-02-08 06:45 | DI.MAMMO_ITS ---
Exam(s) MAMMO SCREENING EXAM: MAMMO SCREENING CLINICAL HISTORY: screening,z12.39 TECHNIQUE: Bilateral full field digital CC and MLO mammographic images were obtained with 3D tomosyn thesis and utilizing computer aided detection (CAD). COMPARISON: Available for comparison. FINDINGS: Masses/Architectural Distortion: None seen. Microcalcifications: No suspicious pleomorphic-type are seen. Skin Thickening/Nipple Retraction: None. IMPRESSION: 1. No significant interval change with no specific features of malignancy noted. 2. Unless there is more urgent need, screening mammography is recommended, as per [place] [employer] guidelines. BI-RADS Category 1 - Negative Breast Density - Category B - Scattered areas of fibroglandular density Breast density category C or D implies that the patient has dense breast tissue. Dense breast tissue is very common and is not abnormal but dense breast tissue can make it harder to find cancer on a ma mmogram. Also, dense breast tissue may increase their breast cancer risk. This information about the result of the mammogram report was provided to the patient to raise their awareness. Use this report when you speak with the patient about their risks for breast cancer, which includes their family hist ory. At that time, you may recommend for more screening tests (Ultrasound or MRI) as they might be us eful based on their risk. A negative radiographic report should not delay biopsy if a dominant or clinically suspicious mass is present. Up to ten percent of cancers are not identified on mammography. A negative report may reinforce clinical impression. Adenosis and dense breasts may obscure an underlying neoplasm. False positive reports average 6 to 10%. Patient will receive a letter notifying them of these results.
== END 2024-02-08 03:02 ==
LOC: DI 02:43
PROVIDERS: PCP Family Medicine; Visit Provider Family Medicine
DX: M85.89 Other specified disorders of bone density and structure, multiple sites; Z78.0 Asymptomatic menopausal state; Z12.31 Encounter for screening mammogram for malignant neoplasm of breast; Z13.820 Encounter for screening for osteoporosis
CPT/HCPCS: 77063; 77067; 77080

== ENCOUNTER → 2024-02-21 14:47 | Outpatient (BNVA) | payer MEDICARE, MEDICAID, SELFPAY | PROVIDERS: PCP Family Medicine; Visit Provider Psychiatry & Neurology Neurology | DX: G40.109 Localization-related (focal) (partial) symptomatic epilepsy and epileptic syndromes with simple partial seizures, not intractable, without status epilepticus (principal); G80.9 Cerebral palsy, unspecified; M21.41 Flat foot [pes planus] (acquired), right foot | CPT/HCPCS: 99213 ==

== ENCOUNTER 2024-03-05 10:34 | Outpatient (CLI) | payer MEDICARE, MEDICAID, SELFPAY ==
[2024-03-05 13:09] LABS: ALT 20 U/L (14-59); AST 13 U/L (15-37); Albumin 3.8 g/dL (3.4-5.0); Alkaline Phosphatase 60 U/L (46-116); Anion Gap 11.4 mmol/L (3-11); BUN 15 mg/dL (7-18); Bilirubin, Total 0.28 mg/dL (0.2-1.0); CO2 25.6 mmol/L (21.0-32.0); CREATININE 1.3 mg/dL (0.55-1.02); Calcium 9.4 mg/dL (8.5-10.1); Chloride 106 mmol/L (98-107); Estimated GFR 45.63 (mL/min/1.73m2); Glucose 120 mg/dL (74-106); Potassium 3.9 mmol/L (3.5-5.1); Sodium 143 mmol/L (136-145); TSH (W/Ref FT4) 2.52 uIU/mL (0.36-3.74); Total Protein 7.8 g/dL (6.4-8.2); Vitamin D 25 Total 61.6 ng/mL (30-100)
[2024-03-05 18:46] LABS: Parathyroid Hormone,Intact 65 pg/mL (19-88)
[2024-03-06 09:06] LABS: Calcium (Random Urine) 45.3 mg/dL (See Note)
== END 2024-03-05 10:35 | disposition home or self-care (01) ==
LOC: LOS 10:34
PROVIDERS: PCP Family Medicine; Visit Provider Family Medicine
DX: F32.A Depression, unspecified (principal); M81.0 Age-related osteoporosis without current pathological fracture; N18.9 Chronic kidney disease, unspecified; L84 Corns and callosities
CPT/HCPCS: 36415; 80053; 82306; 82340; 83970; 84443

== ENCOUNTER 2024-04-09 01:21 | Outpatient (CLI) | payer MEDICARE, MEDICAID, SELFPAY ==
--- NOTE | 2024-04-09 07:47 | DI.US_ITS ---
Exam(s) US RENAL EXAM: US RENAL CLINICAL HISTORY: monitoring renal calculi,nephrolithiasis,n20.0. TECHNIQUE: Oconnell scale, color and spectral Doppler were used. COMPARISON: US US RENAL from 04/10/2023 FINDINGS: Renal size in cm: Right: 9.2. Left: 9.5. Echogenicity: Normal. Hydronephrosis: No. Cyst or mass: No. Nephrolithiasis: There is a 4 mm echogenic focus in the midpole of the left kidney. This may represe nt a nonobstructing stone. Other findings: None. Bladder:The bladder is incompletely distended. This limits evaluation. Ureteral jets: Right: Not visualized at this examination. Left: Visualized and unremarkable. Prevoid vol:17 cc Renal color flow: Symmetric and within normal limits. IMPRESSION: Echogenic focus in the left kidney which may represent a nonobstructing stone. DATA REPOSITORY:
== END 2024-04-09 01:41 ==
LOC: DI 01:21
PROVIDERS: PCP Family Medicine; Visit Provider Nurse Practitioner Gerontology
DX: N20.0 Calculus of kidney (principal)
CPT/HCPCS: 76770

== ENCOUNTER → 2024-04-10 11:00 | Outpatient (BNVA) | payer MEDICARE, MEDICAID, SELFPAY | PROVIDERS: PCP Family Medicine; Visit Provider Nurse Practitioner Gerontology | DX: N20.0 Calculus of kidney (principal) | CPT/HCPCS: 99213 ==

== ENCOUNTER 2024-08-07 02:30 | Outpatient (CLI) | payer MEDICARE, MEDICAID, SELFPAY ==
--- NOTE | 2024-08-07 11:03 | DI.RAD_ITS ---
Exam(s) XR KNEE LT 3V AP,LAT,LEO EXAM: XR KNEE LT 3V AP,LAT,LEO CLINICAL HISTORY: left knee pain,R52,FLAT FOOT,M21.41. TECHNIQUE: 2D digital imaging was performed. Three views. COMPARISON: CR RIGHT KNEE COMPLETE from 01/30/2008 FINDINGS: BONES: No acute fracture is present. No bony destructive lesion is seen. JOINTS: The knee is normally aligned. No joint effusion is seen. The joint spaces are maintained. Mi nimal periarticular spurring. SOFT TISSUE: Normal. IMPRESSION: Minimal degenerative changes DATA REPOSITORY: RADIATION DOSE DELIVERED:
== END 2024-08-07 02:50 ==
LOC: DI 02:30
PROVIDERS: PCP Family Medicine; Visit Provider Family Medicine
DX: M21.41 Flat foot [pes planus] (acquired), right foot; M79.672 Pain in left foot
CPT/HCPCS: 73562

== ENCOUNTER 2024-08-09 00:45 | Outpatient (CLI) | payer MEDICARE, MEDICAID, SELFPAY ==
[2024-08-09 12:31] LABS: Calculated LDL 200 mg/dL (<100); Cholesterol 303 mg/dL (<200); HDL Cholesterol 81 mg/dL (>or=50); Triglyceride 113 mg/dL (<150)
== END 2024-08-09 00:46 | disposition home or self-care (01) ==
LOC: LOS 00:45
PROVIDERS: PCP Family Medicine; Referring Provider Family Medicine; Visit Provider Family Medicine
DX: Z13.6 Encounter for screening for cardiovascular disorders (principal)
CPT/HCPCS: 36415; 80061

== ENCOUNTER 2024-08-19 01:27 | Outpatient (CLI) | payer MEDICARE, MEDICAID, SELFPAY ==
--- NOTE | 2024-08-19 06:30 | DI.MRI_ITS ---
Exam(s) MR LOWER JOINT LT WO EXAM: MR LOWER JOINT LT WO CLINICAL HISTORY: left knee pain, heard a snap,m25.562. TECHNIQUE: Multiplanar multisequence MRI was performed. COMPARISON: CR XR KNEE LT 3V AP,LAT,LEO from 08/07/2024 FINDINGS: Exam is mildly limited by motion. BONES: There is no fracture or contusion pattern. Mild spurring at the lateral femoral condyle and la teral tibial plateau. JOINTS: A small joint effusion is present. There is a small synovial cysts or ganglia posterior to t he femoral condyles. Articular cartilage: Patellofemoral joint: Minimal defect at the lateral patellar facet. Medial femoral tibial joint: Mild cartilage thinning. Lateral femoral tibial joint: Articular mild cartilage thinning. No focal defect. LIGAMENTS/TENDONS: Anterior Cruciate: Unremarkable. Posterior Cruciate: Unremarkable. Medial Collateral:Unremarkable. Lateral Collateral ligament complex: Unremarkable. Extensor mechanism: Unremarkable. Medial retinaculum: Unremarkable. Lateral retinaculum: Unremarkable. Popliteus: Unremarkable. MENISCI: The medial meniscus is unremarkable. The lateral meniscus is unremarkable. MUSCLES: Unremarkable. SOFT TISSUES: Unremarkable. IMPRESSION: The exam is mildly limited by motion. No evidence of ligament tear or meniscal tear. Small joint ef fusion. Mild degenerative changes. DATA REPOSITORY:
== END 2024-08-19 01:47 ==
LOC: DI 01:27
PROVIDERS: PCP Family Medicine; Visit Provider Nurse Practitioner Family
DX: M25.562 Pain in left knee (principal)
CPT/HCPCS: 73721

== ENCOUNTER 2024-09-10 00:53 | Outpatient (CLI) | payer MEDICARE, MEDICAID, SELFPAY ==
--- NOTE | 2024-09-10 06:45 | DI.RAD_ITS ---
Exam(s) XR FOOT LT COMPLETE EXAM: XR FOOT LT COMPLETE CLINICAL HISTORY: Left foot pain,M79.672. TECHNIQUE: 2D digital imaging was performed. Three views. COMPARISON: CR XR FOOT LT COMPLETE from 05/14/2019 FINDINGS: BONES: There is an old distal 5th metatarsal fracture. No acute fracture is present. No bony destruc tive lesion is seen. JOINTS: No dislocation present. Hammertoe deformities. SOFT TISSUE: Normal. IMPRESSION: Hammertoe deformities. Old 5th metatarsal fracture. DATA REPOSITORY: RADIATION DOSE DELIVERED:
--- NOTE | 2024-09-10 06:45 | DI.RAD_ITS ---
Exam(s) XR FOOT RT COMPLETE EXAM: XR FOOT RT COMPLETE CLINICAL HISTORY: Right foot pain,M79.671. TECHNIQUE: 2D digital imaging was performed. Three views. COMPARISON: CR XR FOOT LT COMPLETE from 09/10/2024 FINDINGS: BONES: No acute fracture is present. No bony destructive lesion is seen. JOINTS: No dislocation present. No significant degenerative changes. Hammertoe deformities. SOFT TISSUE: Normal. IMPRESSION: Hammertoe deformities. DATA REPOSITORY: RADIATION DOSE DELIVERED:
== END 2024-09-10 01:13 ==
LOC: DI 00:53
PROVIDERS: PCP Family Medicine; Visit Provider Podiatrist
DX: M79.671 Pain in right foot (principal); M79.672 Pain in left foot; M20.42 Other hammer toe(s) (acquired), left foot; M20.41 Other hammer toe(s) (acquired), right foot; B35.1 Tinea unguium; L84 Corns and callosities; M24.571 Contracture, right ankle
CPT/HCPCS: 99214; 73630

== ENCOUNTER 2024-11-18 15:19 | Outpatient (CLI) | payer MEDICARE, MEDICAID, SELFPAY ==
--- NOTE | 2024-11-18 14:15 | DI.RAD_ITS ---
Exam(s) XR CHEST 2V PA LATERAL EXAM: XR CHEST 2V PA LATERAL CLINICAL HISTORY: cough,? pneumonia,R05.9 TECHNIQUE: 2D digital imaging was performed of the chest. Two images were obtained. PA and lateral views were obtained. COMPARISON: CR CHEST 2 VIEWS PA,LAT from 08/02/2015 FINDINGS: MEDIASTINUM: Normal. HEART: Normal. PULMONARY VASCULATURE: Normal. LUNGS: Clear. PLEURAL SPACE: No pleural effusion or pneumothorax. BONE:Within normal limits for the patient's age. OTHER FINDINGS:Normal. IMPRESSION: No acute pulmonary findings. DATA REPOSITORY: RADIATION DOSE DELIVERED:
== END 2024-11-18 15:39 ==
LOC: DI 15:19
PROVIDERS: PCP Family Medicine; Visit Provider Physician Assistant
DX: R05.9 Cough, unspecified (principal)
CPT/HCPCS: 71046

== ENCOUNTER → 2024-11-26 12:14 | Outpatient (BNVA) | payer MEDICARE, MEDICAID, SELFPAY | PROVIDERS: PCP Family Medicine; Referring Provider Family Medicine; Visit Provider Psychiatry & Neurology Neurology | DX: G40.109 Localization-related (focal) (partial) symptomatic epilepsy and epileptic syndromes with simple partial seizures, not intractable, without status epilepticus (principal); G80.9 Cerebral palsy, unspecified; M21.41 Flat foot [pes planus] (acquired), right foot | CPT/HCPCS: 99215 ==

== ENCOUNTER 2025-02-11 10:41 | Outpatient (CLI) | payer MEDICARE, MEDICAID, SELFPAY ==
--- NOTE | 2025-02-11 12:39 | DI.MAMMO_ITS ---
Exam(s) MAMMO SCREENING EXAM: MAMMO SCREENING CLINICAL HISTORY: screening,Z12.39. TECHNIQUE: Bilateral full field digital CC and MLO mammographic images were obtained with 3D tomosynthesis and utilizing computer aided detection (CAD). COMPARISON: Prior mammograms were reviewed. FINDINGS: There has been no significant change in the appearance and distribution of the fibroglandular tissue. Small benign-appearing nodule laterally in the right breast is unchanged from prior mammograms. There are no new spiculated masses nor malignant appearing microcalcification groups. There is no significant architectural distortion nor skin thickening-retraction. IMPRESSION: No radiographic evidence of malignancy. BI-RADS Category 1 - Negative Breast Density - Category B - There are scattered areas of fibroglandular density. Breast density Category C or D implies that the patient has dense breast tissue. Dense breast tissue can make it harder to find cancer on a mammogram. Dense breast tissue is also associated with an increased risk of breast cancer. This information about the result of the mammogram report was provided to the patient to raise their awareness. Use this report when you speak with the patient about their risks for breast cancer, which includes their family history. At that time, you may recommend additional screening tests (Ultrasound or MRI) as these tests may add significant information. A negative radiographic report should not delay biopsy if a dominant or clinically suspicious mass is present. Up to ten percent of cancers are not identified on mammography. A negative report may reinforce clinical impression. Adenosis and dense breasts may obscure an underlying neoplasm. False positive reports average 6 to 10%. Patient will receive a letter notifying them of these results.
== END 2025-02-11 11:01 ==
PROVIDERS: PCP Family Medicine; Visit Provider Family Medicine
DX: Z12.31 Encounter for screening mammogram for malignant neoplasm of breast (principal); M24.541 Contracture, right hand
CPT/HCPCS: 77063; 77067

== ENCOUNTER → 2025-02-14 11:00 | Outpatient (BNVA) | payer MEDICARE, MEDICAID, SELFPAY | PROVIDERS: PCP Family Medicine; Referring Provider Family Medicine; Visit Provider Surgery | DX: K59.09 Other constipation (principal); R19.5 Other fecal abnormalities; R14.0 Abdominal distension (gaseous); Z87.898 Personal history of other specified conditions | CPT/HCPCS: 99214 ==

== ENCOUNTER → 2025-02-20 14:37 | Outpatient (BNVA) | payer MEDICARE, MEDICAID, SELFPAY | PROVIDERS: PCP Family Medicine; Visit Provider Psychiatry & Neurology Neurology | DX: G40.109 Localization-related (focal) (partial) symptomatic epilepsy and epileptic syndromes with simple partial seizures, not intractable, without status epilepticus (principal); G80.9 Cerebral palsy, unspecified; M21.41 Flat foot [pes planus] (acquired), right foot | CPT/HCPCS: 99213 ==

== ENCOUNTER 2025-03-27 03:53 | Outpatient (CLI) | payer MEDICARE, MEDICAID, SELFPAY ==
--- NOTE | 2025-03-27 07:30 | DI.US_ITS ---
Exam(s) US PELVIS TRANSVAGINAL EXAM: US PELVIS TRANSVAGINAL CLINICAL HISTORY: pelvic pressure, h/o pelvic tumor,s/p bso,z90.722,z90.79,z87.898. TECHNIQUE: Transabdominal and transvaginal pelvic ultrasound was performed using standard protocol. COMPARISON: No exams were available for comparison FINDINGS: UTERUS: Position: Retroverted. Size: 5.7 x 3.4 x 4.1 cm Endometrium: 0.3 cm. Normal for patient's menstrual status. Myometrium: Unremarkable. Cervix: There is some heterogeneity seen in the region of the cervix. There is a subtle area of echogenicity anteriorly in the cervix measuring 1.4 cm. OVARIES: Patient has had a bilateral oophorectomy. CUL-DE-SAC: Free fluid: None. Other: None. IMPRESSION: 1. Question of a mass in the anterior cervix. Please correlate with physical exam. MRI should be considered for further evaluation. 2. Status post bilateral oophorectomy. Unexpected findings DATA REPOSITORY:
== END 2025-03-27 04:13 ==
LOC: DI 03:54
PROVIDERS: PCP Family Medicine; Visit Provider Surgery
DX: N20.0 Calculus of kidney (principal); Z90.722 Acquired absence of ovaries, bilateral; Z87.898 Personal history of other specified conditions
CPT/HCPCS: 76830; 76856

== ENCOUNTER 2025-03-27 12:31 | Outpatient (CLI) | payer MEDICARE, MEDICAID, SELFPAY ==
--- NOTE | 2025-03-27 12:00 | DI.US_ITS ---
Exam(s) US RENAL EXAM: US RENAL CLINICAL HISTORY: monitoring renal calculi,nephrolithiasis, N20.0. TECHNIQUE: Oconnell scale imaging and color doppler were used. COMPARISON: US US RENAL from 04/10/2023 US US RENAL from 04/09/2024 FINDINGS: Right kidney: 9.8cm Echogenicity: Normal Hydronephrosis: No Cyst or mass: No Nephrolithiasis: No Left kidney: 10.5cm Echogenicity: Normal Hydronephrosis: No Cyst or mass: No Nephrolithiasis: 5 millimeter echogenic focus at the lower pole of the left kidney. It was measured at 4 millimeters on the previous exam. Bladder:Normal. Both ureteral jets were visualized. Prevoid vol:66 cc Postvoid vol:0 cc IMPRESSION: 5 millimeters stone in the lower pole of the left kidney. No evidence of hydronephrosis. DATA REPOSITORY:
== END 2025-03-27 12:51 ==
LOC: DI 12:31
PROVIDERS: PCP Family Medicine; Visit Provider Nurse Practitioner Gerontology
DX: N20.0 Calculus of kidney (principal)
CPT/HCPCS: 76770; 76830; 76856

== ENCOUNTER → 2025-04-03 10:27 | Outpatient (BNVA) | payer MEDICARE, MEDICAID, SELFPAY | PROVIDERS: PCP Family Medicine; Referring Provider Family Medicine; Visit Provider Nurse Practitioner Gerontology | DX: N20.0 Calculus of kidney (principal) | CPT/HCPCS: 99213; 81002 ==

== ENCOUNTER 2025-04-03 10:29 | Outpatient (REF) | payer MEDICARE, MEDICAID, SELFPAY | END 2025-04-03 10:30 | disposition home or self-care (01) | LOC: LBN 10:29 | PROVIDERS: PCP Family Medicine; Visit Provider Obstetrics & Gynecology | DX: Z12.4 Encounter for screening for malignant neoplasm of cervix (principal) | CPT/HCPCS: 88142; 87624 ==

== ENCOUNTER 2025-04-10 07:43 | Day surgery (SDC) | payer MEDICARE, MEDICAID, SELFPAY ==
--- NOTE | 2025-04-09 17:22 | ANES.PREOP_ITS ---
General Info Date of Service Date Performed: 04/10/25 Height: 5 ft 2 in Weight: 72.688 kg Body Mass Index (BMI): 29.2 Surgical Procedure: Operation Date: 04/10/25 08:50 Proposed Procedure Side Surgeon kaiden Meyer MD Meds Allergies and Home Medications Allergies Allergy/AdvReac Type Severity Reaction Status Date / Time adhesive tape Allergy Intermediate Itching Verified 04/10/25 08:10 rizatriptan benzoate (From AdvReac Unknown Nausea Verified 04/10/25 08:10 Maxalt) aspartame (From Metamucil AdvReac Itching Verified 04/10/25 08:10 Sugar-Free (aspart)) psyllium (From Metamucil AdvReac Itching Verified 04/08/25 13:58 Sugar-Free (aspart)) Home Medication Medication Instructions Recorded alendronate 70 mg tablet 70 mg PO QWEEK #13 tabs 10/0 06/28 Held on 07/12/24. Instructions: upcoming dental work atorvastatin 40 mg tablet 40 mg PO QHS #90 tabs ketoconazole 2 % topical cream 1 applic topical DAILY #120 grams 09/10/24 omeprazole 20 mg capsule,delayed 20 mg PO DAILY #90 ca ps 12/23/24 release ammonium lactate 12 % topical cream 1 applic topical B ID PRN dry skin 01/08/25 #280 grams docusate sodium 100 mg capsule 100 mg PO BID #60 caps 01/08/25 (Colace) folic acid 1 mg tablet 1 mg PO DAILY #90 tab-caps 0 01/08/25 lactulose 10 gram/15 mL oral 20 g (30 mL) PO TID PRN 0 01/08/25 solution constipation #3,000 mL magnesium hydroxide 400 mg/5 mL 5 ml PO DAILY PRN cons tipation 01/08/25 oral suspension (Milk of Magnesia) #3,780 mL magnesium oxide 400 mg (241.3 mg 400 mg PO DAILY #90 t abs 01/08/25 magnesium) tablet paroxetine HCl 30 mg tablet (Paxil) 60 mg (2 x 30 mg) PO DAILY #180 01/08/25 tab-caps polyethylene glycol 3350 17 17 g PO DAILY PRN constipa tion 01/08/25 gram/dose oral powder (Miralax) #850 grams propylene glycol 0.6 % eye drops 1 drp ophthalmic (eye ) DAILY PRN 01/08/25 (Systane Balance) dry eye(s) #20 mL calcium 250 mg (as 1 tab PO BID #60 tabs citrate)-vitamin D3 5 mcg (200 unit) tablet (Citracal Regular) bisacodyl 5 mg tablet,delayed 5 mg PO ONCE #8 tabs 05/29 release (Dulcolax (bisacodyl)) polyethylene glycol 3350 17 17 g PO ONCE #238 grams gram/dose oral powder hydroxyzine HCl 10 mg tablet 10 mg PO Q4H PRN PRN itch ing, 02/20/25 anxiety, or shaking #60 tabs lamotrigine 100 mg tablet See Rx Instructions PO BID # 270 02/20/25 tabs Current Visit Medications: Current Medications Generic Name Dose Route Start Last Admin Trade Name Freq PRN Reason Stop Dose Admin Ringer's Solution 1,000 mls @ 80 mls/hr 04/10/25 06:00 IV 04/10/25 23:59 INFUSION AUTUMN IV Miscellaneous Supplies 1 each 04/10/25 06:00 Iv Access IV 04/10/25 23:59 DIRECTED AUTUMN Sodium Biphosphate/Sodium Phosphate 133 ml 04/10/25 06:00 Na Phosphate Enema-Adult 133 Ml Btl SD 04/10/25 23:59 DIRECTED PRN Sodium Chloride 0 ml 04/10/25 06:00 Normal Saline Flush 10 Ml Syr IV 04/10/25 23:59 PRN PRN Sodium Chloride 0 ml 04/10/25 06:00 Normal Saline 10 Ml Vial IJ 04/10/25 23:59 DIRECTED PRN Sterile Water 0 ml 04/10/25 06:00 Water,Injection,Sterile 10 Ml Vial IJ 04/10/25 23:59 DIRECTED PRN PFSH Active Problems Active Problems: Problem Status Onset Code Dysuria Acute R30.0 Abnormal cervix finding Acute N88.9 History of pelvic mass Acute Z87.898 Contracture, right hand Acute M24.541 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 Onychomycosis Acute B35.1 Equinus contracture of right ankle Acute M24.571 Knee pain Acute M25.569 Foot callus Acute L84 Osteoporosis of femur without pathological fracture Acute 02/2024 M81.0 CKD (chronic kidney disease) Chronic N18.9 Arm skin lesion, left Acute L98.9 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 Acute M21.41 Diaphoresis Acute R61 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 Seizure-like activity Chronic R56.9 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 G40.109 Depressive disorder Chronic 05/08/07 F32.9 Constipation, chronic Acute 02/11/15 K59.09 Cerebral palsy Chronic G80.9 Anxiety Chronic 04/28/13 F41.9 Medical History Medical History Serous cystadenoma of ovary (~2014) Hx of fracture of rib Porencephalic cyst, congenital Left Nephrolithiasis Esophagitis (03/08/16) 03/08/16 [facility]GRADE 2 Surgical History Surgical History Status post bilateral salpingo-oophorectomy (BSO) (2014) S/P tubal ligation S/P breast biopsy cyst aspiration Tobacco Smoking/Tobacco Use Status: Never Passive smoking exposure: Yes Second hand exposure: Yes Alcohol Alcohol Intake: former Substance Use Substance use: Never Substance use type: does not use Vital Signs and Lab Results Vital Signs Most Recent Vital Signs in EMR: Temp Pulse Resp BP Pulse Ox 36.6 C 79 16 117/70 99 04/10/25 08:17 04/10/25 08:17 04/10/25 08:17 04/10/25 08:17 04/10/25 08:17 Anesthesia Assessment and Plan Anesthesia History Personal History: Other Family History: No Family History of Anesthesia Complications Exercise Tolerance Exercise Tolerance: Metabolic Equivalents>4 Cardiac & Pulmonary Exam Cardiac Exam: Normal S1/S2 Heart Sounds Pulmonary Exam: Clear Bilateral Breath Sounds Implantable Cardiac Device Does patient have a Pacemaker or an ICD?: No Airway Exam Known Difficult Airway: No Mallampati Class: 3 Mouth Opening: Normal (> 3cm) Thyromental Distance: Less than 3 cm Neck Range of Motion: Full ROM Neck Circumference: Normal Teeth Condition: Normal Dentition (missing fronts) ASA Classification ASA Score: ASA 2 Emergency Case?: No NPO Status NPO Status: NPO Clears >2 hours, Solids >8 hours Anesthesia Plan Resuscitation Status: Full Code Anesthesia Technique: General Anesthesia Airway Planned: Natural Airway Monitors Used: Standard Monitors Preoperative Comments:: 64 yo for colo. Sig PMHx: esophagitis (omeprazole), CKD, cerebral palsy, partial epilepsy (followed by neurology lamotrigine), psuedoseizure (hydroxyzine), depression Never smoker/EtOH. ECG: sinus. Previous Anes: - EGD/colo, prop, natural airway, no issues.
[2025-04-10 08:17] VITALS: BP 117/70; PULSE 79; RESP 16; TEMP 36.6; O2SAT 99
--- NOTE | 2025-04-10 08:29 | W.PM.HP.N ---
Date of service: 04/10/25 Time of Service: 08:29 Assessment and Plan Assessment and plan (1) Constipation, chronic: Status: Acute (2) Change in bowel habits: Status: Acute (3) Abdominal bloating: Status: Acute Assessment and plan: proceed with planned colonoscopy evaluation of symptoms. Ruling out colon or rectal obstructive process and rectocele. consent obtained from guardian. History of Present Illness History of Present Illness Chief Complaint: colonoscopy Narrative: 64yo F here for colonoscopy due to abd bloating, constipation and change in stool habits. She was seen in office in february for her concerns about her abdomen. She has history of cystadenoma in the pelvis s/p resection and is concerned something is blockin her rectum, possibly a recurrence. Pelvic US showed no pelvic masses and only a possible cervical lesion. Cervical exam conducted by floor finisher was normal follown that exam. HPI from that visit is as follows for reference. The patient is a 64-year-old female referred for chronic constipation and atonic colon with recent bowel habit changes. She reports a sensation of incomplete bowel movements, feeling as though something is obstructing the passage. Her symptoms began in 11/2024, characterized by difficulty in passing stools, which vary in size from small to large and extremely bulky. She also experiences significant bloating, particularly noticeable at night. She has been avoiding cheese since childhood due to its constipating effects. She recalls a similar episode during her when she had a fever of 102 degrees, which was attributed to severe constipation. She has a history of intermittent constipation but notes that her bowel movements were regular for some time until the summer of 2024. She underwent radical srgery through a laparotomy incision for grapefruit sized pelvic tumor and is concerned about its recurrence. She does not recall if it was ovarian or uterine but does recall it was benign. She has given to two children naturally. was using lactulose successfully to help manage lifelong constipation issues but it has nt been working lately. Caregiver present for visit and notes the patients stools have been so large and bulky recently that they have to be removed from the toilet rather than flushed. Pt diagnosed with CP and has a legal guardian who will need to be contacted for consents. 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 normal 2009/chronic laxatives Cerebral palsy (Chronic) right hemiparesis Anxiety (Chronic 04/28/13) Medical History Serous cystadenoma of ovary (~2014) Hx of fracture of rib Porencephalic cyst, congenital Left Nephrolithiasis Esophagitis (03/08/16) 03/08/16 [facility]GRADE 2 Surgical History Status post bilateral salpingo-oophorectomy (BSO) (2014) S/P tubal ligation S/P breast biopsy cyst aspiration Family History Mother , AGE 65 Substance abuse Diabetes Heart disease Father Heart disease Alcohol abuse Stroke Sister Diabetes Depression Sister Alcohol abuse Daughter No problems noted. 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 ) Household members: friend(s) and caregiver Housing: apartment Number of Children: 2 number of grandchildren: 9 Communication Needs: Corrective Lenses Education Level: high school Do you need help understanding health information?: Often current occupation: disabled Pets and animals: Yes Pets and animals: dog(s) Sexually active: No Do you think of yourself as: straight/heterosexual Current gender identity: female What is your relationship status?: How often do you talk on the phone with friends or family?: decline to answer How often do you attend gnosticist or oriental orthodox services?: decline to answer Panel score (0-1 are the most socially isolated patients): 0 What type of physical activity do you participate in: walking Cherelle/Mormonism: None Special cherelle needs: No Seatbelt use: always Helmet use: Yes Helmet use: always Working smoke detector in home: Yes Carbon monox detector in home: Yes Firearms in home: No Do you feel safe at home: Yes Do you feel safe in your relationship?: Yes Victim of physical abuse: No Victim of emotional abuse: No Victim of sexual abuse: No Would you like helpful sources: Yes Additional Social history: [facility] Allergies and Home Medications Allergies Allergy/AdvReac Type Severity Reaction Status Date / Time adhesive tape Allergy Intermediate Itching Verified 04/10/25 08:10 rizatriptan benzoate (From AdvReac Unknown Nausea Verified 04/10/25 08:10 Maxalt) aspartame (From Metamucil AdvReac Itching Verified 04/10/25 08:10 Sugar-Free (aspart)) psyllium (From Metamucil AdvReac Itching Verified 04/08/25 13:58 Sugar-Free (aspart)) Home Medications Medication Instructions Recorded Confirmed Type alendronate 70 mg tablet 70 mg PO QWEEK #13 tabs 03/05/24 04/10/25 Rx Held on 07/12/24. Instructions: upcoming dental work atorvastatin 40 mg tablet 40 mg PO QHS #90 tabs 08/09/24 04/10/25 Rx ketoconazole 2 % topical cream 1 applic topical DAILY #120 grams 09/10/24 04/10/25 Rx omeprazole 20 mg capsule,delayed 20 mg PO DAILY #90 caps 12/23/24 04/10/25 Rx release ammonium lactate 12 % topical cream 1 applic topical BID PRN dry skin 01/08/25 04/10/25 Rx #280 grams docusate sodium 100 mg capsule 100 mg PO BID #60 caps 01/08/25 04/10/25 Rx (Colace) folic acid 1 mg tablet 1 mg PO DAILY #90 tab-caps 01/08/25 04/10/25 Rx lactulose 10 gram/15 mL oral 20 g (30 mL) PO TID PRN 01/08/25 04/10/25 Rx solution constipation #3,000 mL magnesium hydroxide 400 mg/5 mL 5 ml PO DAILY PRN constipation 01/08/25 04/10/25 Rx oral suspension (Milk of Magnesia) #3,780 mL magnesium oxide 400 mg (241.3 mg 400 mg PO DAILY #90 tabs 01/08/25 04/10/25 Rx magnesium) tablet paroxetine HCl 30 mg tablet (Paxil) 60 mg (2 x 30 mg) PO DAILY #180 01/08/25 04/08/25 Rx tab-caps polyethylene glycol 3350 17 17 g PO DAILY PRN constipation 01/08/25 04/10/25 Rx gram/dose oral powder (Miralax) #850 grams propylene glycol 0.6 % eye drops 1 drp ophthalmic (eye) DAILY PRN 01/08/25 04/10/25 Rx (Systane Balance) dry eye(s) #20 mL calcium 250 mg (as 1 tab PO BID #60 tabs 01/20/25 04/10/25 Rx citrate)-vitamin D3 5 mcg (200 unit) tablet (Citracal Regular) bisacodyl 5 mg tablet,delayed 5 mg PO ONCE #8 tabs 02/14/25 04/10/25 Rx release (Dulcolax (bisacodyl)) polyethylene glycol 3350 17 17 g PO ONCE #238 grams 02/14/25 04/10/25 Rx gram/dose oral powder hydroxyzine HCl 10 mg tablet 10 mg PO Q4H PRN PRN itching, 02/20/25 04/10/25 Rx anxiety, or shaking #60 tabs lamotrigine 100 mg tablet See Rx Instructions PO BID #270 02/20/25 04/10/25 Rx tabs Exam Narrative Exam Narrative: awake, NAD eomi, MMM midline trachea, neck is symmetric PULM: normal resp effort, equal chest rise with respiration, no wheezing audible CARDIAC: normal PMI, no jvd, regular rate, normal perfusion abdomen is nondistended. extremities are without deformity, normal movement of all four extremities speech is clear and coherent mood and affect are congruent, no focal neurological deficits skin without rash Results Last Vital Signs Temp 97.9 F 04/10/25 08:17 Pulse 79 04/10/25 08:17 Resp 16 04/10/25 08:17 BP 117/70 04/10/25 08:17 Pulse Ox 99 04/10/25 08:17 Time Spent Time spent with Patient: 40-54 minutes Time was spent: preparing to see the patient(eg.review tests), counseling the patient and care coordination
[2025-04-10 08:32] VITALS: BMI 29.2
[2025-04-10] MEDS: Lactated Ringers 1,000 ML 80 ML IV (08:38)
--- NOTE | 2025-04-10 08:54 | W.PM.DSUDISC ---
Date of service: 04/10/25 Discharge Plan Disposition Patient Disposition: Home Condition: Stable Discharge Details Reason For Visit: Diagnostic colonoscopy for constipation Attending Provider: Flor Meyer Primary Care Provider: Rhianna Garrett Recommendations for Follow Up Recommended tests to be ordered by follow up provider: Normal colonoscopy, redundant colon. Try linzess or other combos of fiber and laxatives to try to ease the texture of the stool to help with emptying. Next screening due in 10 years, consider cologuard. Home Meds and New Rx's Prescriptions: Continued ketoconazole 2 % cream 1 applic topical DAILY Qty: 120 6RF Rx Instructions: Apply to toenails once daily lactulose 10 gram/15 mL solution 20 g PO TID PRN (Reason: constipation) Qty: 3000 3RF paroxetine HCl [Paxil] 30 mg tablet 60 mg PO DAILY Qty: 180 3RF polyethylene glycol 3350 [Miralax] 17 gram/dose powder 17 g PO DAILY PRN (Reason: constipation) Qty: 850 5RF Rx Instructions: twice a day for 2 days, then once a day. Systane Balance 0.6 % drops 1 drp ophthalmic (eye) DAILY PRN (Reason: dry eye(s)) Qty: 20 3RF magnesium oxide 400 mg (241.3 mg magnesium) tablet 400 mg PO DAILY Qty: 90 3RF magnesium hydroxide [Milk of Magnesia] 400 mg/5 mL suspension 5 ml PO DAILY PRN (Reason: constipation) Qty: 3780 4RF folic acid 1 mg tablet 1 mg PO DAILY Qty: 90 4RF docusate sodium [Colace] 100 mg capsule 100 mg PO BID Qty: 60 12RF ammonium lactate 12 % cream 1 applic topical BID PRN (Reason: dry skin) Qty: 280 0RF alendronate 70 mg tablet 70 mg PO QWEEK Qty: 13 3RF lamotrigine 100 mg tablet See Rx Instructions PO BID Qty: 270 3RF Rx Instructions: 100mg am and 200mg HS PO twice a day; hydroxyzine HCl 10 mg tablet 10 mg PO Q4H PRN MDD 70mg PRN (Reason: itching, anxiety, or shaking) Qty: 60 5RF atorvastatin 40 mg tablet 40 mg PO QHS Qty: 90 3RF omeprazole 20 mg capsule,delayed release(DR/EC) 20 mg PO DAILY Qty: 90 3RF Rx Instructions: take one capsule at bedtime calcium citrate-vitamin D3 [Citracal Regular] 250 mg-5 mcg (200 unit) tablet 1 tab PO BID Qty: 60 5RF Discontinued bisacodyl [Dulcolax (bisacodyl)] 5 mg tablet,delayed release (DR/EC) 5 mg PO ONCE Qty: 8 0RF Rx Instructions: Take per colonoscopy instructions provided by ordering providers office polyethylene glycol 3350 17 gram/dose powder 17 g PO ONCE Qty: 238 0RF Rx Instructions: Take per colonoscopy instructions provided by ordering providers office Discharge Instructions Additional Instructions: Colonoscopy today is normal meaning no cancer or blockages and no evidence of rectocele. The change in bowel habits and constipation bulky stools problems are likely due to the colon losing its ability to push stools out normally over time. A combination of medications and laxatives can be used with the help of the primary care provider to find an effective balance to the stool habits. See Dr Garrett back in follow up to discuss adding different laxatives, fiber, or trying Linzess perhaps. Stand Alone Forms: Portal Information Activity:: Activity as Tolerated Diet:: As Tolerated Discharge Orders Discharge Orders: Discharge Order (Routine); Ordered 04/10/25 Ordered By: Flor Meyer DS: Diagnosis Discharge Diagnosis (1) Constipation, chronic: Status: Acute (2) Change in bowel habits: Status: Acute (3) Abdominal bloating: Status: Acute (4) Redundant colon: Status: Acute
[2025-04-10 09:22] VITALS: BP 127/76; PULSE 78; RESP 16; TEMP 36; O2SAT 95
--- NOTE | 2025-04-10 09:25 | W.ANESPOSTOP ---
Postoperative Evaluation Date, Time and Location Date Performed: 04/10/25 Time Performed: : Patient Location: Day Surgery Unit Vital Signs Most Recent Imported Vital Signs: Most Recent Vital Signs Temp Pulse Resp BP Pulse Ox 36.0 C L 78 16 127/76 95 04/10/25 09:22 04/10/25 09:22 04/10/25 09:22 04/10/25 09:22 04/10/25 09:22 Pain Score Most Recent Pain Score: Most Recent Pain Score Pain Level 0 04/10/25 09:22 Assessment Mental Status: Awake (Alert & Oriented to Patient Baseline) Airway and Respiratory Function: Patent airway with normal (patient baseline) respiratory exam Cardiovascular Function: Hemodynamically Stable Hydration Status: Adequately Hydrated Nausea & Vomiting: No Nausea or Vomiting Pain: Pt. Denies Any Pain Peripheral Nerve Block: Patient did not receive a nerve block
--- NOTE | 2025-04-10 09:42 | W.COLOREPORT ---
Date of service: 04/10/25 Time of Service: 09:42 Colonoscopy Report Date of procedure: 04/10/25 Pre-op diagnosis general: constipation, bloating, change in bowel habits Post-op diagnosis procedure note: same (normal colon and rectum, redundant colon) Procedure: Colonoscopy Surgeon: Flor Meyer Anesthesia Type: General:No Airway Estimated blood loss (mL): 0 Pathology: none sent Complications: None Prep: Miralax/Dulcolax (good) Procedure Description: Informed consent was obtained and the patient was taken to the procedure area. The patient was placed in left lateral decubitus position on the procedure table. Timeout was performed. Anesthesia was induced. A lubricated colonoscope was inserted through the anus and passed to the cecum. The cecum was identified by the ileocecal valve and the appendiceal orifice. The scope was then slowly withdrawn and the colonic and rectal mucosa examined. TI intubated and examined. It appears normal. There are no colon or rectal mass lesions, polyps, AVMs. There is no inflammatory change. No diverticulosis was seen. The scope was retroflexed in the anorectal junction examined. Uncomplicated internal hemorrhoids present. Redundant colon noted with rsidual liquid prep. Poor emptying. Assessment and plan: chronic constipation change in bowel habits abdominal bloating Normal colonoscopy. Redundant colon suggests chronic constipation and a gradual loss of normal colonic function to pass stools forward for defecation. Recommend stool texture modification with fiber and laxative adjustments, and consideration of Linzess and similar agents to move bowels. Follow up with PCP for management. Next screening colonoscopy will be due in 10 years. consider cologuard screening.
[2025-04-10 09:52] VITALS: BP 125/67; PULSE 69; RESP 16; TEMP 36.3; O2SAT 97
== END 2025-04-10 07:44 | disposition home or self-care (01) ==
PROVIDERS: PCP Family Medicine; Visit Provider Surgery
PROC: 0DJD8ZZ Inspection of Lower Intestinal Tract, Via Natural or Artificial Opening Endoscopic (ICD-10-PCS; CPT 45378; principal; 2025-04-10 08:45)
DX: K59.09 Other constipation (principal); R14.0 Abdominal distension (gaseous)
CPT/HCPCS: 45378; J2704

== ENCOUNTER → 2025-05-22 00:34 | Outpatient (CLI) | payer MEDICARE, MEDICAID, SELFPAY ==
--- NOTE | 2025-05-22 09:30 | DI.US_ITS ---
Exam(s) US THYROID EXAM: US THYROID CLINICAL HISTORY: nodule seen on CT at [facility],E04.1. TECHNIQUE: Ultrasound thyroid performed using standard protocol. COMPARISON: None FINDINGS: ISTHMUS: 5 mm RIGHT LOBE: Size: 5.7 x 2.1 x 1.7 cm Echogenicity: Normal. Vascularity: Normal. Nodules: None. Several tiny colloid cysts. LEFT LOBE: Size: 0.9 x 1.9 cm Echogenicity: Normal. Vascularity: Normal. Nodules: Lower pole solid nodule measuring 3.3 by 1.7 x 2.2 cm. Isoechoic, wider than tall with extrathyroidal extension inferiorly. There punctate as well as macrocalcifications. TR 5. FNA recommended. 1.2 centimeter isoechoic nodule in the midportion, TR 3. OTHER FINDINGS: No adenopathy. IMPRESSION: 3.3 centimeter nodule at the lower pole of the left lobe of the thyroid with inferior extrathyroidal extension. TR 5. FNA recommended. DATA REPOSITORY:
== END ==
LOC: DI 00:34
PROVIDERS: PCP Family Medicine; Visit Provider Family Medicine
DX: E04.1 Nontoxic single thyroid nodule (principal)
CPT/HCPCS: 76536

== ENCOUNTER 2025-05-23 15:12 | Outpatient (REF) | payer MEDICARE, MEDICAID, SELFPAY ==
[2025-05-23 21:32] LABS: TSH (W/Ref FT4) 0.83 uIU/mL (0.55-4.78)
== END 2025-05-23 15:13 | disposition home or self-care (01) ==
LOC: LBN 15:12
PROVIDERS: PCP Family Medicine; Visit Provider Family Medicine
DX: E03.9 Hypothyroidism, unspecified (principal); E04.1 Nontoxic single thyroid nodule
CPT/HCPCS: 84443